=== PATIENT | male | born 1940 | race Caucasian/White ===

== ENCOUNTER 2021-01-03 08:47 | Outpatient (CLI) | payer MEDICARE, SELFPAY | END 2021-01-03 08:48 | disposition home or self-care (01) | LOC: ANHCOVIDVC 08:47 | PROVIDERS: PCP Family Medicine | DX: Z23 Encounter for immunization (principal) | CPT/HCPCS: 0001A; 91300 ==

== ENCOUNTER 2021-01-24 08:51 | Outpatient (CLI) | payer MEDICARE, SELFPAY | END 2021-01-24 08:52 | LOC: ANHCOVIDVC 08:52 | PROVIDERS: PCP Family Medicine | DX: Z23 Encounter for immunization (principal) | CPT/HCPCS: 0002A; 91300 ==

== ENCOUNTER 2021-04-13 10:49 | Outpatient (CLI) | payer MEDICARE, SELFPAY ==
--- NOTE | ~2021-04-13 | XR_ITS ---
EXAMINATION: XR lumbar spine min 4V DATE: 04/13/2021 11:33 INDICATION: Low back pain TECHNIQUE: Anteroposterior and lateral in neutral, flexion and extension views of the lumbar spine we re obtained. COMPARISON: None. FINDINGS: There are 9 mm of anterolisthesis of L4 on L5. No laxity is present with flexion or extensi on. There is moderate loss of intervertebral disc space height at L3-4 and severe loss of disc space height throughout the remainder of the lumbar spine. There are 33 degrees of lumbar dextroscoliosis. There is no fracture. The vertebral body heights are maintained. Degenerative osteophytes project fro m the anterior endplates of multiple vertebral bodies. Calcified atherosclerosis is noted. IMPRESSION: 1. Lumbar dextroscoliosis and severe spondylosis. Reviewed, dictated and finalized at location A.
== END 2021-04-13 10:50 | disposition home or self-care (01) ==
PROVIDERS: PCP Internal Medicine
DX: M41.9 Scoliosis, unspecified (principal); M47.816 Spondylosis without myelopathy or radiculopathy, lumbar region; I70.90 Unspecified atherosclerosis
CPT/HCPCS: 72110

== ENCOUNTER 2021-07-28 14:24 | Outpatient (CLI) | payer MEDICARE, SELFPAY ==
--- NOTE | 2021-07-31 13:38 | WPDPFTINT ---
PFT Procedure Performed PFT Procedure Performed Spirometry with Pre/Post Bronchodilator Plethysmography (Lung Vol) Diffusing Cap (DLCO) Flow Vol Loop PFT Interpretation Lung volumes were measured with the body plethysmography method. Lung volumes are unremarkable. Spirometry showed normal expiratory flow rates and a normal FEV1 to FVC ratio 72%. Following administration of a bronchodilator, there was no significant increase in expiratory flow rates. Lung diffusion capacity is within the normal range. The flow volume loop is unremarkable. Impression: Spirometry, lung volumes, and lung diffusion capacity all within the normal range.
== END 2021-07-28 14:25 | disposition home or self-care (01) ==
LOC: ANHPFT 14:26
PROVIDERS: PCP Internal Medicine; Visit Provider Nurse Practitioner
DX: R50.9 Fever, unspecified (principal)
CPT/HCPCS: 94060; 94726; 94729

== ENCOUNTER 2022-09-03 13:53 | Outpatient (CLI) | payer MEDICARE, SELFPAY ==
--- NOTE | ~2022-09-03 | US_ITS ---
EXAMINATION: US renal BI DATE: 09/03/2022 14:39 INDICATION: Chronic kidney disease, history of right nephrectomy TECHNIQUE: Multiple grayscale and Doppler ultrasound images of the left kidney were obtained. COMPARISON: None. FINDINGS: The right kidney is surgically absent. The left kidney measures 12.2 x 6.2 x 7.7 cm and con tains a 2.0 cm cyst. The kidney demonstrates normal parenchymal echogenicity. There is no hydronephro sis. The bladder is normal. IMPRESSION: 1. Left kidney cyst, otherwise unremarkable left kidney. Reviewed, dictated and finalized at location F.
[2022-09-03 16:29] LABS: Anion Gap 10 mmol/L (8-16); Blood Urea Nitrogen 26 mg/dL (9-20); Calcium 8.7 mg/dL (8.4-10.2); Carbon Dioxide 26 mmol/L (22-30); Chloride 101 mmol/L (98-107); Estimated Glomerular Filt Rate 53; Glucose 93 mg/dL (65-110); Phosphorus 3.4 mg/dL (2.5-4.5); Sodium 137 mmol/L (137-145)
[2022-09-03 17:14] LABS: Creatinine Urine 33.5 mg/dL; Total Protein Urine Random 24 mg/dL; Ur Ttl Prot Creatinine Ratio 0.72 mg/mg (0-0.20)
[2022-09-03 17:16] LABS: Sodium Urine Random 47 meq/L
[2022-09-06 00:24] LABS: Albumin 3.6 g/dL (3.8-4.8); Alpha 1 Globulin 0.3 g/dL (0.2-0.3); Alpha 2 Globulin 0.8 g/dL (0.5-0.9); Beta 1 Globulin 0.5 g/dL (0.4-0.6); Gamma Globulin 0.8 g/dL (0.8-1.7); Protein, Total 6.3 g/dL (6.1-8.1)
[2022-09-06 22:21] LABS: ANCA Screen Negative (Negative)
[2022-09-09 05:45] LABS: Total Protein/Creatinine Ratio 406 mg/g creat (25-148)
[2022-09-09 09:02] LABS: Anti Glomerular Basement Memb <1.0 AI (<1.0)
== END 2022-09-03 13:54 | disposition home or self-care (01) ==
PROVIDERS: PCP Internal Medicine; Visit Provider Internal Medicine Nephrology
DX: N18.31 Chronic kidney disease, stage 3a (principal); Z90.5 Acquired absence of kidney
CPT/HCPCS: 36415; 76775; 80069; 82570; 83520; 84155; 84156; 84165; 84166; 84300; 86036; 86038; 86039; 86225

== ENCOUNTER 2023-01-01 13:05 | Outpatient (CLI) | payer MEDICARE, SELFPAY ==
[2023-01-01 13:46] LABS: Creatinine Urine 82.4 mg/dL; Total Protein Urine Random 103 mg/dL; Ur Ttl Prot Creatinine Ratio 1.25 mg/mg (0-0.20)
[2023-01-01 13:55] LABS: Albumin Level 4.3 g/dL (3.5-5.1); Anion Gap 7 mmol/L (8-16); Blood Urea Nitrogen 25 mg/dL (9-20); Calcium 9.2 mg/dL (8.4-10.2); Carbon Dioxide 28 mmol/L (22-30); Chloride 102 mmol/L (98-107); Estimated Glomerular Filt Rate 49; Glucose 112 mg/dL (65-110); Phosphorus 3.7 mg/dL (2.5-4.5); Potassium 4.7 mmol/L (3.4-5.0); Sodium 137 mmol/L (137-145)
[2023-01-01 14:06] LABS: Parathyroid Intact 83.9 pg/mL (7.5-53.5)
[2023-01-01 14:11] LABS: Vitamin D 25 Hydroxy 47.4 ng/mL
== END 2023-01-01 13:06 | disposition home or self-care (01) ==
LOC: ANHLAB 13:08
PROVIDERS: PCP Internal Medicine; Visit Provider Internal Medicine Nephrology
DX: N18.31 Chronic kidney disease, stage 3a (principal); I12.9 Hypertensive chronic kidney disease with stage 1 through stage 4 chronic kidney disease, or unspecified chronic kidney disease; Z90.5 Acquired absence of kidney
CPT/HCPCS: 36415; 80069; 82306; 82570; 83970; 84156

== ENCOUNTER 2023-05-06 11:07 | Outpatient (CLI) | payer MEDICARE, SELFPAY ==
[2023-05-06 11:52] LABS: Albumin Level 3.8 g/dL (3.5-5.1); Anion Gap 7 mmol/L (8-16); Blood Urea Nitrogen 25 mg/dL (9-20); Calcium 8.8 mg/dL (8.4-10.2); Carbon Dioxide 30 mmol/L (22-30); Chloride 102 mmol/L (98-107); Estimated Glomerular Filt Rate 53; Glucose 98 mg/dL (65-110); Phosphorus 3.8 mg/dL (2.5-4.5); Sodium 139 mmol/L (137-145)
[2023-05-06 12:14] LABS: Creatinine Urine 94.3 mg/dL; Total Protein Urine Random 100 mg/dL; Ur Ttl Prot Creatinine Ratio 1.06 mg/mg (0-0.20)
== END 2023-05-06 11:08 | disposition home or self-care (01) ==
PROVIDERS: PCP Internal Medicine; Visit Provider Internal Medicine Nephrology
DX: N18.31 Chronic kidney disease, stage 3a (principal); I12.9 Hypertensive chronic kidney disease with stage 1 through stage 4 chronic kidney disease, or unspecified chronic kidney disease; Z90.5 Acquired absence of kidney
CPT/HCPCS: 36415; 80069; 82570; 84156

== ENCOUNTER 2023-09-03 14:41 | Outpatient (CLI) | payer MEDICARE, SELFPAY ==
[2023-09-03 15:20] LABS: Creatinine Urine 73.2 mg/dL; Total Protein Urine Random 145 mg/dL; Ur Ttl Prot Creatinine Ratio 1.98 mg/mg (0-0.20)
[2023-09-03 15:26] LABS: Anion Gap 10 mmol/L (8-16); Blood Urea Nitrogen 25 mg/dL (9-20); Calcium 9.1 mg/dL (8.4-10.2); Carbon Dioxide 27 mmol/L (22-30); Chloride 103 mmol/L (98-107); Estimated Glomerular Filt Rate 49; Glucose 118 mg/dL (65-110); Phosphorus 3.1 mg/dL (2.5-4.5); Potassium 4.1 mmol/L (3.4-5.0); Sodium 140 mmol/L (137-145)
[2023-09-03 15:37] LABS: Parathyroid Intact 84.4 pg/mL (7.5-53.5)
[2023-09-03 15:50] LABS: Vitamin D 25 Hydroxy 41.2 ng/mL
== END 2023-09-03 14:42 | disposition home or self-care (01) ==
PROVIDERS: PCP Internal Medicine; Visit Provider Internal Medicine Nephrology
DX: E55.9 Vitamin D deficiency, unspecified (principal); I12.9 Hypertensive chronic kidney disease with stage 1 through stage 4 chronic kidney disease, or unspecified chronic kidney disease; N18.31 Chronic kidney disease, stage 3a; N25.81 Secondary hyperparathyroidism of renal origin; Z90.5 Acquired absence of kidney
CPT/HCPCS: 36415; 80069; 82306; 82570; 83970; 84156

== ENCOUNTER 2024-01-01 14:19 | Outpatient (CLI) | payer MEDICARE, SELFPAY ==
[2024-01-01 14:51] LABS: Albumin Level 4.1 g/dL (3.5-5.1); Anion Gap 7 mmol/L (8-16); Blood Urea Nitrogen 23 mg/dL (9-20); Calcium 9.2 mg/dL (8.4-10.2); Carbon Dioxide 27 mmol/L (22-30); Chloride 102 mmol/L (98-107); Estimated Glomerular Filt Rate 58; Glucose 118 mg/dL (65-110); Phosphorus 3.2 mg/dL (2.5-4.5); Potassium 4.2 mmol/L (3.4-5.0); Sodium 136 mmol/L (137-145)
[2024-01-01 15:02] LABS: Creatinine Urine 51.4 mg/dL; Total Protein Urine Random 131 mg/dL; Ur Ttl Prot Creatinine Ratio 2.55 mg/mg (0-0.20)
== END 2024-01-01 14:20 | disposition home or self-care (01) ==
LOC: ANHLAB 14:21
PROVIDERS: PCP Internal Medicine; Visit Provider Internal Medicine Nephrology
DX: I12.9 Hypertensive chronic kidney disease with stage 1 through stage 4 chronic kidney disease, or unspecified chronic kidney disease (principal); N18.31 Chronic kidney disease, stage 3a; Z90.5 Acquired absence of kidney
CPT/HCPCS: 36415; 80069; 82570; 84156

== ENCOUNTER 2024-01-23 12:37 | Outpatient (CLI) | payer MEDICARE, SELFPAY ==
--- NOTE | ~2024-01-23 | CT_ITS ---
Non-contrast CT scan of the Abdomen Clinical indication: History of renal cell carcinoma Technique: 2.5 mm axial scans were obtained through the abdomen without intravenous or oral contrast . Dose reduction technique was used on this scan by utilizing automated exposure control and iterativ e reconstruction technique. The dose-length product (DLP) was 1052.57 mGy-cm. Findings: Images through the lung bases reveal fissural nodules along the right minor fissure (axial image 6). 5 mm pleural-based nodule noted the right lung base (axial image 16). 4 mm right middle lo be nodule noted (axial image 21). Additional 4 mm pleural-based nodule the right lower lobe noted (ax ial image 23).. 12 mm low-density hepatic lesion is most compatible small cyst. The spleen, pancreas, gallbladder, le ft adrenal gland, and left kidney appear normal. Status post right nephrectomy and right adrenalectom y. There are atherosclerotic calcifications of the aorta. . Evidence of prior herniorrhaphy. Visualized bowel loops are unremarkable. Impression: Several subcentimeter pulmonary nodules the right lung base. The proximal most likely benign, early m etastatic disease not completely excluded given history. Comparison with any prior CT scans would be useful if available. Otherwise, consider follow-up CT in 3 have in 6 months to assure stability of th e nodules. No evidence of recurrent metastatic disease in the abdomen otherwise. Status post right nephrectomy a nd right adrenalectomy. Reviewed, dictated and finalized at location . Impression: Several subcentimeter pulmonary nodules the right lung base. The proximal most likely benign, early metastatic disease not completely excluded given history. Comparison with any prior CT scans would be useful if available. 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 No evidence of recurrent metastatic disease in the abdomen otherwise. Status po st right nephrectomy and right adrenalectomy.
== END 2024-01-23 12:38 | disposition home or self-care (01) ==
PROVIDERS: PCP Internal Medicine; Visit Provider Internal Medicine Nephrology
DX: Z90.5 Acquired absence of kidney (principal); I12.9 Hypertensive chronic kidney disease with stage 1 through stage 4 chronic kidney disease, or unspecified chronic kidney disease; N18.9 Chronic kidney disease, unspecified
CPT/HCPCS: 74150

== ENCOUNTER 2024-05-12 14:37 | Outpatient (CLI) | payer MEDICARE, SELFPAY ==
[2024-05-12 15:56] LABS: Albumin Level 4.1 g/dL (3.5-5.1); Anion Gap 12 mmol/L (4-12); Blood Urea Nitrogen 23 mg/dL (9-20); Calcium 9.5 mg/dL (8.4-10.2); Carbon Dioxide 25 mmol/L (22-30); Chloride 102 mmol/L (98-107); Estimated Glomerular Filt Rate 58; Glucose 96 mg/dL (65-110); Phosphorus 3.2 mg/dL (2.5-4.5); Potassium 3.7 mmol/L (3.4-5.0); Sodium 139 mmol/L (137-145)
[2024-05-12 15:58] LABS: Creatinine Urine 95.2 mg/dL; Total Protein Urine Random 108 mg/dL; Ur Ttl Prot Creatinine Ratio 1.13 mg/mg (0-0.20)
[2024-05-12 16:07] LABS: Parathyroid Intact 94.2 pg/mL (7.5-53.5)
[2024-05-12 18:51] LABS: Vitamin D 25 Hydroxy 41.4 ng/mL
== END 2024-05-12 14:38 | disposition home or self-care (01) ==
LOC: ANHLAB 14:40
PROVIDERS: PCP Internal Medicine; Visit Provider Internal Medicine Nephrology
DX: I12.9 Hypertensive chronic kidney disease with stage 1 through stage 4 chronic kidney disease, or unspecified chronic kidney disease (principal); N18.31 Chronic kidney disease, stage 3a; E55.9 Vitamin D deficiency, unspecified; N25.81 Secondary hyperparathyroidism of renal origin; Z90.5 Acquired absence of kidney
CPT/HCPCS: 36415; 80069; 82306; 82570; 83970; 84156

== ENCOUNTER 2024-09-15 15:01 | Outpatient (CLI) | payer MEDICARE, SELFPAY ==
[2024-09-15 15:39] LABS: Albumin Level 4.2 g/dL (3.5-5.1); Anion Gap 7 mmol/L (4-12); Blood Urea Nitrogen 29 mg/dL (9-20); Calcium 9.4 mg/dL (8.4-10.2); Carbon Dioxide 29 mmol/L (22-30); Chloride 102 mmol/L (98-107); Estimated Glomerular Filt Rate 49; Glucose 99 mg/dL (65-110); Phosphorus 3.6 mg/dL (2.5-4.5); Potassium 4.4 mmol/L (3.4-5.0); Sodium 138 mmol/L (137-145)
[2024-09-15 15:46] LABS: Creatinine Urine 89.6 mg/dL; Total Protein Urine Random 39 mg/dL; Ur Ttl Prot Creatinine Ratio 0.44 mg/mg (0-0.20)
[2024-09-15 15:50] LABS: Parathyroid Intact 74.2 pg/mL (14.5-75.2)
[2024-09-15 16:03] LABS: Vitamin D 25 Hydroxy 47.1 ng/mL
== END 2024-09-15 15:02 | disposition home or self-care (01) ==
PROVIDERS: PCP Internal Medicine; Visit Provider Internal Medicine Nephrology
DX: I12.9 Hypertensive chronic kidney disease with stage 1 through stage 4 chronic kidney disease, or unspecified chronic kidney disease (principal); N18.31 Chronic kidney disease, stage 3a; Z90.5 Acquired absence of kidney; N25.81 Secondary hyperparathyroidism of renal origin; E55.9 Vitamin D deficiency, unspecified
CPT/HCPCS: 36415; 80069; 82306; 82570; 83970; 84156

== ENCOUNTER 2025-03-16 14:03 | Outpatient (CLI) | payer MEDICARE, SELFPAY ==
--- OUTSIDE RECORDS SUMMARY | 2025-03-16 14:11 | XMS_ITS | Referral Summary ---
Author Organization [facility] C Address [address] [place] [address] Care Team Providers Care Chef Kitchen Manager Name Role Phone Jorge Luis Morales MD Primary Care Provider Allergies Active Allergy Reactions Criticality Noted Date Comments Azithromycin Swelling,Rash,Other (See comments),Redness High Lumps in neck, distorted hearing, rash from head to toe Carvedilol Other (See comments) High Reaction: Arrhythmia, Erythromycin Rash,Other (See comments),Flushing (skin) Reaction: Rash, Other, Veronica syndrome, Medications amLODIPine (NORVASC) 5 mg tablet Take 5 mg by mouth 2 (two) times a day Active clopidogreL (PLAVIX) 75 mg tablet Take 75 mg by mouth daily Active venlafaxine 37.5 mg tablet extended release 24hr 24 hr tablet Take 37.5 mg by mouth daily with breakfast Active atorvastatin (LIPITOR) 10 mg tablet Take 5 mg by mouth daily Active aspirin 81 mg enteric coated tablet Take 81 mg by mouth daily Active multivitamin capsule Take 1 capsule by mouth daily Active calcium citrate 250 mg calcium tablet tablet Take 500 mg by mouth daily Active magnesium gluconate (MAGONATE) 27.5 mg magne- sium (500 mg) tabletIndicatio ns:hypomagnesem ia Take 500 mg by mouth daily Active coenzyme Q10 100 mg capsule Take 100 mg by mouth daily Active lutein 6 mg tablet Take by mouth 2 (two) times a day Active Active Problems Problem Noted Date Diagnosed Date 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 Abnormal findings on radiolo gical examination of gastrointestinal tract 07/13/2015 Lung mass 03/10/2014 Renal cell carcinoma 01/05/2009 Social History Tobacco Use Types Packs/Day Years Used Date Smoking Tobacco: Former Cigarettes Q uit: 1954 PHQ-2 Answer Date Recorded PHQ-2 Total Score (If total score is 3 or more points, staff should administer the PHQ-9) 0 04/26/2021 Sex and Gender Information Value Date Recorded Sex Assigned at Not on file 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 [employer] Gender Identity Not on file Sexual Orientation Not on file Last Filed Vital Signs Vital Sign Reading Time Taken Comments Blood Pressure 160/90 07/13/2015 3:09 PM CDT Pulse 61 07/13/2015 3:09 PM CDT Temperature - - Respiratory Rate 14 04/26/2021 12:12 PM CDT Oxygen Saturation - - Inhaled Oxygen Concentration - - Weight 116 kg (255 lb 12.8 oz) 04/26/2021 12:12 PM CDT Height 165.1 cm (5' 5) 04/26/2021 12:12 PM CDT Body Mass Index 42.57 04/26/2021 12:12 PM CDT Plan of Treatment Not on file Insurance [employer] MEDICARE ADVANTAGE [facility] MEDICARE ADVANTAGE Care Teams Chef Kitchen Manager Relationship Specialty Start Date End Date Jorge Luis Morales MD [address] [facility] [address] [place] [address] PCP - General 02/28/21
--- OUTSIDE RECORDS SUMMARY | 2025-03-16 14:11 | XMS_ITS | Clinical Summary ---
Author Organization [facility] Address [address] [place] [address] Care Team Providers Care Motion Picture Narrator Name Role Phone Jorge Luis Morales MD Primary Care Provider [phone] Source Comments [facility],non-owned Affiliates and Associated Physician Practices is amultiple site organization consisting of ambulatory clinics and hospital sitesin [place], [place], [place] and [place]. This disclosure is being madepursuant to the Care Everywhere program and may not contain all information available regarding this patient. Last updated 18.[facility] Allergies Active Allergy Reactions Criticality Noted Date Comments Azithromycin Other,Rash,Skin Reactions,Swelling High 06/09/2009 Lumps in neck, distorted hearing, rash from head to toe Carvedilol Other High 11/29/2021 BETA ABEL Reaction: Arrhythmia, Erythromycin Rash,Skin Reactions High 11/29/2021 Reaction: Rash, Veronica syndrome, Etodolac Diarrhea Low 11/29/2021 Lisinopril Cough Medium 06/23/2015 SUZANNE INHIBITOR Losartan Unknown Low 11/29/2021 SUZANNE INHIBITOR Medications * Be aware that medications may not be up to date on this document. Alwaysverify current medications with the patient. amLODIPine (NORVASC) 5 MG tablet Take 5 mg by mouth 2 times daily 10/09/2021 Active aspirin EC (ECOTRIN) 81 MG tablet Take 81 mg by mouth once daily Active atorvastatin (LIPITOR) 10 MG tablet Take 5 mg by mouth once daily 10/09/2021 Active Calcium Citrate 1040 MG Take 500 mg by mouth once daily Active clopidogrel (PLAVIX) 75 MG tablet Take 75 mg by mouth once daily 09/24/2021 Active coenzyme Q10 100 MG capsule Take 100 mg by mouth once daily Active difluprednate (DUREZOL) 0.05 % ophthalmic suspension Durezol 0.05 % eye drops Active furosemide (LASIX) 40 MG tablet Take 10 mg by mouth once daily Active glucosamine (GLUCOSAMINE) 500 MG tablet Take 500 mg by mouth once daily Active Lutein 6 MG Take 1 tablet by mouth once daily 20mg once a day per pt. Active magnesium gluconate (MAGTRATE) 500 MG tablet Take 500 mg by mouth once daily Active montelukast (SINGULAIR) 10 MG tablet Take 10 mg by mouth every evening Active moxifloxacin (VIGAMOX) 0.5 % ophthalmic solution Vigamox 0.5 % eye drops Active multivitamins (ONE A DAY) capsule Take 1 capsule by mouth once daily Active nepafenac (NEVANAC) 0.1 % ophth suspension Nevanac 0.1 % eye drops,suspen jacques Active triamcinolone (NASACORT AQ) 55 MCG/ACT nasal inhaler [place] 1 spray into each nostril once daily Active venlafaxine (EFFEXOR) 37.5 MG tablet Take 37.5 mg by mouth once daily 11/27/2021 Active ELIQUIS 5 MG tablet Take 5 mg by mouth 2 times daily 01/25/2022 Active Active Problems No known active problems Immunizations Immunization Administration Dates Next Due INFLUENZA VACCINE, TRIV. (AF LURIA, FLUZONE TRIVALENT; 6MO+) (IIV3) 08/19/2014 FLU VACCINE QUAD IIV4 SPLIT 0.25 ML IM FLU VACCINE TRI IIV3 SPLIT PF IM (FLUVIRIN) 01/2013 INFLUENZA VACCINE 08/26/2018,08/26/2017 INFLUENZA VACCINE, HIGH-DOSE , QUADR. (FLUZONE HIGH-DOSE QUADRIVALENT; 65Y+), 0.7 ML (HD-IIV4) 08/21/2016 PNEUMOCOCCAL PPSV23 05/10/2015 Pneumococcal Pcv13 Conj 11/08/2014 Social History Tobacco Use Types Packs/Day Years Used Date Smoking Tobacco: Never Smokeless Tobacco: Never Alcohol Use Standard Drinks/Week Comments Never 0 (1 standard drink = 0.6 oz pur e alcohol) PHQ-2 Answer Date Recorded PHQ2 TOTAL SCORE 0 02/12/2022 Sex and Gender Information Value Date Recorded Sex Assigned at Not on file Legal Sex Male 10:18 AM CDT Gender Identity Not on file Sexual Orientation Not on file Last Filed Vital Signs Vital Sign Reading Time Taken Comments Blood Pressure 106/74 11/29/2021 2:24 PM BILLET RECORDER Pulse - - Temperature 36.7 C (98 F) 11/29/2021 2:24 PM BILLET RECORDER Respiratory Rate - - Oxygen Saturation - - Inhaled Oxygen Concentration - - Weight 117.7 kg (259 lb 6 oz) 11/29/2021 2:24 PM BILLET RECORDER Height 165.1 cm (5' 5) 11/29/2021 2:24 PM BILLET RECORDER Body Mass Index 43.16 11/29/2021 2:24 PM BILLET RECORDER Plan of Treatment Health Maintenance Due Date Last Done Comments DTAP/TDAP/TD VACCINES (1 - Tdap) 1961 ZOSTER VACCINE (1 of 2) 1992 Respiratory Syncytial Virus (RSV) Vaccine Pt: or over 60 yrs (1 - 1-dose 75+ series) 2017 COVID-19 VACCINE ( - season) 2024 DEPRESSION SCREENING 10/21/2024 MEDICARE AWV CALENDAR YEAR 2024 INFLUENZA VACCINE (Season Ended) 2025 08/03/2021, 08/26/2018, 08/26/2017, Additional history exists PNEUMOCOCCAL VACCINE 50+ Completed 05/10/2015, 10/21 HEPATITIS B VACCINE Aged Out No longe r eligible based on patient's age to complete this topic HIB VACCINE Aged Out No longer eligi ble based on patient's age to complete this topic HPV VACCINE Aged Out No longer eligi ble based on patient's age to complete this topic MENINGOCOCCAL (Group B) VACCINE SHARED DECISION-MAKING Aged Out No longer eligible based on patient's age to complete this topic MENINGOCOCCAL GROUPS A/C/Y/W VACCINE Aged Out No longer eligible based on patient's age to complete this topic Insurance [facility] MANAGED MEDICARE ADV [facility] MANAG[facility] MEDICARE ADV Care Teams Motion Picture Narrator Relationship Specialty Start Date End Date Jorge Luis Morales MD [address] [place] [phone] PCP - General Internal Medicine 11/29/21
--- OUTSIDE RECORDS SUMMARY | 2025-03-16 14:11 | XMS_ITS | Clinical Summary ---
Author Organization [facility] C Address [address] [place] [address] Care Team Providers Care Digital Retoucher Name Role Phone Jorge Luis Morales MD [...] Lung mass 03/10/2014 Renal cell carcinoma 01/05/2009 Surgical History Surgery Date Site/Laterality Comments DC LAPAROSCOPY RADICAL NEPHRECTOMY Right Kidney Surgery Laparoscopic Radical Nephrectomy - RCC, clear cell type, grade 2, (-) margins (Added by TW Conv) UMBILICAL HERNIA REPAIR 10/21/1996 - 10/20/1997 NEPHRECTOMY 10/21/2008 - 10/20/2009 Right INCISIONAL HERNIA REPAIR 10/21/2008 - 10/20/2009 INGUINAL HERNIA REPAIR 10/21/2016 - 10/20/2017 Left CATARACT EXTRACTION, BILATERAL 10/21/2012 - 10/20/2013 CARDIAC STENT PLACEMENT 10/21/2005 - 10/20/2006 Medical History Medical History Date Comments Personal history of urinary calculi Nephrolithiasis - 1976 (Added by TW Conv) Personal history of other di seases of the circulatory system History of hypertension - (A dded by TW Conv) Depression Sinus problem CAD (coronary artery disease) History of NV (myocardial infarction) 2005 Heart murmur HTN (hypertension) Renal cell carcinoma (HCC) 2008 History of bronchitis Prostate disorder Kidney stone Arthritis Gout Sleep apnea with use of cont inuous positive airway pressure (CPAP) Family History Medical History Relation Name Comments Diabetes Brother Family history of diabetes mellitus - (Added by TW Conv) Hypertension Brother Heart disease Father Cancer Mother Diabetes Mother Family history of diabetes mellitus - (Added by TW Conv) Heart disease Mother Hypertension Mother Diabetes Sister Family history of diabetes mellitus - (Added by TW Conv) Hypertension Sister Relation Name Status Comments Brother Father Mother Sister Social History Tobacco Use Types Packs/Day Years Used Date Smoking Tobacco: Former Cigarettes Q uit: 1956 PHQ-2 Answer Date Recorded PHQ-2 Total Score (If total score is 3 or more points, staff should administer the PHQ-9) 0 04/26/2021 Sex and Gender Information Value Date Recorded Sex Assigned at Not on file 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
--- OUTSIDE RECORDS SUMMARY | 2025-03-16 14:11 | XMS_ITS | Data Portability ---
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 malignant tumor 2. benign tumor 3. inflammatory processes 4. infectious process (viral, atypical bacterial, fungal, atypical mycobacterial) The Fleischner Society pulmonary nodule recommendations below pertain to the follow-up and management of indeterminate pulmonary nodules detected incidentally on CT and are published by the Fleischner Society. The guideline does not apply to lung cancer screening, patients younger than 35 years, or patients with a history of primary cancer or immunosuppression. These recommendations reflect the 2017 revision 4, which supersedes prior versions published in 2005 and 2013. Multiple solid nodules <6 mm (<100 mm3) *low-risk patients: no routine follow-up required *high-risk patients: optional CT at 12 months Multiple solid nodules >6 mm (>100 mm3) *low-risk patients: CT at 3-6 months, then consider CT at 18-24 months *high-risk patients: CT at 3-6 months, then CT at 18-[address] one week before return. PAP compliance downloaded and interpreted x 20 minutes. Data reviewed and explained to the patient. Average apnea/hypopnea index (AHI) is 0.4. Patient used PAP > 4 hours 100% of the time. PAP is set at 13 cmH2O. PAP will remain at 13 cmH2O. Oxygen supplementation: none Patient is benefiting from PAP therapy. Encouraged patient to maintain PAP use more than 70% of the time. Statement of PAP use and benefits will be sent to the home care store. Educated the patient on problems and solutions associated with positive airway pressure (PAP) use. Difficulty tolerating pressure, mask leaks, intolerance of interface, nasal congestion, claustrophobic response, dry mouth, and unintentional mask removal during sleep were covered. Patient's mask leaks air. We will ensure the mask is situated properly. Patient can wear protective eye covering during sleep, and the mask can be resized. Patient experiences nasal congestion. Patient will use nasal saline spray before starting PAP, use heated PAP humidifier, clean/air dry humidifier reservoir daily, use nasal steroid spray, use ipratropium bromide nasal spray if rhinitis/rhinorrhe a is present or obtain an oronasal/oral interface. Dry mouth is a normal occurrence for people who just start out on PAP therapy because they are not used to air blowing in to the throat to hold open. Dry mouth is exacerbated for people who wear nasal PAP mask and whose jaw drops open during sleep. Not only does this create a much less efficient therapy because of leakage, it also causes dry mouth. There are a couple solutions to help prevent this type of problem. A simple solution would be to wear a chinstrap which essentially holds the jaw in place. A second solution would be a switch to a full face mask which covers both the nose and mouth. Although this is another easy solution, using a full face mask for some could seem claustrophobic or confining. There is no silver bullet solution as no single mask is right for everybody. Sometimes it takes a bit of experimentation to find a PAP mask which best meets the patient's needs as well as fits comfortably. Another tactic is to use a humidifier on your PAP machine. Most new PAP machines have integrated humidifiers. Humidification is ann when dealing with symptoms of dry mouth because the humidifier can supply both warm and room temperate air. Even a small amount of humidity in the airflow will help nasal passages to stay hydrated. If a person is using both a full face mask and a PAP machine with a heated humidifier and is still experiencing dry mouth, an ill-fitted PAP mask might be causing the problem. Leakage can be caused by a mask that is to large or small, the wrong style mask, the cushion is degraded or simply because the mask's straps aren't adjusted correctly. If leakage occurs, dry air from the room can leak in while humidification escapes. The result is reduced humidification within the circuit and resulting in dry throat and mouth. Finally, beyond factors involving the PAP machine and mask, dry mouth can also be caused or worsened by dehydration. The general recommendation to during eight 8 oz. glasses of water a day might be too little for many people. When people drink large amounts of coffee or other caffeine beverages, or sweat a lot during the day, making sure to rehydrate is an important part of PAP therapy. Provided the patient with a list of local home care stores where positive airway pressure (PAP) units, accoutrement, and services are available. Home care store selection is based on patient's insurance carrier. Patient will setup an appointment with [facility] for supplies and pressure adjustments. A major predictor of success with use of PAP is follow-up with both the respiratory supplier and the treating physician. The respiratory supplier optimally will follow-up within two weeks after starting use while the treating physician optimally will follow-up within 90 days after starting therapy to assess adherence and effectiveness of treatment. The download results can show the treating physician information about adherence to treatment, residual AHI while on treatment and presence of large mask leakage. This information is especially helpful if the patient has residual sleepiness despite treatment. General information on sleep disordered breathing, evaluation of sleep disordered breathing, treatment with PAP therapy, and living with PAP therapy were covered. We discussed with the patient the impact of weight on: Sleep disordered breathing Hypertension Mixed hyperlipidemia CAD Thoracolumbar DDD Lumbar scoliosis DVT Gout We discussed with the patient the benefit of PAP therapy on: Sleep disordered breathing Anxiety/Depression Erythrocytosis Hypertension [place] Educated the patient on sleep hygiene measures. Relaxing rituals to rest easy, understanding foods with positive and negative impact on sleep, creating a peaceful sleep environment, timing of exercise, using herbal sleep aids, and practicing sleep-friendly meditation were covered. To determine how much sleep is needed, the patient will assess where he falls on the spectrum, examine what lifestyle factor such as stress is affecting the quality and quantity of sleep. In general, adults need 7-9 hours of sleep. Educated the patient regarding foods that promote sleep. These include but are not limited to cherries, bananas, toast, oatmeal, and warm milk. Educated the patient regarding foods and drinks to avoid before bedtime. These include but are not limited to aged cheese, chocolate, spicy foods, tomato-based sauces, soy, ginseng tea and processed meat. Advocated influenza vaccination annually and pneumonia vaccination ANGIE. Advocated weight loss through diet and exercise. Patient's ideal body weight according to height and gender is up to 145 lbs. Encouraged patient to adjust caloric intake to maintain/achieve ideal body weight, emphasizing on fruits, vegetables, whole grains, and fat-free or low-fat products. These include lean meats, poultry, fish, beans, eggs, and nuts and foods that are low in saturated fats, trans-fats, cholesterol, salt (sodium), and glycemic index. Stressed the importance of regular exercise up to the patient's capacity limits. In this case, we recommend 20 min daily walking, 2 days a week of resistance training. Patient to monitor BP daily and bring records to PCP for further management. 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 malignant tumor 2. benign tumor 3. inflammatory processes 4. infectious process (viral, atypical bacterial, fungal, atypical mycobacterial) The Fleischner Society pulmonary nodule recommendations below pertain to the follow-up and management of indeterminate pulmonary nodules detected incidentally on CT and are published by the Fleischner Society. The guideline does not apply to lung cancer screening, patients younger than 35 years, or patients with a history of primary cancer or immunosuppression. These recommendations reflect the 2017 revision 4, which supersedes prior versions published in 2005 and 2013. Multiple solid nodules <6 mm (<100 mm3) *low-risk patients: no routine follow-up required *high-risk patients: optional CT at 12 months Multiple solid nodules >6 mm (>100 mm3) *low-risk patients: CT at 3-6 months, then consider CT at 18-24 months *high-risk patients: CT at 3-6 months, then CT at 18-[address] one week before return. PAP compliance downloaded and interpreted x 20 minutes. Data reviewed and explained to the patient. Average apnea/hypopnea index (AHI) is 0.5. Patient used PAP > 4 hours 99% of the time. PAP is set at 13 cmH2O. PAP will remain at 13 cmH2O. Oxygen supplementation: none Patient is benefiting from PAP therapy. Encouraged patient to maintain PAP use more than 70% of the time. Statement of PAP use and benefits will be sent to the home care store. Educated the patient on problems and solutions associated with positive airway pressure (PAP) use. Difficulty tolerating pressure, mask leaks, intolerance of interface, nasal congestion, claustrophobic response, dry mouth, and unintentional mask removal during sleep were covered. Patient's mask leaks air. We will ensure the mask is situated properly. Patient can wear protective eye covering during sleep, and the mask can be resized. Patient experiences nasal congestion. Patient will use nasal saline spray before starting PAP, use heated PAP humidifier, clean/air dry humidifier reservoir daily, use nasal steroid spray, use ipratropium bromide nasal spray if rhinitis/rhinorrhe a is present or obtain an oronasal/oral interface. Dry mouth is a normal occurrence for people who just start out on PAP therapy because they are not used to air blowing in to the throat to hold open. Dry mouth is exacerbated for people who wear nasal PAP mask and whose jaw drops open during sleep. Not only does this create a much less efficient therapy because of leakage, it also causes dry mouth. There are a couple solutions to help prevent this type of problem. A simple solution would be to wear a chinstrap which essentially holds the jaw in place. A second solution would be a switch to a full face mask which covers both the nose and mouth. Although this is another easy solution, using a full face mask for some could seem claustrophobic or confining. There is no silver bullet solution as no single mask is right for everybody. Sometimes it takes a bit of experimentation to find a PAP mask which best meets the patient's needs as well as fits comfortably. Another tactic is to use a humidifier on your PAP machine. Most new PAP machines have integrated humidifiers. Humidification is ann when dealing with symptoms of dry mouth because the humidifier can supply both warm and room temperate air. Even a small amount of humidity in the airflow will help nasal passages to stay hydrated. If a person is using both a full face mask and a PAP machine with a heated humidifier and is still experiencing dry mouth, an ill-fitted PAP mask might be causing the problem. Leakage can be caused by a mask that is to large or small, the wrong style mask, the cushion is degraded or simply because the mask's straps aren't adjusted correctly. If leakage occurs, dry air from the room can leak in while humidification escapes. The result is reduced humidification within the circuit and resulting in dry throat and mouth. Finally, beyond factors involving the PAP machine and mask, dry mouth can also be caused or worsened by dehydration. The general recommendation to during eight 8 oz. glasses of water a day might be too little for many people. When people drink large amounts of coffee or other caffeine beverages, or sweat a lot during the day, making sure to rehydrate is an important part of PAP therapy. Provided the patient with a list of local home care stores where positive airway pressure (PAP) units, accoutrement, and services are available. Home care store selection is based on patient's insurance carrier. Patient will setup an appointment with [facility] for supplies and pressure adjustments. A major predictor of success with use of PAP is follow-up with both the respiratory supplier and the treating physician. The download results can show the treating physician information about adherence to treatment, residual AHI while on treatment and presence of large mask leakage. This information is especially helpful if the patient has residual sleepiness despite treatment. General information on sleep disordered breathing, evaluation of sleep disordered breathing, treatment with PAP therapy, and living with PAP therapy were covered. We discussed with the patient the impact of weight on: Sleep disordered breathing Hypertension Mixed hyperlipidemia CAD Thoracolumbar DDD Lumbar scoliosis DVT Gout We discussed with the patient the benefit of PAP therapy on: Sleep disordered breathing Anxiety/Depression Erythrocytosis Hypertension [place] Educated the patient on sleep hygiene measures. Relaxing rituals to rest easy, understanding foods with positive and negative impact on sleep, creating a peaceful sleep environment, timing of exercise, using herbal sleep aids, and practicing sleep-friendly meditation were covered. To determine how much sleep is needed, the patient will assess where he falls on the spectrum, examine what lifestyle factor such as stress is affecting the quality and quantity of sleep. In general, adults need 7-9 hours of sleep. Educated the patient regarding foods that promote sleep. These include but are not limited to cherries, bananas, toast, oatmeal, and warm milk. Educated the patient regarding foods and drinks to avoid before bedtime. These include but are not limited to aged cheese, chocolate, spicy foods, tomato-based sauces, soy, ginseng tea and processed meat. Advocated influenza vaccination annually and pneumonia vaccination ANGIE. Advocated weight loss through diet and exercise. Patient's ideal body weight according to height and gender is up to 145 lbs. Encouraged patient to adjust caloric intake to maintain/achieve ideal body weight, emphasizing on fruits, vegetables, whole grains, and fat-free or low-fat products. These include lean meats, poultry, fish, beans, eggs, and nuts and foods that are low in saturated fats, trans-fats, cholesterol, salt (sodium), and glycemic index. Stressed the importance of regular exercise up to the patient's capacity limits. In this case, we recommend 20 min daily walking, 2 days a week of resistance training. Patient to monitor BP daily and bring records to PCP for further management. Follow-up: 1 year, September 2025 [email or web address] Not available 09/30/2024 16:12:31 Plan of Treatment Reminders Order Date Submit Date Provider Last Modified By Organization Details Last Modified Time Details Appointments Any 15 2024 02:00P Julianne Rodríguez MD Not available Not available Not available Lab lipid panel, serum 2023 [facility], [address] [place], [address], 08/20/2024 18:42:48 CMP, serum or plasma 2023 [facility], [address] [place], [address], 08/20/2024 18:42:54 CBC w/ auto diff 2023 [facility], [address] [place], [address], 08/20/2024 17:54:23 TSH, serum or plasma 2023 [facility], [address] [place], [address], 08/20/2024 19:03:49 T4, free, serum 2023 [facility], [address] [place], [address], 08/20/2024 18:44:39 Referral None recorded. Procedures None recorded. Surgeries None recorded. Imaging CT, chest, w/o contrast 2023 025 [email or web address] Not available 09/30/2024 16:33:58 CT, chest, w/o contrast 2023 024 [email or web address] [facility] ([facility] [address] [place], [address], 09/21/2024 13:06:58 Medication Orders None recorded. Patient TargetsNo targets recorded. Patient Instructions Encounter Date Encounter Id Patient Instructions Last Modified By Organization Details Last Modified Time 04/16/2024 [id number] Follow-up carpio ry artery disease, essential hypertension, hyperlipidemia, renal failure stage IIIA as well as obesity class three all clinically stable. Most recent blood work look adequate. No reason for further evaluation. Had an echocardiogram done back in January which showed ejection fraction 65% with some diastolic dysfunction. Clinically stable otherwise. Will continue with current medications follow-up in four months. Next Appointment: 4 Months Approximate Date: 08/14/2024 Portions of the record may have been created with voice recognition software. Occasional wrong-word or [id number] substitutions may have occurred due to the inherent limitations of voice recognition software. Read the chart carefully and recognize, using context, where substitutions have occurred. [email or web address] Not available 04/16/2024 16:16:06 08/20/2024 [id number] Follow-up carpio ry artery disease, essential hypertension, hyperlipidemia, gout, deep vein thrombosis by history as well as obesity class two. All clinically stable at this time. Will check blood work consisting of CBC, CMP, lipid, and thyroid. Continue on current Rx follow-up in four months Follow Up: 4 Months Approximate Date: 12/18/2024 Portions of the record may have been created with voice recognition software. Occasional wrong-word or [id number] substitutions may have occurred due to the inherent limitations of voice recognition software. Read the chart carefully and recognize, using context, where substitutions have occurred. [email or web address] Not available 08/20/2024 16:25:37 12/17/2024 [id number] Follow-up carpio ry artery disease, essential hypertension, hyperlipidemia, intermittent gout, malignant tumor of the right kidney stable as well as obesity class three. All clinically doing well. No need for further laboratory evaluation had some recently. Will continue on current Rx and follow-up in four months. Follow Up: 4 Months Approximate Date: 04/16/2025 Portions of record are template driven. When necessary additional context will be provided. Additionally some portions have been created with voice recognition software. Occasional wrong-word or [id number] substitutions may have occurred due to the inherent limitations of voice recognition software. Read the chart carefully and recognize, using context, where substitutions may have occurred. Created: Jorge Luis Morales M.D. 12.17.2024 03:30 PM [email or web address] Not available 12/17/2024 16:30:37 Reason for Referral None Reported. Results Created Date Observation Date Name Description Value Unit Range Abnormal Flag Note LastModifiedBy Organization Detail LastModifiedTime 08/20/2008/20/2024 CBC/C OMPLE TE BLD COUNT W/DIF F white blood cells 9.2 x10'3 /uL 4.2-10 .8 Not Available [facility] (Lab) [address] [place], [address], 08/20/2024 17:54:22 08/20/2008/20/2024 CBC/C OMPLE TE BLD COUNT W/DIF F red blood cells 5.32 x10'6 /uL 4.10-5 .80 Not Available [facility] (Lab) [address] [place], [address], 08/20/2024 17:54:22 08/20/2008/20/2024 CBC/C OMPLE TE BLD COUNT W/DIF F hemoglobin 16.1 g/dL 13.2-1 7.0 Not Available [facility] (Lab) [address] [place], [address], 08/20/2024 17:54:22 08/20/2008/20/2024 CBC/C OMPLE TE BLD COUNT W/DIF F hematocrit 48.4 % 39.3-5 0.0 Not Available [facility] (Lab) [address] [place], [address], 08/20/2024 17:54:22 08/20/2008/20/2024 CBC/C OMPLE TE BLD COUNT W/DIF F mean red cell volume 91.0 fL 80.0-9 7.0 Not Available [facility] (Lab) [address] [place], [address], 08/20/2024 17:54:22 08/20/20 24 08/20/2024 CBC/C OMPLE TE BLD COUNT W/DIF F mean red cell hemoglobin 30.3 pg 27.0-3 3.0 Not Available [facility] (Lab) [address] [place], [address], 08/20/2024 17:54:22 08/20/2008/20/2024 CBC/C OMPLE TE BLD COUNT W/DIF F mean RBC HGB concentratio n 33.3 g/dL 31.0-3 6.0 Not Available [facility] (Lab) [address] [place], [address], 08/20/2024 17:54:22 08/20/2008/20/2024 CBC/C OMPLE TE BLD COUNT W/DIF F red cell distribution width 13.8 % 11.8-1 5.5 Not Available [facility] (Lab) [address] [place], [address], 08/20/2024 17:54:22 08/20/2008/20/2024 CBC/C OMPLE TE BLD COUNT W/DIF F platelets 264 x10'3 /uL 150-40 0 Not Available [facility] (Lab) [address] [place], [address], 08/20/2024 17:54:22 08/20/2008/20/2024 CBC/C OMPLE TE BLD COUNT W/DIF F mean platelet volume 11.1 fL 9.0-12 .4 Not Available [facility] (Lab) [address] [place], [address], 08/20/2024 17:54:22 08/20/2008/20/2024 CBC/C OMPLE TE BLD COUNT W/DIF F neutrophils 67.8 % 39.0-7 2.0 Not Available [facility] (Lab) [address] [place], [address], 08/20/2024 17:54:22 08/20/20 24 08/20/2024 CBC/C OMPLE TE BLD COUNT W/DIF F lymphocytes 12.9 % 16.0-4 7.0 low Not Available [facility] (Lab) [address] [place], [address], 08/20/2024 17:54:22 08/20/2008/20/2024 CBC/C OMPLE TE BLD COUNT W/DIF F monocytes 11.6 % 5.0-12 .0 Not Available [facility] (Lab) [address] [place], [address], 08/20/2024 17:54:22 08/20/2008/20/2024 CBC/C OMPLE TE BLD COUNT W/DIF F eosinophils 6.2 % 1.0-7. 0 Not Available [facility] (Lab) [address] [place], [address], 08/20/2024 17:54:22 08/20/2008/20/2024 CBC/C OMPLE TE BLD COUNT W/DIF F basophils 0.9 % 0.0-2. 0 Not Available [facility] (Lab) [address] [place], [address], 08/20/2024 17:54:22 08/20/2008/20/2024 CBC/C OMPLE TE BLD COUNT W/DIF F immature granulocytes 0.6 % 0.00-0 .50 high Not Available [facility] (Lab) [address] [place], [address], 08/20/2024 17:54:22 08/20/20 24 08/20/2024 CBC/C OMPLE TE BLD COUNT W/DIF F neutrophils, absolute count 6.27 x10'3 /uL 1.5-8. 0 Not Available [facility] (Lab) [address] [place], [address], 08/20/2024 17:54:22 08/20/20 24 08/20/2024 CBC/C OMPLE TE BLD COUNT W/DIF F lymphocytes, absolute count 1.19 x10'3 /uL 1.07-3 .43 Not Available [facility] (Lab) [address] [place], [address], 08/20/2024 17:54:22 08/20/2008/20/2024 CBC/C OMPLE TE BLD COUNT W/DIF F monocytes, absolute count 1.07 x10'3 /uL 0.29-0 .99 high Not Available [facility] (Lab) [address] [place], [address], 08/20/2024 17:54:22 08/20/2008/20/2024 CBC/C OMPLE TE BLD COUNT W/DIF F eosinophils, absolute count 0.57 x10'3 /uL 0.02-0 .53 high Not Available [facility] (Lab) [address] [place], [address], 08/20/2024 17:54:22 08/20/2008/20/2024 CBC/C OMPLE TE BLD COUNT W/DIF F basophils, absolute count 0.08 x10'3 /uL 0.01-0 .08 Not Available [facility] (Lab) [address] [place], [address], 08/20/2024 17:54:22 08/20/2008/20/2024 CBC/C OMPLE TE BLD COUNT W/DIF F immature granulocytes ,absolute 0.06 x10'3 /uL 0.00-0 .05 high Not Available [facility] (Lab) [address] [place], [address], 08/20/2024 17:54:22 08/20/2008/20/2024 CBC/C OMPLE TE BLD COUNT W/DIF F nucleated red blood cells 0.0 % -0 Not Available [facility] (Lab) [address] [place], [address], 08/20/2024 17:54:22 08/20/20 24 08/20/2024 CBC/C OMPLE TE BLD COUNT W/DIF F NRBC# 0.00 x10'3 /uL Not Available [facility] (Lab) [address] [place], [address], 08/20/2024 17:54:22 08/20/20 24 08/20/2024 LIPID PANEL cholesterol 122 mg/dL 140-19 9 low NIH YURI NSUS RECOM MENDA TION FOR SUHAS STERO L: ADULT CHILD LOW RISK: <200 <170 BORDE RLINE : <200- 239 ----- HIGH RISK: >240 >200 Not Available [facility] (Lab) [address] [place], [address], 08/20/2024 18:42:48 08/20/2008/20/2024 LIPID PANEL triglyceride s 189 mg/dL 0-150 high NIH YURI NSUS REPOR T RECOM MENDA TION FOR TRIGL YCERI LIVAN: ADULT CHILD LOW RISK: <150 ----- BODER LINE: 150-1 99 ----- HIGH RISK: >200 ----- Not Available [facility] (Lab) [address] [place], [address], 08/20/2024 18:42:48 08/20/20 24 08/20/2024 LIPID PANEL HDL cholesterol 33 mg/dL 40- low Not Available [facility] (Lab) [address] [place], [address], 08/20/2024 18:42:48 08/20/20 24 08/20/2024 LIPID PANEL LDL cholesterol, calculated 51 mg/dL 0-130 NIH YURI NSUS REPOR T RECOM MENDA TIONS FOR LDL: ADULT CHILD LOW RISK <130 <110 (OPTI MAL LDL) <100 ----- BORDE RLINE : 130-1 59 ----- HIGH RISK: >160 >130 A TRIGL YCERI DE RESUL T >400 INVAL IDATE S THE CALCU LATIO N FOR LDL FRACT IONAT ION - THE LDL RESUL T WILL NOT BE REPOR STANLEY. Not Available [facility] (Lab) [address] [place], [address], 08/20/2024 18:42:48 08/20/2008/20/2024 COMPR EHENS FARAZ METAB OLIC PANEL sodium 137 mmol/ L 137-14 5 Not Available [facility] (Lab) [address] [place], [address], 08/20/2024 18:42:54 08/20/2008/20/2024 COMPR EHENS FARAZ METAB OLIC PANEL potassium 4.4 mmol/ L 3.5-5. 1 Not Available [facility] (Lab) [address] [place], [address], 08/20/2024 18:42:54 08/20/2008/20/2024 COMPR EHENS FARAZ METAB OLIC PANEL chloride 102 mmol/ L 98-107 Not Available [facility] (Lab) [address] [place], [address], 08/20/2024 18:42:54 08/20/2008/20/2024 COMPR EHENS FARAZ METAB OLIC PANEL carbon dioxide 25 mmol/ L 22-30 Not Available [facility] (Lab) [address] [place], [address], 08/20/2024 18:42:54 08/20/2008/20/2024 COMPR EHENS FARAZ METAB OLIC PANEL anion gap 14.4 mmol/ L 14-22 Not Available [facility] (Lab) [address] [place], [address], 08/20/2024 18:42:54 08/20/2008/20/2024 COMPR EHENS FARAZ METAB OLIC PANEL glucose 88 mg/dL 70-99 Not Available [facility] (Lab) [address] [place], [address], 08/20/2024 18:42:54 08/20/20 24 08/20/2024 COMPR EHENS FARAZ METAB OLIC PANEL BUN 32 mg/dL 8-19 high Not Available [facility] (Lab) [address] [place], [address], 08/20/2024 18:42:54 08/20/20 24 08/20/2024 COMPR EHENS FARAZ METAB OLIC PANEL creatinine 1.37 mg/dL 0.66-1 .25 high Not Available [facility] (Lab) [address] [place], [address], 08/20/2024 18:42:54 08/20/2008/20/2024 COMPR EHENS FARAZ METAB OLIC PANEL GFR 50 Refer ence Range : [place] ge GFR Healt hy Adult : >60 mL/mi n/1.7 3 m2 Chron ic Kidne y Disea se: 15-60 mL/mi n/1.7 3 m2 Kidne y Failu re: <15/m L/min /1.73 m2 www.n iddk. nih.g ov The MDRD study equat ion has not been valid ated in child elizabeth <18 years of age; pregn ant women ; the elder ly >85 years of age; or in some racia l or ethni c subgr oups, such as ar nics. Outsi de the valid ated jose eters , estim ated GFR is less accur ate, requi ring clini rubén judgm ent on a case- by-ca se basis . Clini rubén inter preta tion for other races and ages must be made by the clini krystal. The MDRD study equat ion has not been valid ated for the evalu ation of serum creat inine relat ed to nutri erin l statu s or medic ation usage . For perso ns <18 years of age, a pedia tric GFR calcu lator is avail able on the [facility] websi te: https ://mendoza w.richard siegely.o rg/pr ofess ional s/kdo qi/gf r_cal culat or Not Available [facility] (Lab) [address] [facility] [place], [address], 08/20/2024 18:42:54 08/20/2008/20/2024 COMPR EHENS FARAZ METAB OLIC PANEL alkaline phosphatase 106 U/L 38-126 Not Available [facility] (Lab) [address] [place], [address], 08/20/2024 18:42:54 08/20/2008/20/2024 COMPR EHENS FARAZ METAB OLIC PANEL alanine aminotransfe rase 24 U/L 0-50 Not Available [facility] (Lab) [address] [facility] [place], [address], 08/20/2024 18:42:54 08/20/2008/20/2024 COMPR EHENS FARAZ METAB OLIC PANEL aspartate aminotransfe rase 32 U/L 15-46 Not Available [facility] (Lab) [address] [facility] [place] [place], [address], 08/20/2024 18:42:54 08/20/2008/20/2024 COMPR EHENS FARAZ METAB OLIC PANEL bilirubin, total 0.70 mg/dL 0.20-1 .30 Not Available [facility] (Lab) [address] [place], [address], 08/20/2024 18:42:54 08/20/2008/20/2024 COMPR EHENS FARAZ METAB OLIC PANEL calcium 9.8 mg/dL 8.4-10 .2 Not Available [facility] (Lab) [address] [place], [address], 08/20/2024 18:42:54 08/20/2008/20/2024 COMPR EHENS FARAZ METAB OLIC PANEL total protein 6.2 g/dL 6.3-8. 2 low Not Available [facility] (Lab) [address] [place], [address], 08/20/2024 18:42:54 08/20/20 24 08/20/2024 COMPR EHENS FARAZ METAB OLIC PANEL albumin 3.8 g/dL 3.0-4. 4 Not Available [facility] (Lab) [address] [place], [address], 08/20/2024 18:42:54 08/20/2008/20/2024 COMPR EHENS FARAZ METAB OLIC PANEL globulin 2.4 g/dL 2.6-4. 2 low Not Available [facility] (Lab) [address] [place], [address], 08/20/2024 18:42:54 08/20/2008/20/2024 COMPR EHENS FARAZ METAB OLIC PANEL A/G ratio 1.6 ratio 1.0-2. 0 Not Available [facility] (Lab) [address] [place], [address], 08/20/2024 18:42:54 08/20/2008/20/2024 T4 FREE free T4 1.12 NG/dL 0.78-2 .19 Not Available [facility] (Lab) [address] [place], [address], 08/20/2024 18:44:39 08/20/2008/20/2024 TSH thyroid-stim ulating hormone 1.220 uIU/m L 0.465- 4.680 Not Available [facility] (Lab) [address] [place], [address], 08/20/2024 19:03:49 12/23/19 25 12/22/2024 CBC/C OMPLE TE BLD COUNT W/DIF F white blood cells 7.5 x10'3 /uL 4.2-10 .8 Not Available [facility] (Lab) [address] [place], [address], 12/22/2024 16:35:40 12/23/19 12/22/2024 CBC/C OMPLE TE BLD COUNT W/DIF F red blood cells 5.54 x10'6 /uL 4.10-5 .80 Not Available [facility] (Lab) [address] [place], [address], 12/22/2024 16:35:40 12/23/19 25 12/22/2024 CBC/C OMPLE TE BLD COUNT W/DIF F hemoglobin 16.5 g/dL 13.2-1 7.0 Not Available [facility] (Lab) [address] [place], [address], 12/22/2024 16:35:40 12/23/19 25 12/22/2024 CBC/C OMPLE TE BLD COUNT W/DIF F hematocrit 49.7 % 39.3-5 0.0 Not Available [facility] (Lab) [address] [place], [address], 12/22/2024 16:35:40 12/23/19 25 12/22/2024 CBC/C OMPLE TE BLD COUNT W/DIF F mean red cell volume 89.7 fL 80.0-9 7.0 Not Available [facility] (Lab) [address] [place], [address], 12/22/2024 16:35:40 12/23/19 25 12/22/2024 CBC/C OMPLE TE BLD COUNT W/DIF F mean red cell hemoglobin 29.8 pg 27.0-3 3.0 Not Available [facility] (Lab) [address] [place], [address], 12/22/2024 16:35:40 12/23/19 25 12/22/2024 CBC/C OMPLE TE BLD COUNT W/DIF F mean RBC HGB concentratio n 33.2 g/dL 31.0-3 6.0 Not Available [facility] (Lab) [address] [place], [address], 12/22/2024 16:35:40 12/23/19 25 12/22/2024 CBC/C OMPLE TE BLD COUNT W/DIF F red cell distribution width 14.5 % 11.8-1 5.5 Not Available [facility] (Lab) [address] [place], [address], 12/22/2024 16:35:40 12/23/19 25 12/22/2024 CBC/C OMPLE TE BLD COUNT W/DIF F platelets 248 x10'3 /uL 150-40 0 Not Available [facility] (Lab) [address] [place], [address], 12/22/2024 16:35:40 12/23/19 25 12/22/2024 CBC/C OMPLE TE BLD COUNT W/DIF F mean platelet volume 11.8 fL 9.0-12 .4 Not Available [facility] (Lab) [address] [place], [address], 12/22/2024 16:35:40 12/23/19 25 12/22/2024 CBC/C OMPLE TE BLD COUNT W/DIF F neutrophils 62.9 % 39.0-7 2.0 Not Available [facility] (Lab) [address] [place], [address], 12/22/2024 16:35:40 12/23/19 25 12/22/2024 CBC/C OMPLE TE BLD COUNT W/DIF F lymphocytes 17.5 % 16.0-4 7.0 Not Available [facility] (Lab) [address] [place], [address], 12/22/2024 16:35:40 12/23/19 25 12/22/2024 CBC/C OMPLE TE BLD COUNT W/DIF F monocytes 12.2 % 5.0-12 .0 high Not Available [facility] (Lab) [address] [place], [address], 12/22/2024 16:35:40 12/23/19 25 12/22/2024 CBC/C OMPLE TE BLD COUNT W/DIF F eosinophils 5.3 % 1.0-7. 0 Not Available [facility] (Lab) [address] [place], [address], 12/22/2024 16:35:40 12/23/19 25 12/22/2024 CBC/C OMPLE TE BLD COUNT W/DIF F basophils 1.3 % 0.0-2. 0 Not Available [facility] (Lab) [address] [place], [address], 12/22/2024 16:35:40 12/23/19 25 12/22/2024 CBC/C OMPLE TE BLD COUNT W/DIF F immature granulocytes 0.8 % 0.00-0 .50 high Not Available [facility] (Lab) [address] [place], [address], 12/22/2024 16:35:40 12/23/19 25 12/22/2024 CBC/C OMPLE TE BLD COUNT W/DIF F neutrophils, absolute count 4.70 x10'3 /uL 1.5-8. 0 Not Available [facility] (Lab) [address] [place], [address], 12/22/2024 16:35:40 12/23/19 25 12/22/2024 CBC/C OMPLE TE BLD COUNT W/DIF F lymphocytes, absolute count 1.31 x10'3 /uL 1.07-3 .43 Not Available [facility] (Lab) [address] [place], [address], 12/22/2024 16:35:40 12/23/19 25 12/22/2024 CBC/C OMPLE TE BLD COUNT W/DIF F monocytes, absolute count 0.91 x10'3 /uL 0.29-0 .99 Not Available [facility] (Lab) [address] [place], [address], 12/22/2024 16:35:40 12/23/19 25 12/22/2024 CBC/C OMPLE TE BLD COUNT W/DIF F eosinophils, absolute count 0.40 x10'3 /uL 0.02-0 .53 Not Available [facility] (Lab) [address] [place], [address], 12/22/2024 16:35:40 12/23/19 25 12/22/2024 CBC/C OMPLE TE BLD COUNT W/DIF F basophils, absolute count 0.10 x10'3 /uL 0.01-0 .08 high Not Available [facility] (Lab) [address] [place], [address], 12/22/2024 16:35:40 12/23/19 25 12/22/2024 CBC/C OMPLE TE BLD COUNT W/DIF F immature granulocytes ,absolute 0.06 x10'3 /uL 0.00-0 .05 high Not Available [facility] (Lab) [address] [place], [address], 12/22/2024 16:35:40 12/23/19 25 12/22/2024 CBC/C OMPLE TE BLD COUNT W/DIF F nucleated red blood cells 0.0 % -0 Not Available [facility] (Lab) [address] [place], [address], 12/22/2024 16:35:40 12/23/19 25 12/22/2024 CBC/C OMPLE TE BLD COUNT W/DIF F NRBC# 0.00 x10'3 /uL Not Available [facility] (Lab) [address] [place], [address], 12/22/2024 16:35:40 12/23/19 25 12/22/2024 COMPR EHENS FARAZ METAB OLIC PANEL sodium 139 mmol/ L 137-14 5 Not Available [facility] (Lab) [address] [place], [address], 12/22/2024 17:02:51 12/23/19 25 12/22/2024 COMPR EHENS FARAZ METAB OLIC PANEL potassium 4.6 mmol/ L 3.5-5. 1 Not Available [facility] (Lab) [address] [place], [address], 12/22/2024 17:02:51 12/23/19 25 12/22/2024 COMPR EHENS FARAZ METAB OLIC PANEL chloride 108 mmol/ L 98-107 high Not Available [facility] (Lab) [address] [place], [address], 12/22/2024 17:02:51 12/23/19 25 12/22/2024 COMPR EHENS FARAZ METAB OLIC PANEL carbon dioxide 27 mmol/ L 22-30 Not Available [facility] (Lab) [address] [place], [address], 12/22/2024 17:02:51 12/23/19 25 12/22/2024 COMPR EHENS FARAZ METAB OLIC PANEL anion gap 8.6 mmol/ L 14-22 low Not Available [facility] (Lab) [address] [place], [address], 12/22/2024 17:02:51 12/23/19 25 12/22/2024 COMPR EHENS FARAZ METAB OLIC PANEL glucose 91 mg/dL 70-99 Not Available [facility] (Lab) [address] [place], [address], 12/22/2024 17:02:51 12/23/19 25 12/22/2024 COMPR EHENS FARAZ METAB OLIC PANEL BUN 32 mg/dL 8-19 high Not Available [facility] (Lab) [address] [place], [address], 12/22/2024 17:02:51 12/23/19 25 12/22/2024 COMPR EHENS FARAZ METAB OLIC PANEL creatinine 1.26 mg/dL 0.66-1 .25 high Not Available [facility] (Lab) [address] [place], [address], 12/22/2024 17:02:51 12/23/19 25 12/22/2024 COMPR EHENS FARAZ METAB OLIC PANEL GFR 55 Refer ence Range : [place] ge GFR Healt hy Adult : >60 mL/mi n/1.7 3 m2 Chron ic Kidne y Disea se: 15-60 mL/mi n/1.7 3 m2 Kidne y Failu re: <15/m L/min /1.73 m2 www.n iddk. [facility].g ov The MDRD study equat ion has not been valid ated in child elizabeth <18 years of age; pregn ant women ; the elder ly >85 years of age; or in some racia l or ethni c subgr oups, such as Hisar nics. Outsi de the valid ated jose eters , estim ated GFR is less accur ate, requi ring clini rubén judgm ent on a case- by-ca se basis . Clini rubén inter preta tion for other races and ages must be made by the clini krystal. The MDRD study equat ion has not been valid ated for the evalu ation of serum creat inine relat ed to nutri erin l statu s or medic ation usage . For perso ns <18 years of age, a pedia tric GFR calcu lator is avail able on the F websi te: https ://ww w.kid twin.o rg/pr ofess ional s/kdo qi/gf r_cal culat or Not Available [facility] (Lab) [address] [place], [address], 12/22/2024 17:02:51 12/23/19 25 12/22/2024 COMPR EHENS FARAZ METAB OLIC PANEL alkaline phosphatase 101 U/L 38-126 Not Available [facility] (Lab) [address] [place], [address], 12/22/2024 17:02:51 12/23/19 25 12/22/2024 COMPR EHENS FARAZ METAB OLIC PANEL alanine aminotransfe rase 29 U/L 0-50 Not Available [facility] (Lab) [address] [place], [address], 12/22/2024 17:02:51 12/23/19 25 12/22/2024 COMPR EHENS FARAZ METAB OLIC PANEL aspartate aminotransfe rase 37 U/L 15-46 Not Available [facility] (Lab) [address] [place], [address], 12/22/2024 17:02:51 12/23/19 25 12/22/2024 COMPR EHENS FARAZ METAB OLIC PANEL bilirubin, total 0.90 mg/dL 0.20-1 .30 Not Available [facility] (Lab) [address] [place], [address], 12/22/2024 17:02:51 12/23/19 25 12/22/2024 COMPR EHENS FARAZ METAB OLIC PANEL calcium 9.6 mg/dL 8.4-10 .2 Not Available [facility] (Lab) [address] [place], [address], 12/22/2024 17:02:51 12/23/19 25 12/22/2024 COMPR EHENS FARAZ METAB OLIC PANEL total protein 6.4 g/dL 6.3-8. 2 Not Available [facility] (Lab) [address] [place], [address], 12/22/2024 17:02:51 12/23/19 25 12/22/2024 COMPR EHENS FARAZ METAB OLIC PANEL albumin 3.9 g/dL 3.0-4. 4 Not Available [facility] (Lab) [address] [place], [address], 12/22/2024 17:02:51 12/23/19 25 12/22/2024 COMPR EHENS FARAZ METAB OLIC PANEL globulin 2.5 g/dL 2.6-4. 2 low Not Available [facility] (Lab) [address] [place], [address], 12/22/2024 17:02:51 12/23/19 25 12/22/2024 COMPR EHENS FARAZ METAB OLIC PANEL A/G ratio 1.6 ratio 1.0-2. 0 Not Available [facility] (Lab) [address] [place], [address], 12/22/2024 17:02:51 12/23/19 25 12/22/2024 LIPID PANEL cholesterol 120 mg/dL 140-19 9 low NIH YURI NSUS RECOM MENDA TION FOR SUHAS STERO L: ADULT CHILD LOW RISK: <200 <170 BORDE RLINE : <200- 239 ----- HIGH RISK: >240 >200 Not Available [facility] (Lab) [address] [place], [address], 12/22/2024 17:02:56 12/23/19 25 12/22/2024 LIPID PANEL triglyceride s 130 mg/dL 0-150 NIH YURI NSUS REPOR T RECOM MENDA TION FOR TRIGL YCERI LIVAN: ADULT CHILD LOW RISK: <150 ----- BODER LINE: 150-1 99 ----- HIGH RISK: >200 ----- Not Available [facility] (Lab) [address] [place], [address], 12/22/2024 17:02:56 12/23/1912/22/2024 LIPID PANEL HDL cholesterol 35 mg/dL 40- low Not Available [facility] (Lab) [address] [place], [address], 12/22/2024 17:02:56 12/23/19 25 12/22/2024 LIPID PANEL LDL cholesterol, calculated 59 mg/dL 0-130 NIH YURI NSUS REPOR T RECOM MENDA TIONS FOR LDL: ADULT CHILD LOW RISK <130 <110 (OPTI MAL LDL) <100 ----- BORDE RLINE : 130-1 59 ----- HIGH RISK: >160 >130 A TRIGL YCERI DE RESUL T >400 INVAL IDATE S THE CALCU LATIO N FOR LDL FRACT IONAT ION - THE LDL RESUL T WILL NOT BE REPOR STANLEY. Not Available [facility] (Lab) [address] [place], [address], 12/22/2024 17:02:56 12/23/19 25 12/22/2024 T4 FREE free T4 1.30 NG/dL 0.78-2 .19 Not Available [facility] (Lab) [address] [place], [address], 12/22/2024 17:14:20 12/23/19 25 12/22/2024 TSH thyroid-stim ulating hormone 1.930 uIU/m L 0.465- 4.680 Not Available [facility] (Lab) [address] [place], [address], 12/22/2024 17:26:15 12/31/19 24 11/25/2010 polys omnog lucian, split night No observ ation record ed. [email or web address] Not Available 2023 16:49:40 01/23/20 24 01/23/2024 CT, abdom en, w/o contr ast No observ ation record ed. [email or web address] [facility] [address], [place], [address], 01/28/2024 12:37:52 02/10/20 24 02/07/2024 , echo ardio gram No observ ation record ed. [email or web address] [facility] [address], [place], [address], 02/10/2024 15:50:29 08/27/20 24 08/27/2024 CT, chest , w/o contr ast No observ ation record ed. [email or web address] [facility] [address] [place], [address], 08/27/2024 19:53:44 Result Notes None recorded. Problems Name Problem SNOMED Code Status Onset Date Resolution Date Notes Provider Name and Address Organization Details Recorded Time Anti-nucle ar factor detected 011479287 Active 2021 Not Available [facility] 3 05:04:24 Anxiety disorder 208888562 Active 2018 Not Available [facility] 3 05:04:24 Depressive disorder 44310939 Active Not Available [facility] 3 05:04:25 Malignant tumor of kidney 317255709 Active Not Available [facility] 3 05:04:25 Arthritis 3605646 Active 2018 Not Available [facility] 3 05:04:25 Hypertensi ve disorder 68289523 Completed 201806/13/2021 Not Available [facility] 3 08:10:52 Deep venous thrombosis of lower extremity 558159042 Active 2021 Not Available [facility] 3 05:04:25 Obesity 600973110 Active 2018 Not Available [facility] 3 05:04:25 Multiple nodules of lung 581801483 Active 2021 Not Available [facility] 3 05:04:25 Coronary arterioscl erosis 94574464 Active Not Available [facility] 3 05:04:25 Hyperlipid emia 08756666 Active Not Available [facility] 3 05:04:25 Essential hypertensi on 14366612 Active Not Available [facility] 3 05:04:25 Aortic valve regurgitat ion 73576581 Active 2018 Not Available [facility] 3 05:04:25 Obstructiv e sleep apnea syndrome 24580191 Active 2016 Not Available [facility] 3 05:04:25 Gout 51598777 Active 2018 Not Available [facility] 3 05:04:25 Chronic renal failure 69375747 Active 2021 Not Available [facility] 3 05:04:25 Notes:Medical History: Anxie ty/Depression Bilateral tinnitus Bruxism Eosinophils 240/uL IgE 84 IU/mL AAT PiMM 145 mg% Pulmonary nodules Speckled RAFY 1:80 Erythrocytosis Obesity with very severe OSAHS, AHI = 70, 11/25/09, on MILO CPAP c/o IVRC Severe AR Mild LAE Hypertension with LVH EF 60% Mixed hyperlipidemia CAD s/p [place] 2006 Left renal cyst CKD Iron deficiency Thoracolumbar DDD Lumbar scoliosis 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 Procedures Surgical History Date Name Laterality Status Provider Name and Address Organization Details Recorded Time 3 Medicare Wellness CPT Code, subsequent completed Thuy Rabago RN [place] - [facility] [employer] 06/07/2023 16:31:46 Imaging Results None recorded. Procedure Notes None recorded. Medical Equipment None Reported. Allergies Allergen ID Allergen Name Allergen Category Reaction Reaction Severity Criticality Documentation Date Start Date Code Code System Note Provider Name and Address Organization Details Recorded Time Zithromax medicatio n rash Not available Not available 12/19/2022 17682 4 RxNorm Not Available [facility] 3 08:16:41 36503 losartan medicatio n other Not available Not available 12/19/2022 00568 RxNorm Not Available [facility] 3 08:16:41 30920 Lodine medicatio n diarrhea Not available Not available 12/19/2022 12047 8 RxNorm Not Available [facility] 3 08:16:41 27149 lisinopri l medicatio n cough Not available Not available 12/19/2022 88219 RxNorm Not Available [facility] 3 08:16:42 49462 Coreg medicatio n irregular heart rate Not available Not available 12/19/2022 55886 1 RxNorm Not Available [facility] 3 08:16:42 27045 azithromy magdy medicatio n rash Not available Not available 12/19/2022 22715 RxNorm Not Available [facility] 3 08:16:42 Medications Name Sig Start Date Stop Date Status Note LastModified by Organization Details LastModified Time losartan 50 mg tablet TK 1 T PO QD active Not Available Not Available No t Available furosemide 40 mg tablet TAKE 1 TABLET BY MOUTH DAILY PRN for swelling active Not Available Not Available No t Available venlafaxine 75 mg tablet active Not Available Not Available Not Available trazodone 50 mg tablet Take 0.5 tablets every day by oral route at bedtime for 30 days. 12/26 completed Not Available Not Available Not Available atorvastati n 10 mg tablet TAKE 1/2 TABLET BY MOUTH EVERY DAY active Not Available Not Available No t Available metoprolol succinate ER 50 mg tablet,exte nded release 24 hr TK 1 T PO D 06/17 completed Not Available Not Available Not Available cephalexin 250 mg capsule TAKE 1 CAPSULE BY MOUTH EVERY 6 HOURS FOR 7 DAYS 12/21 completed Not Available Not Available Not Available Remeron 15 mg tablet Take 1 tablet every day by oral route at bedtime for 30 days. 10/10 completed Not Available Not Available Not Available clopidogrel 75 mg tablet TAKE 1 TABLET BY MOUTH DAILY 01/23 completed Not Available Not Available Not Available amlodipine 5 mg tablet TAKE 1 TABLET BY MOUTH TWICE DAILY active Not Available Not Available No t Available ciprofloxac in 500 mg tablet TAKE 1 TABLET BY MOUTH TWICE A DAY FOR 7 DAYS 02/14 completed Not Available Not Available Not Available aspirin 81 mg tablet,mili yed release Take 1 tablet every day by oral route. active Not Available Not Available No t Available Norvasc 2.5 mg tablet Take 1 tablet every day by oral route as needed. 12/30 completed Not Available Not Available Not Available oxycodone-a cetaminophe n 5 mg-325 mg tablet active Not Available Not Available No t Available prednisolon e acetate 1 % eye drops,suspe nsion PLACE 1 DROP IN RIGHT EYE 4 TIMES DAILY FOR 7 DAYS active Not Available Not Available No t Available amlodipine 10 mg tablet TK 1 T PO D 06/13 completed Not Available Not Available Not Available lutein 6 mg capsule Take 1 capsule twice a day by oral route. 12/21 completed Not Available Not Available Not Available cephalexin 500 mg capsule TAKE 1 CAPSULE BY MOUTH THREE TIMES DAILY 03/25 completed Not Available Not Available Not Available simvastatin 20 mg tablet active Not Available Not Available Not Available venlafaxine 37.5 mg tablet TAKE 1 TABLET BY MOUTH EVERY DAY WITH FOOD 12/17 completed Not Available Not Available Not Available triamcinolo ne acetonide 55 mcg nasal spray aerosol active Not Available Not Available Not Available magnesium 500 mg (as magnesium oxide) tablet Take 1 tablet every day by oral route. 2017 active Not Available Not Available Not Avai lable Glucosamine 500 mg tablet Take 1 tablet twice a day by oral route. 12/21 completed Not Available Not Available Not Available montelukast 10 mg tablet active Not Available Not Available Not Available metoprolol succinate ER 25 mg tablet,exte nded release 24 hr TAKE 1 TABLET BY MOUTH EVERY DAY 07/07 completed Not Available Not Available Not Available azelastine 137 mcg (0.1 %) nasal spray SPRAY 2 SPRAYS INTO EACH NOSTRIL TWICE A DAY 06/13 completed Not Available Not Available Not Available levofloxaci n 500 mg tablet active Not Available Not Available Not Available levofloxaci n 750 mg tablet Take 1 tablet every day by oral route as directed for 10 days. active Not Available Not Available No t Available colchicine 0.6 mg tablet Take 3 tablets every day by oral route as directed for 1 day. active Not Available Not Available No t Available Co Q-10 10 mg capsule Take 1 capsule every day by oral route. 07/17 completed Not Available Not Available Not Available Vigamox 0.5 % eye drops active Not Available Not Available Not Available Multivitami n 50 Plus tablet Take 1 tablet every day by oral route. 12/21 completed Not Available Not Available Not Available eszopiclone 2 mg tablet Take 1 tablet every day by oral route in the evening for 30 days. 06/17 completed Not Available Not Available Not Available Lunesta 1 mg tablet Take 1 tablet every day by oral route at bedtime for 30 days. 07/07 completed prn Not Available Not Available Not Available Nevanac 0.1 % eye drops,suspe nsion active Not Available Not Available Not Available Calcium 500 + D TWO DAILY 12/21 completed Not Available Not Available Not Available Durezol 0.05 % eye drops active Not Available Not Available Not Available Edarbi 40 mg tablet TAKE 1 TABLET BY MOUTH EVERY NIGHT active Not Available Not Available No t Available Os-Rubén 500 + D3 500 mg-15 mcg (600 unit) tablet Take 1 tablet twice a day by oral route. active Not Available Not Available No t Available Eliquis 5 mg tablet TAKE 1 TABLET BY MOUTH TWICE DAILY 09/30 completed Not Available Not Available Not Available Eliquis 2.5 mg tablet TAKE 1 TABLET BY MOUTH TWICE DAILY 2024 active Not Available Not Available Not Avai lable Fluvirin 8632-4980 45 mcg (15 mcg x 3)/0.5 mL intramuscul ar suspension INJECT 0.5 ML INTRAMUSC ULARLY DIRECTED. active Not Available Not Available No t Available Jardiance 10 mg tablet TAKE 1 TABLET BY MOUTH DAILY 09/30 completed Not Available Not Available Not Available Fluad 2016- 65yr up(PF)45 mcg(15 mcgx3)/0.5 mL intramuscul ar syringe ADM 0.5ML IM UTD 06/17 completed Not Available Not Available Not Available Fluzone High-Dose (PF) 180 mcg/0.5 mL intramuscul ar syringe TO BE ADMINISTE RED BY PHARMACIS T FOR IMMUNIZAT ION 07/02 completed Not Available Not Available Not Available Fluzone High-Dose (PF) 180 mcg/0.5 mL intramuscul ar syringe ADM 0.5ML IM UTD 02/14 completed Not Available Not Available Not Available Vitals Date Recorded Body height Body mass index (BMI) Body weight Heart rate Body temperature Oxygen saturation Oxygen saturation in Arterial blood by Pulse oximetry Systolic And Diastolic Provider Name and Address Organization Details Last Updated DateTime 5 165.1 cm 40.3 kg/m2 242640. 35 g 83 /min 97 [degF] 95 % 95 % 134/80 mm[Hg] Belen CALLOWAY - AHAna [place] [employer] [facility] 5 16:15:13 Date Recorded Heart rate Respiratory rate Provider N arlen and Address Organization Details Last Updated DateTime 12/31/2023 84 /min 15 /min Felix Rodríguez MD [address], [place], [address], [facility] [employer] [facility] 12/31/2023 13:33:21 Date Recorded Body height Body mass index (BMI) Body weight Body temperature Heart rate Oxygen saturation Oxygen saturation in Arterial blood by Pulse oximetry Systolic And Diastolic Provider Name and Address Organization Details Last Updated DateTime 4 165.1 cm 43.5 kg/m2 665152. 33 g 98.4 [degF] 84 /min 96 % 96 % 138/82 mm[Hg] Rosalina Gracia MA [facility] [employer] [facility] 4 12:34:30 Date Recorded Body height Body mass index (BMI) Body weight Heart rate Oxygen saturation Oxygen saturation in Arterial blood by Pulse oximetry Systolic And Diastolic Provider Name and Address Organization Details Last Updated DateTime 4 165.1 cm 40.3 kg/m2 141588. 35 g 78 /min 98 % 98 % 132/76 mm[Hg] Carloyn Lou CMA [facility] [employer] 4 16:04:40 Date Recorded Body height Body mass index (BMI) Body weight Heart rate Body temperature Oxygen saturation Oxygen saturation in Arterial blood by Pulse oximetry Systolic And Diastolic Provider Name and Address Organization Details Last Updated DateTime 4 165.1 cm 39.3 kg/m2 264726. 8 g 80 /min 97 [degF] 96 % 96 % 120/70 mm[Hg] LAMONT Morales [facility] [employer] [facility] 4 16:10:08 Date Recorded Body height Body mass index (BMI) Body weight Heart rate Respiratory rate Provider Name and Address Organization Details Last Updated DateTime 09/30/2024 165.1 cm 39.4 kg/m2 541530.3 9 g 79 /min 15 /min Felix Rodríguez MD [address], [place], [address] , [facility] [employer] [facility] 4 15:59:10 Date Recorded Body temperature Heart rate Oxygen saturation Oxygen saturation in Arterial blood by Pulse oximetry Systolic And Diastolic Provider Name and Address Organization Details Last Updated DateTime 4 98.4 [degF] 79 /min 95 % 95 % 132/76 mm[Hg] Rosalina Gracia MA [facility] [email or web address] [facility] 4 15:48:04 Social History Question Answer Notes LastModified by Organization Details LastModified Time Tobacco Smoking Status Former Smoker did for a little while as a teen but nothing const Rosalina Gracia MA null, [facility] [email or web address] [facility] 12/31/2023 12:37:31 Do You Have An Advance Directive? Yes [id number] Information not available 12/19/2022 Are You Blind Or Do You Have Difficulty Seeing? No [email or web address] Information not available 06/07/2023 What Is Your Level Of Caffeine Consumption? Occasional [id number] Information not available 12/19/2022 In The 14 Days Before Symptom Onset, Have You Had Close Contact With A Laboratory-confi rmed COVID-19 While That Case Was Ill? No [email or web address] Information not available 06/07/2023 In The 14 Days Before Symptom Onset, Have You Had Close Contact With A Person Who Is Under Investigation For COVID-19 While That Person Was Ill? No Information not available 06/07/2023 Are You Deaf Or Do You Have Serious Difficulty Hearing? No [email or web address] Information not available 06/07/2023 What Type Of Diet Are You Following? REGULAR [id number] Information not available 12/19/2022 Do You Have An Electrostatic Air Filter? No Information not available 12/31/2023 What Is The Fluoride Status Of Your Home? Unknown [email or web address] Information not available 06/07/2023 When Did You Quit Smoking? 16+yearssincelastc igarette Information not available 12/31/2023 Do You Have A Humidifier? No Information not available 12/31/2023 Do You Use Insect Repellent Routinely? No [email or web address] Information not available 06/07/2023 [facility] [email or web address] Information not available 06/07/2023 Do You Have A Medical Power Of Window Glazier? Yes [email or web address] Information not available 06/07/2023 Do You Have Moisture Problems In Your Home? No Information not available 12/31/2023 What Was The Date Of Your Most Recent Tobacco Screening? 09/30/2024 Information not available 09/30/2024 Do You Have Any Pets? No Information not available 06/07/2023 What Is Your Relationship Status? [id number] Information not available 12/19/2022 Do You Use Your Seat Belt Or Car Seat Routinely? Yes [email or web address] Information not available 06/07/2023 Do You Have Smoke And Carbon Monoxide Detectors In Your Home? Yes [email or web address] Information not available 06/07/2023 Are You Passively Exposed To Smoke? No [email or web address] Information not available 06/07/2023 Are There Any Smokers In Your House? No [email or web address] Information not available 06/07/2023 Do You Use Sunscreen Routinely? No [email or web address] Information not available 06/07/2023 Have You Recently Traveled Abroad? No [email or web address] Information not available 06/07/2023 Do You Have Difficulty Walking Or Climbing Stairs? Yes [email or web address] Information not available 06/07/2023 Sex: Male Functional Status Question Answer Note LastModified by Organizat ion Details LastModified Time Do you use any illicit or recreational drugs? No [email or web address] Information not available 06/07/2023 What is your level of alcohol consumption? None [id number] Information not available 12/19/2022 Do you or have you ever used smokeless tobacco? Never used smokeless tobacco [id number] Information not available 12/19/2022 Are you currently employed? No Information not available 12/31/2023 Have you been exposed to chemicals or toxins? Not that aware of Information not available 12/31/2023 Do you have transportation difficulties? No [email or web address] Information not available 06/07/2023 Are you able to walk? YESASSIST [email or web address] Information not available 06/07/2023 Do you have difficulty doing errands alone? No [email or web address] Information not available 06/07/2023 Are you able to care for yourself? Yes [email or web address] Information n ot available 06/07/2023 Do you have difficulty dressing or bathing? No [email or web address] Information not available 06/07/2023 Do you or have you ever used e-cigarettes or vape? Never used electronic cigarettes [email or web address] Information not available 06/07/2023 What is your exercise level? None [id number] Information not available 12/19/2022 Mental Status Question Answer Note LastModified by Organizat ion Details LastModified Time Do you feel stressed (tense, restless, nervous, or anxious, or unable to sleep at night)? [id number] Information not available 12/31/2023 Do you have difficulty concentrating, remembering or making decisions? No [email or web address] Information no t available 06/07/2023 Family History Relationship Description Onset Age of this Age Resolved Age Notes LastModified by Organization Details LastModified Time Mother Heart disease [email or web address] Not available 2023 12:36:04 Father Heart disease [email or web address] Not available 2023 12:36:14 Medical History Condition Response NERVE DISEASE N BLINDNESS N RHEUMATIC FEVER N KIDNEY STONES N BLADDER PROBLEMS N MRSA N OTHER # 1 N POLIO N LUNG DISEASE/DISORDER N HISTORY OF DRUG ABUSE N COPD N RADIATION / CHEMOTHERAPY N Other # 2 N BLOOD DISEASES N EAR OR HEARING PROBLEMS N MUMPS N SHINGLES N BOWEL PROBLEMS N DEPRESSION (INCLUDING POST ) Y STROKE/TIA N ULCERS N BENIGN PROSTATIC HYPERPLASIA N MEASLES N HYPOTENSION N MYOCARDIAL INFARCTION N OBESITY N GERD/NAUSEA N ANEURYSM N URINARY/BLADDER/KIDNEY PROBLEMS N CORONARY ARTERY DISEASE (CAD) N ADDICTION CONCERNS N ENDOMETRIOSIS N Impotence N USE OF BLOOD THINNERS N SKIN PROBLEMS N GASTROINTESTINAL DISORDER N PERIPHERAL VASCULAR DISEASE N MUSCLE,JOINT OR BONE PROBLEMS N GASTROINTESTINAL BLEEDING N BLOOD CLOTS N ASTHMA N CATARACTS N ERECTILE DYSFUNCTION N VARICOSITIES N GI PROBLEMS N Low Testosterone N INFERTILITY N AIDS/HIV N CHEMOTHERAPY / RADIATION N LIVER DISEASE N MALE HYPOGONADISM N HYPERTENSION Y Deficiency N TOURETTE'S N ANXIETY DISORDER N BLOOD TRANSFUSION N ANEMIA/BLOOD DISORDER N CHRONIC EAR INFECTIONS N BRONCHITIS N TUBERCULOSIS N GLAUCOMA N FOOT PROBLEM N DIVERTICULITIS N CHICKENPOX N SLEEP APNEA N INFECTIOUS DISEASE N HEART ARRHYTHMIA N PROSTATE N INSOMNIA N HIGH CHOLESTEROL / HYPERLIPIDEMIA Y HYPERTHYROIDISM N EYE PROBLEMS N EDEMA N CHRONIC PAIN SYNDROME N HYPOTHYROIDISM N CAROTID BLOCKAGE N CONSTIPATION N BACK / NECK PROBLEMS N HAVE YOU BEEN HOSPITALIZED OR SEEN IN [facility] IN THE PAST YEAR ? N ATHEROSCLEROSIS N BREAST PROBLEMS N DIALYSIS N ECZEMA N OSTEOPOROSIS N ARTHRITIS N NO SIGNIFICANT PAST MEDICAL HISTORY N APPENDICITIS N DIABETES, TYPE N BAD TEETH N ENT N HEARTBURN / REFLUX N AUTISM SPECTRUM DISORDER (ASD) N HEPATITIS / LIVER DISEASE N GOUT N SLEEP DISORDER N ALZHEIMER'S DISEASE N Brain Problems N HERPES N DEMENTIA N HEADACHES/MIGRAINES N SEIZURES/EPILEPSY N VASCULAR DISEASE N PACEMAKER N Blood Disorder N DIZZINESS N HEART DISEASE/HEART PROBLEMS N KIDNEY DISEASE N MULTIPLE SCLEROSIS N CARDIAC ARRHYTHMIA N CANCER: SPECIFY Y ATRIAL FIBRILLATION N Gall Stones N PULMONARY EMBOLISM N AUTOIMMUNE DISEASE N Immunizations Vaccine Type Date Status Note Provider Nam e and Address Organization Details Recorded Time Influenza, split virus, trivalent, PF 3 completed Not Available [facility] 09/11/2023 05:04:27 influenza, unspecified formulation 8 completed Not Available [facility] 09/11/2023 05:04:26 influenza, unspecified formulation 2 completed Not Available [facility] 09/11/2023 05:04:26 SARS-COV-2 (COVID-19) vaccine, UNSPECIFIED 2 completed Not Available [facility] 09/11/2023 05:04:26 Influenza, split virus, quadrivalent, preservative 1 completed Not Available [facility] 09/11/2023 05:04:26 SARS-COV-2 (COVID-19) vaccine, UNSPECIFIED 1 completed Not Available [facility] 09/11/2023 05:04:26 COVID-19 Non-US Vaccine, Product Unknown 1 completed Not Available [facility] 09/11/2023 05:04:26 COVID-19 Non-US Vaccine, Product Unknown 1 completed Not Available [facility] 09/11/2023 05:04:26 influenza, unspecified formulation 7 completed Not Available [facility] 09/11/2023 05:04:26 Influenza, split virus, trivalent, preservative 4 completed Not Available [facility] 09/11/2023 05:04:27 Influenza, high-dose, trivalent, PF 6 completed Not Available [facility] 09/11/2023 05:04:26 pneumococcal polysaccharide PPV23 5 completed Not Available [facility] 09/11/2023 05:04:26 Pneumococcal conjugate PCV 13 5 completed Not Available [facility] 09/11/2023 05:04:26 Past Encounters Encounter ID Performer Location Encounter Start Date Encounter Closed Date Diagnosis/Indication Diagnosis SNOMED-CT Code Diagnosis ICD10 Code Diagnosis Note [id number] Jorge Luis Morales MD [facility] [place] [address] [place] [address] y , [place] [address] 02/14/2021 00:00:00 02/14/2021 16:16:36 [id number] Jorge Luis Morales MD [facility] [place] [address] [place] [address] y , [place] [address] 06/13/2021 00:00:00 06/13/2021 14:52:07 [id number] [facility] [place] [address] [place] [address] 07/14/2021 00:00:00 07/17/2021 09:22:44 [id number] [facility] [place] [address] [place] [address] 08/07/2021 00:00:00 08/07/2021 16:45:49 [id number] Jorge Luis Morales MD [facility] [place] [address] [place] [address] y , [place] [address] 10/10/2021 00:00:00 10/10/2021 15:06:13 [id number] Jorge Luis Morales MD [facility] [place] [address] [place] [address] y , [place] [address] 12/19/2021 00:00:00 12/19/2021 14:29:42 [id number] Jorge Luis Morales MD [facility] [place] [address] [place] [address] y , [place] [address] 12/26/2021 00:00:00 12/26/2021 14:35:25 [id number] Jorge Luis Morales MD [facility] [place] [address] [place] [address] y , [place] [address] 01/23/2022 00:00:00 01/23/2022 15:08:10 [id number] SALVADOR Mcnamara [facility] [place] [address] [place] [address] 02/05/2022 00:00:00 02/05/2022 15:52:34 [id number] MD ODES[facility] [place] [address] [place] [address] y , [place] [address] 02/16/2022 00:00:00 02/16/2022 14:36:36 [id number] MD SHERRI [facility] [place] [address] [place] [address] y , [place] [address] 03/02/2022 00:00:00 03/02/2022 14:54:22 [id number] MD ODESSA [facility]tonAl[facility] [place] [address] [place] [address] y , [place] [address] 03/27/2022 00:00:00 03/27/2022 16:02:36 [id number] SALVADOR Mcnamara [facility] [place] [address] [place] [address] 05/07/2022 00:00:00 05/07/2022 16:17:28 [id number] MD ODESSA [facility] [place] [address] [place] [address] y , [place] [address] 05/29/2022 00:00:00 05/29/2022 15:09:38 [id number] SALVADOR Mcnamara [facility] [place] [address] [place] [address] 07/17/2022 00:00:00 07/17/2022 16:41:44 [id number] SALVADOR Mcnamara [facility] [place] [address] [place] [address] 09/24/2022 00:00:00 09/24/2022 16:20:06 [id number] Jorge Luis Morales MD [facility] Internal [facility] Eran gonz[facility] [address] [facility] [address] [address] [address] 09/28/2022 00:00:00 09/28/2022 15:23:19 [id number] Jorge Luis Morales MD [facility] Internal [facility] Eran gonzales [address] [facility] [place] [address] [address] 01/25/2023 14:47:45 01/25/2023 15:18:47 Chronic renal failure 29881014 N18.9 Coronary arteriosclerosis 73215115 I25.10 Deep venou s thrombosis of lower extremity 977965568 I82.409 Essential hypertension 18830758 I10 Depressive disorder 3548 9007 F32.A Morbid obesity 948258794 E66.01 Hyperlipidemia 55219551 E78.5 [id number] Alexandra Iverson, [facility] [place] [address] [place] [address] 03/25/2023 14:53:15 03/25/2023 15:57:49 Obstructive sleep apnea syndrome 20764973 G47.33 Split night study done in 2009 with AHI of 37.9 on right side, 69 supine, and 115 on left side.Remai ns on CPAP of 13 cm water pressure.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 If unable to fall asleep after 30 minutes, patient should get out of bed but should not engage in any activity that requires sustained mental alertness. -Maintain a regular bedtime and wake-up time even on weekends or days off of work.-Avoi d excessive naps during the daytime. If a nap is necessary, limit it to no more than 30minutes. -Minimize environmen cb noise, bright lights, and extremes in bedroom temperatur e.-Avoid alcohol, caffeinate d beverages, and nicotine products for at least 6 hours prior to bedtime.-A void strenuous exercise and large meals for at least 4 hours prior to bedtime.Di scussed reportable signs and symptoms.D ownload at next OV and PRN for concerns Multiple n odules of lung 763585677 R91.8 HRCT completed 08/01/21 with unchanged nodulesPer ipheral opacities to bilateral bases.SUZANNE negative.H istoplasma and blastomyce s negativeHP panel negativeQu antiferon GOLD negativeLe gionella urine negativeCT chest 02/2022 with unchanged nodulesHis tory of kidney carcinoma with nephrectom yHe repeated CT chest ll nodules/sc arring continue to measure 3mm or less and are stableRepe at CT chest yearly and PRN with changes, due 08/2023Ord er entered today Dyspnea on exertion 6084 5006 R06.09 Increased with triggersHe declines PFT at this timeLast PFT 2020 WNLCheck labs Body mass index 40+ - severely obese 311841485 Z68.41 Discussed weight management .Healthy well balanced meals.Incr ease exercise, ideally 30 minutes most days of the week. [id number] Jorge Luis Morales MD [facility] Internal Med [place] [place] [address] [place] [place] [address] 06/07/2023 16:14:18 06/07/2023 16:49:41 Adult health examination 814389683 Z00.00 Screening for disorder 169713415 Z13.9 Coronary arteriosclerosis 21017864 I25.10 Essential hypertension 00379892 I10 Hyperlipidemia 12828148 E78.5 Chronic renal failure 90 772326 N18.9 Body mass index 40+ - severely obese 100002114 Z68.41 [id number] Jorge Luis Morales MD 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 [address] [place] [address] [place] [address] 04/16/2024 15:52:40 04/16/2024 16:20:20 Coronary arteriosclerosis 60721320 I25.10 Essential hypertension 64133131 I10 Hyperlipidemia 83136429 E78.5 Chronic renal failure 90 490918 N18.9 Obese class III 20551488 5 E66.01 [id number] Jorge Luis Morales MD [facility] Internal [facility] [address] [place] [address] y , [address] [place] [address] 08/20/2024 15:59:50 08/20/2024 16:31:36 Coronary arteriosclerosis 75120912 I25.10 Essential hypertension 95974607 I10 Hyperlipidemia 94352243 E78.5 Gout 61185280 M10.9 Deep venou s thrombosis of lower extremity 532230879 I82.409 Obesity 502230111 E66.9 [id number] Felix Rodríguez MD [facility]_[address] [address] 09/30/2024 14:47:29 09/30/2024 16:33:58 Multiple nodules of lung 360908746 R91.8 Obstructiv e sleep apnea syndrome 37883307 G47.33 [id number] Jorge Luis Morales MD [facility] Primary Care [facility] [address] [facility] [address] [place] [address] 12/17/2024 15:55:42 12/17/2024 16:49:20 Coronary arteriosclerosis 24723959 I25.10 Essential hypertension 88074412 I10 Hyperlipidemia 43874549 E78.5 Malignant tumor of kidney 302776382 C64.9 Gout 53392563 M10.9 Obesity 189843234 E66.9 Health Concerns Section Related Observation LastModified by Organization Detai ls LastModified Time None Recorded Concern Status LastModified by Organization Details LastModified Time None Recorded Advance Directives Directive Y: Payers Encounter Date Sequence Insurance Name Policy Number Policy Moss Covered Member ID Moss Member ID Guarantor Name 12/31/2023 1 [facility] (MEDICARE REPLACEMENT/A DVANTAGE - PPO) [id number] Reji Cole Rehan [id number] Reji Cole Rehan 04/16/2024 1 [facility] (MEDICARE REPLACEMENT/A DVANTAGE - PPO) [id number] Reji Cole Rehan [id number] Reji Cole Rehan 08/20/2024 1 [facility] (MEDICARE REPLACEMENT/A DVANTAGE - PPO) [id number] Reji Cole Rehan [id number] Reji Joneser 09/30/2024 1 [facility] (MEDICARE REPLACEMENT/A DVANTAGE - PPO) [id number] Reji Cole Rehan [id number] Reji Cole Rehan 12/17/2024 1 [facility] (MEDICARE REPLACEMENT/A DVANTAGE - PPO) [id number] Reji Cole Rehan [id number] Reji Cole Rehan Notes Date Note Type Note Provider Name and Address Organization Details Recorded Time 12/31/2023 text/html Primary care/Ref erring provider: Jorge Luis Morales MD At home since 03/25/23, the patient uses a MILO G3 unit with heated humidification. The patient does not need the ramp to start low and go up slowly on the pressure anymore. There is some xerostomia in a.m. There is no hose/mask condensation with water. The patient wears a [employer] large full face mask without chin strap. There is no claustrophobia, no nostril/nose bridge irritation, no facial rash, no facial numbness, no nosebleeding. The patient feels more refreshed upon waking and daytime alertness is improved. Energy levels are sustained until mid afternoon, around 4 pm. At home, the patient sleeps from 3 am to 11 am and wakes up without an alarm. Snoring: heavy, since 1980s. Snorting: yes Choking: no Coughing: yes Gasping: no Gagging: no Sighing: no Witnessed apnea: yes Twitching or jerking of leg(s), arm(s), body, head: no Teeth grinding: yes Teeth clenching: yes Sleeptalking: yes Sleepwalking: no Sleep crying: no Bedwetting: no Tongue/lip/gum/cheek biting: yes Sleeping with open mouth: yes Sleep paralysis: no Hypnagogic hallucinations: no Hypnopompic hallucinations: no Vivid dreams: yes Difficulty with sleep onset: yes Difficulty with sleep maintenance: yes Sleep interruptions: nocturia x 2 Patient wakes up with: fatigue, xerostomia, cognitive impairment, mobility impairment Daytime cataplexy: no Morning hypersomnolence: yes Afternoon hypersomnolence: yes Caffeine sources in diet: coffee 1 cup per day, tea 1 bottle per week, soda 6 oz per day, chocolate 1 candy bar per month Associated medical and psychiatric conditions: Congestive heart failure: no Coronary artery disease: yes Myocardial infarction: yes Hypertension: yes Stroke: no Bronchial asthma: no Chronic obstructive pulmonary disease: no Depression: yes Bipolar disorder: no Anxiety: yes Panic disorder: no Posttraumatic stress disorder: no Attention deficit and hyperactivity disorder: no Obsessive Compulsive disorder: no Schizophrenia: no Schizoaffective disorder: no Personality disorder: no Chronic analgesic use: no Chronic sedative/hypnotic use: no EPWORTH SLEEPINESS SCALE (ESS) CHANCE OF DOZING SCORE 0 = would never doze 1 = slight chance of dozing 2 = moderate chance of dozing 3 = high chance of dozing SITUATION AND CHANCE OF DOZING Sitting and reading - 2 Watching television - 2 Sitting inactive in a public place (e.g. a theater or meeting) - 0 As a passenger in a car for an hour without a break - 1 Lying down to rest in the afternoon when circumstances permit - 3 Sitting and talking to someone - 0 Sitting quietly after lunch without alcohol - 3 In a car, while stopped for a few minutes in the traffic - 0 TOTAL SCORE 11 Subjectively, patient has a moderate chance of dozing. Felix Rodríguez MD [address] [place] [address], [id number], [place] - [facility] 12/31/2023 13:33:55 04/16/2024 text/html Patient Name: Rivera Monroe Of Service: March ( 04.16.2024 ): 1940 Age: 83 There has been approximately a 21 lb weight loss since 10/18/2023. This represents approximately a 8.0% change in weight. Weight change attributable to lifestyle changes. Vital Signs:Blood Pressure: Sitting Rt. Arm 132/76Pulse: Sitting 78 /min and RegularRespiratory Rate: 18Height 65 in or 1.7 mWeight 242 lb or 109.8 kgBMI 40.3Pulse Oximetry: 98 % at rest on no oxygen Chief Complaint: Addressed in HPI Problems or conditions discussed in the HPI were the only ones reviewed during the encounter.Only social and family history addressed in the HPI were reviewed during this encounter. Attendant(s): NoneConstitutional and Systemic Symptoms:none Medication Reconciliation: from medication list. [id number]: CT scan of abdomen and pelvis revealed several subcentimeter pulmonary nodules in the right lung base. Most likely benign. No evidence of any recurrent metastatic disease in the abdomen otherwise noted. 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 Estimated ejection fraction 65%. There severe enlargement of left atrium. There is nonspecific thickening of the mitral valve with trace physiological mitral valve regurgitation there is aortic sclerosis and aortic valve regurgitation moderate tricuspid valve is normal in appearance there is trace physiological regurgitation. History of Present Illness #1. Coronary Artery Disease: There has been no change in frequency - duration - intensity in frequency, duration or intensity of chest pain. Other Complaints: none The frequency of anginal attacks is none at all. Additional Symptoms: none Therapy reviewed regarding cardiovascular management includes Aspirin, Eliquis, Lasix, Lipitor and Norvasc #2. Essential Hypertension: Stage: Stage I Interval Neurological Complaints no headaches, dizziness, weakness, visual changes, ataxia, aphasia and apraxia. No shortness of breath, orthopnea or cardiovascular symptoms. No other symptoms related to end organ damage. Pressure has been under excellent control. Currently normal. No other end organ symptoms or findings. Therapy reviewed regarding management of hypertension and includes salt restriction and Norvasc. #3. Type II Hypercholesterolaemia: Currently taking medication and tolerating well. No interval complaints of any muscle pain or arthralgia. No significant liver changes with medications. Last lipid panel: fair control. Therapy reviewed regarding treatment of cholesterol management and include diet and Lipitor. #4. History of chronic renal failure currently doing well. Currently is followed by a clay thrower. Stage: CKD-3a. Albumin Stage: A1. There has been no change in urine output or color. No fever or chills. #5. Hx of obesity. Currently Class 3 Obesity [place] > 40. Has tried numerous dietary support and supplements with no benefit. Instructed on the health consequences of the obese status particularly cancer - diabetes and heart disease. Discussed other modalities of weight loss no. Potential candidate for bariatric surgery: No. Wishes to be evaluated by Dietary: No and was offered to be evaluated and instructed by electroplating worker on weight loss diet. Active Medication ListEliquis 2.5 MG TABLET, FILM COATED One Twice DailyGlucosamine Chondrotin Sulfate 500 MG One Twice A DayNorvasc 5 MG TABLET One Twice DailyAspirin 81 MG Once DailyLipitor 10 MG (TABLET - ORAL) Half Tablet DailyLasix 40 MG (TABLET - ORAL) One Daily As NeededOs-rubén D 500 MG Two DailyMagnesium Oxide 500 MG Once DailyMultivitamin DailyLutein 6 MG One Twice A Day Adverse Drug Reactions ReviewedCoreg Irregular Heart BeatLodine DiarrheaZmax RashZithromax RashLisinopril CoughLosartan Potassium Unknown Vaccination and Yqgbsuucnsee0540-64 Upzshambg2704-85 Covid Booster Cbhllm9317-98 Covid Cpnwie4324-36 Nejvhtids1844-00 Prevnar 13 Gc Surgical Xpnkfpo0464-98 Left Inguinal Bkiqxh5683-96 Bilateral Mqzgwdcxo1855-41 Umbilical and Ventral Klycpa8898-81 Rt. Tyzolfmjnli9409-52 Coronary Tbadw2910-94 Umbilical Hernia Preventative Nyvikmq8110/22/2023 ALBUMIN 4.0 G/DL10/22/2023 PSA 2.72 NG/ML06/30/2021 COLOGUARD / CT THORAX Social HistoryDoes not smokeDrinks sociallyWork at [employer] Family HistoryMother 64 from CAD, [place] and DMFather 37 from CardiomyopathyOne brother of Mad-Cow diseaseOne sister living DM TEST RESULT RANGE UNITSLIPID PANEL Date: 4CHOLESTEROL 127 140-199 MG/DLTRIGLYCERIDES 192 0-150 MG/DLHDL CHOLESTEROL 29 40- MG/DLLDL CHOLESTEROL, CALCULATED 60 0-130 MG/DLPSA, TOTAL Date: 4PSA, TOTAL 2.72 0.00-4.00 NG/MLCOMPREHENSIVE METABOLIC PANEL Date: 10/22/2023SODIUM 139 137-145 MMOL/LPOTASSIUM 4.4 3.5-5.1 MMOL/LBUN 28 8-19 MG/DLCREATININE 1.32 0.66-1.25 MG/DLGFR 52BILIRUBIN, TOTAL 0.80 0.20-1.30 MG/DLCALCIUM 9.6 8.4-10.2 MG/DLTOTAL PROTEIN 6.8 6.3-8.2 G/DLALKALINE PHOSPHATASE 77 38-126 U/LALANINE AMINOTRANSFERASE 27 0-50 U/LASPARTATE AMINOTRANSFERASE 38 15-46 U/L Jorge Luis Morales MD [address] [facility], [facility] [address], [address], [facility], [facility] 04/16/2024 16:16:20 08/20/2024 text/html Patient Name: Rivera VanLokite Of Service: July ( 08.20.2024 ): 1940 Age: 83 There has been approximately a 6 lb weight loss since 04/16/2024. This represents approximately a 2.5% change in weight. Weight change attributable to lifestyle changes. Vital Signs:Blood Pressure: Sitting Rt. Arm 120/70Pulse: Sitting 80 /min and RegularRespiratory Rate: 16Height 65 in or 1.7 mWeight 236 lb or 107.0 kgBMI 39.3Temperature: 97 F or 36.1 CPulse Oximetry: 96 % at rest on no oxygen Chief Complaint: Addressed in HPI Problems or conditions discussed in the HPI were the only ones reviewed during the encounter.Only social and family history addressed in the HPI were reviewed during this encounter. Attendant(s): NoneConstitutional and Systemic Symptoms:none Medication Reconciliation: from medication list. [id number]: CT scan of abdomen and pelvis revealed several subcentimeter pulmonary nodules in the right lung base. Most likely benign. No evidence of any recurrent metastatic disease in the abdomen otherwise noted. 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 Estimated ejection fraction 65%. There severe enlargement of left atrium. There is nonspecific thickening of the mitral valve with trace physiological mitral valve regurgitation there is aortic sclerosis and aortic valve regurgitation moderate tricuspid valve is normal in appearance there is trace physiological regurgitation. History of Present Illness #1. Coronary Artery Disease: There has been no change in frequency - duration - intensity in frequency, duration or intensity of chest pain. Other Complaints: none The frequency of anginal attacks is none at all. Additional Symptoms: none Therapy reviewed regarding cardiovascular management includes Aspirin, Edarbi, Eliquis, Lasix, Lipitor and Norvasc #2. Essential Hypertension: Stage: Stage I Interval Neurological Complaints no headaches, dizziness, weakness, visual changes, ataxia, aphasia and apraxia. No shortness of breath, orthopnea or cardiovascular symptoms. No other symptoms related to end organ damage. Pressure has been under excellent control. Currently normal. No other end organ symptoms or findings. Therapy reviewed regarding management of hypertension and includes Edarbi and Norvasc. #3. Type II Hypercholesterolaemia: Currently taking medication and tolerating well. No interval complaints of any muscle pain or arthralgia. No significant liver changes with medications. Last lipid panel: fair control. Therapy reviewed regarding treatment of cholesterol management and include diet and Lipitor. #4. Gouty Arthritis: History of gouty arthritis. Has had no attacks since last examination. Currently taking tylenol and allopurinol. No interval complaints of any new joint involvement. #5. History of DVT in the past currently taking Eliquis. No interval complaints of any additional swelling, pain or hemoptysis or pleuritic type chest pain. Otherwise clinically doing well.: #6. Hx of obesity. Currently Class 2 Obesity BMI 35-39.99. Has tried numerous dietary support and supplements with no benefit. Instructed on the health consequences of the obese status particularly cancer - diabetes and heart disease. Discussed other modalities of weight loss no . Potential candidate for bariatric surgery: No. Wishes to be evaluated by Dietary: No and was offered to be evaluated and instructed by electroplating worker on weight loss diet. Active Medication ListEliquis 2.5 MG TABLET, FILM COATED One Twice DailyEdarbi 40 MG TABLET One DailyGlucosamine Chondrotin Sulfate 500 MG One Twice A DayNorvasc 5 MG TABLET One Twice DailyAspirin 81 MG Once DailyLipitor 10 MG (TABLET - ORAL) Half Tablet DailyLasix 40 MG (TABLET - ORAL) One Daily As NeededOs-rubén D 500 MG Two DailyMagnesium Oxide 500 MG Once DailyMultivitamin DailyLutein 6 MG One Twice A Day Adverse Drug Reactions ReviewedCoreg Irregular Heart BeatLodine DiarrheaZmax RashZithromax RashLisinopril CoughLosartan Potassium Unknown Vaccination and Immunization( ) 2024-06 INFLUENZA( ) 2021-07 COVID PFIZER( ) 2024-06 COVID BOOSTER PFIZER( ) 2007-10 PREVNAR 13 GC(X) 2008-11 PNEUMOVAX PREVNAR 20 Needed Surgical Bqnbjul4147-07 Left Inguinal Sbebzm1383-41 Bilateral Egauegpjd5207-93 Umbilical and Ventral Lbwwxj0207-31 Rt. Ciljvwmnspc1723-74 Coronary Ovirr6618-73 Umbilical Hernia Preventative Testing( ) 10/22/2023 Albumin 4.0 G/DL( ) 10/22/2023 PSA 2.72 NG/ML( ) 06/30/2021 Cologuard( ) 06/15/2021 CT Thorax Social HistoryDoes not smokeDrinks sociallyWork at [employer] Family HistoryMother 64 from CAD, [place] and DMFather 37 from CardiomyopathyOne brother of Mad-Cow diseaseOne sister living DM Jorge Luis Morales MD [address] [place] [address], [facility], [place], [address], [place] [facility] [employer] [facility] 08/20/2024 16:25:54 09/30/2024 text/html Primary care/Ref erring provider: Jorge Luis Morales MD At home since 12/31/23, the patient uses a MILO G3 unit with heated humidification. The patient does not need the ramp to start low and go up slowly on the pressure anymore. There is some xerostomia in a.m. There is no hose/mask condensation with water.The patient wears a [employer]Med large full face mask without chin strap. There is no claustrophobia, no nostril/nose bridge irritation, no facial rash, no facial numbness, no nosebleeding. The patient feels more refreshed upon waking and daytime alertness is improved. Energy levels are sustained until mid afternoon, around 4 pm. At home, the patient sleeps from 3 am to 11 am and wakes up without an alarm. Snoring: heavy, since 1980s.Snorting: yesChoking: noCoughing: yesGasping: noGagging: noSighing: noWitnessed apnea: yesTwitching or jerking of leg(s), arm(s), body, head: noTeeth grinding: yesTeeth clenching: yesSleeptalking: yesSleepwalking: noSleep crying: noBedwetting: noTongue/lip/gum/cheek biting: yesSleeping with open mouth: yesSleep paralysis: noHypnagogic hallucinations: noHypnopompic hallucinations: noVivid dreams: yesDifficulty with sleep onset: yesDifficulty with sleep maintenance: yesSleep interruptions: nocturia x 2Patient wakes up with: fatigue, xerostomia, cognitive impairment, mobility impairmentDaytime cataplexy: noMorning hypersomnolence: yesAfternoon hypersomnolence: yesCaffeine sources in diet: coffee 1 cup per day, tea 1 bottle per week, soda 6 oz per day, chocolate 1 candy bar per month Associated medical and psychiatric conditions:Congestive heart failure: noCoronary artery disease: yesMyocardial infarction: yesHypertension: yesStroke: noBronchial asthma: noChronic obstructive pulmonary disease: noDepression: yesBipolar disorder: noAnxiety: yesPanic disorder: noPosttraumatic stress disorder: noAttention deficit and hyperactivity disorder: noObsessive Compulsive disorder: noSchizophrenia: noSchizoaffective disorder: noPersonality disorder: noChronic analgesic use: noChronic sedative/hypnotic use: no EPWORTH SLEEPINESS SCALE (ESS) CHANCE OF DOZING SCORE0 = would never doze1 = slight chance of dozing2 = moderate chance of dozing3 = high chance of dozing SITUATION AND CHANCE OF DOZINGSitting and reading - 3Watching television - 3Sitting inactive in a public place (e.g. a theater or meeting) - 3As a passenger in a car for an hour without a break - 1Lying down to rest in the afternoon when circumstances permit - 3Sitting and talking to someone - 0Sitting quietly after lunch without alcohol - 3In a car, while stopped for a few minutes in the traffic - 0TOTAL SCORE 15Subjectively, patient has a moderate chance of dozing. Felix Rodríguez MD [address] [facility], [address], [place], [address], [place] [facility] 09/30/2024 16:17:38 12/17/2024 text/html Patient Name: Rivera Cole CarterDate Of Service: November ( 12.17.2024 ): 1940 Age: 84 There has been approximately a 6 lb weight gain since 08/20/2024. This represents approximately a 2.5% change in weight. Weight change attributable to lifestyle changes. Vital Signs:Blood Pressure: Sitting Rt. Arm 134/80Pulse: Sitting 83 /min and RegularRespiratory Rate: 16Height 65 in or 1.7 mWeight 242 lb or 109.8 kgBMI 40.3Temperature: 97 F or 36.1 CPulse Oximetry: 95 % at rest on no oxygen Chief Complaint: Addressed in HPI Problems or conditions discussed in the HPI were the only ones reviewed during the encounter.Only social and family history addressed in the HPI were reviewed during this encounter. Attendant(s): NoneConstitutional and Systemic Symptoms:none Medication Reconciliation: from medication list. [id number]: CT scan of abdomen and pelvis revealed several subcentimeter pulmonary nodules in the right lung base. Most likely benign. No evidence of any recurrent metastatic disease in the abdomen otherwise noted. 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 Estimated ejection fraction 65%. There severe enlargement of left atrium. There is nonspecific thickening of the mitral valve with trace physiological mitral valve regurgitation there is aortic sclerosis and aortic valve regurgitation moderate tricuspid valve is normal in appearance there is trace physiological regurgitation. History of Present Illness #1. Coronary Artery Disease: There has been no change in frequency - duration - intensity in frequency, duration or intensity of chest pain. Other Complaints: none The frequency of anginal attacks is none at all. Additional Symptoms: none, syncope, pre-syncope, vertigo, ataxia and palpitations Therapy reviewed regarding cardiovascular management includes Aspirin, Edarbi, Eliquis, Lipitor and Norvasc #2. Essential Hypertension: Stage: Stage I Interval Neurological Complaints no headaches, dizziness, weakness, visual changes and ataxia. No shortness of breath, orthopnea or cardiovascular symptoms. No other symptoms related to end organ damage. Pressure has been under excellent control. Currently normal. No other end organ symptoms or findings. Therapy reviewed regarding management of hypertension and includes salt restriction and Edarbi and Norvasc. #3. Type II Hypercholesterolaemia: Currently taking medication and tolerating well. No interval complaints of any muscle pain or arthralgia. No significant liver changes with medications. Last lipid panel: fair control. Therapy reviewed regarding treatment of cholesterol management and include diet and Lipitor. #4. Gouty Arthritis: History of gouty arthritis. Has had no attacks since last examination. Currently taking None. No interval complaints of any new joint involvement. #5. Renal Cell Cancer: History of renal cell cancer on right. There has been no pain, fever, chills or other signs or symptoms of any metastatic disease. #6. Hx of obesity. Currently Class 3 Obesity [place] > 40. Has tried numerous dietary support and supplements with no benefit. Instructed on the health consequences of the obese status particularly cancer - diabetes and heart disease. Discussed other modalities of weight loss no . Potential candidate for bariatric surgery: No. Wishes to be evaluated by Dietary: No and was offered to be evaluated and instructed by electroplating worker on weight loss diet. Active Medication ListEliquis 2.5 MG TABLET, FILM COATED One Twice DailyEdarbi 40 MG TABLET One DailyGlucosamine Chondrotin Sulfate 500 MG One Twice A DayNorvasc 5 MG TABLET One Twice DailyAspirin 81 MG Once DailyLipitor 10 MG (TABLET - ORAL) Half Tablet DailyLasix 40 MG (TABLET - ORAL) One Daily As NeededOs-rubén D 500 MG Two DailyMagnesium Oxide 500 MG Once DailyMultivitamin DailyLutein 6 MG One Twice A Day Adverse Drug Reactions ReviewedCoreg Irregular Heart BeatLodine DiarrheaZmax RashZithromax RashLisinopril CoughLosartan Potassium Unknown Vaccination and Immunization( ) 2024-06 INFLUENZA( ) 2021-07 COVID PFIZER( ) 2024-06 COVID BOOSTER PFIZER( ) 2007-10 PREVNAR 13 GC(X) 2008-11 PNEUMOVAX PREVNAR 20 Needed Surgical Aomrmqe8478-45 Left Inguinal Tgvsnv7742-51 Bilateral Vewludxjc3311-77 Umbilical and Ventral Mivvbs6300-36 Rt. Gedcvxlqevq9035-93 Coronary Rbcdw6060-20 Umbilical Hernia Preventative Testing( ) 10/22/2023 Albumin 4.0 G/DL( ) 10/22/2023 PSA 2.72 NG/ML( ) 06/30/2021 Cologuard( ) 06/15/2021 CT Thorax Social HistoryDoes not smokeDrinks sociallyWork at [employer] Family HistoryMother 64 from CAD, [place] and DMFather 37 from CardiomyopathyOne brother of Mad-Cow diseaseOne sister living DM TEST RESULT RANGE UNITSCBC/COMPLETE BLD COUNT W/DIFF Date: 10/22/2023WHITE BLOOD CELLS 7.6 4.2-10.8 X10'3/ULHEMOGLOBIN 16.9 13.2-17.0 G/DLHEMATOCRIT 51.1 39.3-50.0 %PLATELETS 244 150-400 X10'3/ULCOMPREHENSIVE METABOLIC PANEL Date: 10/22/2023SODIUM 139 137-145 MMOL/LPOTASSIUM 4.4 3.5-5.1 MMOL/LGLUCOSE 100 70-99 MG/DLBUN 28 8-19 MG/DLCREATININE 1.32 0.66-1.25 MG/DLGFR 52ALKALINE PHOSPHATASE 77 38-126 U/LALANINE AMINOTRANSFERASE 27 0-50 U/LASPARTATE AMINOTRANSFERASE 38 15-46 U/LBILIRUBIN, TOTAL 0.80 0.20-1.30 MG/DLLIPID PANEL Date: 10/22/2023HOLESTEROL 127 140-199 MG/DLTRIGLYCERIDES 192 0-150 MG/DLHDL CHOLESTEROL 29 40- MG/DLLDL CHOLESTEROL, CALCULATED 60 0-130 MG/DLPSA, TOTAL Date: 10/22/2023SA, TOTAL 2.72 0.00-4.00 NG/ML Jorge Luis Morales MD [address] [facility], [address], [place], [address], [place] [facility] 12/17/2024 16:30:59
--- OUTSIDE RECORDS SUMMARY | 2025-03-16 14:11 | XMS_ITS | CONTINUITY OF CARE DOCUMENT ---
Author Name didi, didi Address Unknown Organization [facility] Address [address] [facility] [address] [place] [address] Phone [phone] Care Team Providers Care Platform Inspector Name Role Phone Gina WALKER, Ector Unavailable JOSEPH WALKER, ENID Unavailable [phone] ENID RUIZ MD Unavailable [phone] PROBLEMS Condition Status Date Provider Notes OBESITY;will consider medifaszt, did not want belviq active Darell Bardales MD CHEST PAIN-02/28 ECHO MOD-SEV AVR EF 60-07/28 ECHO EF 60 completed - Darell Bardales MD CAD-06/29 CATH NONOBS CAD LVH EF 70 completed - Darell Bardales MD CHEST PAIN-05/29 NUC ISCHEMIA completed - Boubacar Bardales MD PALPITATIONS completed - Darell Bardales MD hx of AMI, 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 Darell peraza MD Aortic regurgitation, moderate-severe active Ector Fuentes MD Aortic valve sclerosis active Darell Bardales MD Renal disease, chronic, mild;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.5 2013, due to nephrectomay for ca 2009 active Darell Bardales MD two pulmonary nodule;grew so slow that they are watching active Darell Bardales MD Edema--L leg active Ector Fuentes MD Tobacco use, quit active Angy Kim SLEEP APNEA active Ector Fuentes MD Dyspnea on exertion active Ector Fuentes MD DVT of RLE active Ector Fuentes MD Proteinuria active Ector Fuentes MD Palpitations active Ector Fuentes MD Back pain active Ector Fuentes MD CKD active Ector Fuentes MD CHF - diastolic active Ector Fuentes MD Cardiology examination active Ector Fuentes MD HTN-09/27 RENAL US RIGHT NEPHRECTOMY completed - Darell Bardales MD HTN-09/27 URBAN DUP NEG completed - Darell augustin MD Hypercholesterolemia active Saranya Concepicon lder HTN active Ector Fuentes MD CAD- TAXUS LAD stent active Ector Fuentes MD STENT - CORONARY-03/26 TAXUS LAD, open in 13 for complete completed - Angy Kim (Status post) ENCOUNTERS Date Type Provider Location Encounter Diag nosis - In-person encounter Office Visit Ector Fuentes MD [facility] Cardiology examination - In-person encounter Office Visit Ector Fuentes MD [facility] CAD- TAXUS LAD stentHTN - In-person encounter Office Visit Ector Fuentes MD [facility] - In-person encounter Office Visit Ector Fuentes MD [facility] - In-person encounter Office Visit Ector Fuentes MD [facility] CKDCHF - diastolic - In-person encounter Office Visit Ector Fuentes MD [facility] - In-person encounter Office Visit Ector Fuentes MD [facility] Back pain - In-person encounter Office Visit Ector Fuentes MD [facility] - In-person encounter Office Visit Ector Fuentes MD [facility] - In-person encounter Office Visit Ector Fuentes MD [facility] ProteinuriaPalpitations - In-person encounter Office Visit Ector Fuentes MD [facility] Aortic regurgitation, moderate-severeDVT of RLE - In-person encounter Office Visit Ector Fuentes MD [facility] - In-person encounter Office Visit Ector Fuentes MD [facility] Dyspnea on exertion - In-person encounter Office Visit Ector Fuentes MD [facility] - In-person encounter Office Visit Ector Fuentes MD [facility] - In-person encounter Office Visit Ector Fuentes MD [facility] - In-person encounter Office Visit Ector Fuentes MD [facility] - In-person encounter Office Visit Ector Fuentes MD [facility] SLEEP APNEA - In-person encounter Office Visit Ector Fuentes MD [facility] CAD- TAXUS LAD stentAortic regurgitation, moderate-severeTobacco use, quit - In-person encounter Office Visit Ector Fuentes MD [facility] Edema--L leg - In-person encounter Office Visit Darell Bardales MD [facility] CAD- TAXUS LAD stentHTNOBESITY;will consider medifaszt, did not want belviqCHEST PAIN-02/28 ECHO MOD-SEV AVR EF 60-07/28 ECHO EF 60HTN-09/27 URBAN DUP NEGHTN-09/27 RENAL US RIGHT NEPHRECTOMYCAD-06/29 CATH NONOBS CAD LVH EF 70CHEST PAIN-05/29 NUC ISCHEMIAPALPITATIONShx of AMI, anterior wall 06Aortic regurgitation, moderate-severeAortic valve sclerosisRenal disease, chronic, mild;cr 1.5 2013, due to nephrectomay for ca 2009two pulmonary nodule;grew so slow that they are watching - In-person encounter Office Visit Ector Fuentes MD [facility] - In-person encounter Office Visit Ector Fuentes MD [facility] - In-person encounter Office Visit Ector Fuentes MD [facility] - In-person encounter Office Visit Ector Fuentes MD [facility] - In-person encounter Office Visit Ector Fuentes MD [facility] - In-person encounter Office Visit Ector Fuentes MD [facility] - In-person encounter Office Visit Ector Fuentes MD [facility] - In-person encounter Office Visit Ector Fuentes MD [facility] - In-person encounter Office Visit Ector Fuentes MD [facility] - In-person encounter Office Visit Ector Fuentes MD [facility] - In-person encounter Office Visit Ector Fuentes MD [facility] - In-person encounter Office Visit Ector Fuentes MD [facility] - In-person encounter Office Visit Ector Fuentes MD [facility] - In-person encounter Office Visit Ector Fuentes MD [facility] STENT - CORONARY-03/26 TAXUS LAD, open in 13 for completeCAD- TAXUS LAD stentHTNHypercholesterolemia VITAL SIGNS Date Observation Value Provider Body Mass Index (Ratio) 37.44 kg/m2 Dee Fuentes MD blood pressure, diastolic 89 mm[Hg] Gris avina Cropsey blood pressure, systolic 128 mm[Hg] [facility], oximetry 97 % [facility] pulse rate 103 /min [facility] respiratory rate E&M 12 /min [facility] weight E&M 232 [lb_av] [facility] height E&M 66 [in_i] [facility] blood pressure, cuff size regular [facility] Body Mass Index (Ratio) 38.57 kg/m2 Dee Fuentes MD blood pressure, diastolic 85 mm[Hg] Gris diasPark[facility] blood pressure, systolic 140 mm[Hg] alysha goncalvesPark[facility] oxygen saturation, oximetry 95 % [facility] pulse rate 87 /min [facility] respiratory rate E&M 12 /min [facility] weight E&M 239 [lb_av] [facility] height E&M 66 [in_i] [facility] blood pressure, cuff size regular [facility] Body Mass Index (Ratio) 37.93 kg/m2 Dee Fuentes MD blood pressure, cuff size large Ke rri Katrin blood pressure, diastolic 72 mm[Hg] Ke rri Shirley blood pressure, systolic 122 mm[Hg] William ri Katrin oxygen saturation, oximetry 94 % Saranya Katrin pulse rate 82 /min Saranya Nadegenenfe [facility] weight E&M 235 [lb_av] Saranya Grjackienenfe [facility] height E&M 66 [in_i] Saranya Eddieuenenfe [facility] Body Mass Index (Ratio) 37.60 kg/m2 Dee Fuentes MD blood pressure, cuff size regular Ke rri Gruenenfelder blood pressure, diastolic 86 mm[Hg] Ke rri Gruenenfelder blood pressure, systolic 146 mm[Hg] William ri Nadegeneaugieeldugnner oxygen saturation, oximetry 96 % Saranya Nadegeneaugieankur respiratory rate E&M 12 /min Saranya Alaina orozco pulse rate 95 /min Saranya Nadegenenfe [facility] weight E&M 233 [lb_av] Saranya Louienfe [facility] height E&M 66 [in_i] Saranya Nadegenenfe [facility] Body Mass Index (Ratio) 39.06 kg/m2 Rell Blackwood pulse rate 99 /min Maryam Swanson blood pressure, cuff size regular Ta gino Swanson blood pressure, diastolic 84 mm[Hg] Ta bitha Swanson blood pressure, systolic 142 mm[Hg] Tab itha Swanson oxygen saturation, oximetry 94 % Maryam Swanson weight E&M 242 [lb_av] Maryam Swanson respiratory rate E&M 12 /min Maryam Swanson height E&M 66 [in_i] Maryam Swanson Body Mass Index (Ratio) 40.02 kg/m2 Zaki garcia [place] blood pressure, cuff size regular Ja rret blood pressure, diastolic 92 mm[Hg] Ja rret blood pressure, systolic 154 mm[Hg] Sy guerrero pulse rate 85 /min Shailesh respiratory rate E&M 18 /min Shailesh oxygen saturation, oximetry 96 % Shailesh weight E&M 248 [lb_av] Shailesh height E&M 66 [in_i] Shailesh y Body Mass Index (Ratio) 41.31 kg/m2 Dee Fuentes MD blood pressure, diastolic 79 mm[Hg] Li nkLog blood pressure, systolic 133 mm[Hg] Kiesha og blood pressure, cuff size regular [facility] blood pressure, diastolic 79 mm[Hg] [facility] blood pressure, systolic 133 mm[Hg] [facility], oximetry 97 % [facility] respiratory rate E&M 16 /min Rachel Abrahan michelle pulse rate 107 /min [facility] weight E&M 256 [lb_av] [facility] height E&M 66 [in_i] [facility] Body Mass Index (Ratio) 41.31 kg/m2 Dee Fuentes MD blood pressure, diastolic 86 mm[Hg] St justino Lou blood pressure, systolic 139 mm[Hg] Geoffrey Lou oxygen saturation, oximetry 95 % Christy Lou pulse rate 99 /min Christy Lou respiratory rate E&M 18 /min Christy gardner weight E&M 256 [lb_av] Christy Lou height E&M 66 [in_i] Christy Lou Body Mass Index (Ratio) 41.80 kg/m2 Dee Fuentes MD blood pressure, diastolic 85 mm[Hg] Li nkLogic blood pressure, systolic 155 mm[Hg] Kiesha kLogic blood pressure, diastolic 85 mm[Hg] Ri steph Noe blood pressure, systolic 155 mm[Hg] Darius andrew Noe blood pressure, cuff size large Marguerite Noe oxygen saturation, oximetry 98 % Kiah Noe respiratory rate E&M 16 /min Mony Noe pulse rate 97 /min Kiah bradley weight E&M 259 [lb_av] Kiah bradley height E&M 66 [in_i] Kiah Vincent kirk Body Mass Index (Ratio) 41.31 kg/m2 Dee Fuentes MD blood pressure, diastolic 56 mm[Hg] Or steph Jimi blood pressure, systolic 106 mm[Hg] Dash andrew Krause oxygen saturation, oximetry 96 % Denia Krause pulse rate 110 /min Denia underwood weight E&M 256 [lb_av] Denia underwood respiratory rate E&M 16 /min Mell Krause blood pressure, cuff size large Clary steph Jimi height E&M 66 [in_i] Denia underwood Body Mass Index (Ratio) 42.77 kg/m2 Dee Fuentes MD blood pressure, diastolic 91 mm[Hg] Jodi Mcmillan blood pressure, systolic 137 mm[Hg] Caity Mcmillan oxygen saturation, oximetry 98 % Lacy Mcmillan respiratory rate E&M 18 /min Bayron Mcmillan pulse rate 86 /min Lacy bradley weight E&M 265 [lb_av] Lacy bradley blood pressure, cuff size regular Jodi Mcmillan height E&M 66 [in_i] Lacy bradley Body Mass Index (Ratio) 41.64 kg/m2 Dee Fuentes MD blood pressure, diastolic 80 mm[Hg] Li nkLogic blood pressure, systolic 140 mm[Hg] Kiesha kLogic blood pressure, cuff size regular Cy ntbelinda Arnold blood pressure, diastolic 80 mm[Hg] Cy nthia Arnold blood pressure, systolic 140 mm[Hg] Tracie moraima Clayton respiratory rate E&M 16 /min Kristine Arnold pulse rate 92 /min Kristine Campbel l oxygen saturation, oximetry 97 % Kristine Arnold weight E&M 258 [lb_av] Kristine Campbel l height E&M 66 [in_i] Kristine Campbel l Body Mass Index (Ratio) 43.90 kg/m2 Dee Fuentes MD blood pressure, cuff size regular Cy ntbelinda Arnold blood pressure, diastolic 70 mm[Hg] Cy nthia Arnold blood pressure, systolic 122 mm[Hg] Tracie lashandaa Clayton oxygen saturation, oximetry 95 % Kristine Arnold respiratory rate E&M 16 /min Kristine Arnold pulse rate 73 /min Kristine Campbel l weight E&M 272 [lb_av] Kristine Campbel l height E&M 66 [in_i] Kristine Campbel l Body Mass Index (Ratio) 44.06 kg/m2 Dee Fuentes MD blood pressure, cuff size large Ke rri Katrin blood pressure, diastolic 82 mm[Hg] Ke rri Katrin blood pressure, systolic 116 mm[Hg] William Rosenthalankurgunner oxygen saturation, oximetry 97 % Saranya Morganmartinaugieissa respiratory rate E&M 18 /min Saranya Foley jayfranklynnfelder pulse rate 75 /min Saranya Concepcion er weight E&M 273 [lb_av] Saranya Concepcion er height E&M 66 [in_i] Saranya Concepcion er Body Mass Index (Ratio) 41.15 kg/m2 Dee Fuentes MD blood pressure, cuff size large Ke corina Katrin blood pressure, diastolic 70 mm[Hg] Ke rralysha Nadegesushmaissa blood pressure, systolic 122 mm[Hg] William de la paz Katirn oxygen saturation, oximetry 97 % Saranya Morganmartinaugieissa respiratory rate E&M 22 /min Saranya Foley jayrogerissa pulse rate 66 /min Saranya Concepcion er weight E&M 255 [lb_av] Saranya Concepcion er height E&M 66 [in_i] Saranya Concepcion er Body Mass Index (Ratio) 44.38 kg/m2 Dee Fuentes MD oxygen saturation, oximetry 95 % Haydee Matthew respiratory rate E&M 20 /min Haydee V oss pulse rate 66 /min Haydee Matthwe weight E&M 275 [lb_av] Haydee Matthew blood pressure, diastolic 78 mm[Hg] Me josephine Domingo blood pressure, systolic 132 mm[Hg] Chantel jo-ann Domingo pulse rate 72 /min Becca Domingo oxygen saturation, oximetry 97 % Becca Domingo respiratory rate E&M 18 /min Becca Domingo Body Mass Index (Ratio) 42.61 kg/m2 Maddy Lane weight E&M 264.0 [lb_av] Becca Lane blood pressure, diastolic 99 mm[Hg] Camilla Adrian blood pressure, systolic 159 mm[Hg] Rica Adrian pulse rate 79 /min Justin Martinez chantelmelia oxygen saturation, oximetry 91 % Justin Adrian respiratory rate E&M 18 /min Connie Adrian Body Mass Index (Ratio) 42.12 kg/m2 Loretta Adrian weight E&M 261 [lb_av] Justin Martinez chantelon blood pressure, diastolic 88 mm[Hg] Ke rri Katrin blood pressure, systolic 153 mm[Hg] William ri Katrin pulse rate 76 /min Saranya Ariadnae lder oxygen saturation, oximetry 96 % Saranya Katrin respiratory rate E&M 16 /min Saranya Alaina sanchez Body Mass Index (Ratio) 42.93 kg/m2 Boyer alysha Wilkes weight E&M 266 [lb_av] Saranya Rosenthale lder blood pressure, diastolic 84 mm[Hg] Camilla Adrian blood pressure, systolic 139 mm[Hg] Rica Adrian Body Mass Index (Ratio) 42.61 kg/m2 Loretta Adrian pulse rate 80 /min Justin Martinez chantelmelia oxygen saturation, oximetry 96 % Justin Adrian respiratory rate E&M 16 /min Connie Adrian weight E&M 264 [lb_av] Justin Martinez chantelon Body Mass Index (Ratio) 41.64 kg/m2 Boyer alysha Wilkes blood pressure, diastolic 62 mm[Hg] Ke rri Katrin blood pressure, systolic 108 mm[Hg] William de la paz Katrin pulse rate 64 /min Saranya Morganjackievishal lder oxygen saturation, oximetry 97 % Saranya Morganmartinaugieissa respiratory rate E&M 16 /min Saranya Foley daniel weight E&M 258 [lb_av] Saranya Ariadnasancho lder blood pressure, diastolic 85 mm[Hg] Tommy muro Kenyon RN blood pressure, systolic 135 mm[Hg] Joe Garcias RN pulse rate 64 /min Joe Garcias RN oxygen saturation, oximetry 97 % Joe Garcias RN respiratory rate E&M 16 /min Joe Marvin [facility] RN Body Mass Index (Ratio) 42.12 kg/m2 Joe Garcias RN weight E&M 260 [lb_av] Joe Garcias RN blood pressure, diastolic 72 mm[Hg] Tommy muro Kenyon RN blood pressure, systolic 138 mm[Hg] Joe Garcias RN pulse rate 69 /min Joe Garcias RN oxygen saturation, oximetry 97 % Joe Garcias RN respiratory rate E&M 16 /min Joe Wong [facility] RN Body Mass Index (Ratio) 41.79 kg/m2 Joe Garcias RN weight E&M 258 [lb_av] Joe Garcias RN Body Mass Index (Ratio) 42.60 kg/m2 Cherelle a Stueber blood pressure, diastolic 70 mm[Hg] Ta more Stueber blood pressure, systolic 114 mm[Hg] Dumont sacha Stueber pulse rate 79 /min Tonja Stueber oxygen saturation, oximetry 98 % Tonja Stueber respiratory rate E&M 18 /min Tonja beasley weight E&M 263 [lb_av] Tonja Ramos blood pressure, diastolic 89 mm[Hg] Tommy Kenyon RN blood pressure, systolic 148 mm[Hg] Joe Kenyon RN pulse rate 65 /min Joe Kenyon RN oxygen saturation, oximetry 96 % Joe Kenyon RN respiratory rate E&M 18 /min Joe chun RN weight E&M 265 [lb_av] Joe Kenyon RN blood pressure, diastolic 70 mm[Hg] Chuck Toribio blood pressure, systolic 118 mm[Hg] Jocelyne Toribio pulse rate 63 /min Katie Toribio oxygen saturation, oximetry 96 % Katie Toribio respiratory rate E&M 18 /min Katie lubin weight E&M 261 [lb_av] Katie Toribio blood pressure, diastolic 66 mm[Hg] Tommy Kenyon RN blood pressure, systolic 136 mm[Hg] Joe Kenyon RN pulse rate 62 /min Joe Kenyon RN oxygen saturation, oximetry 96 % Joe Kenyon RN respiratory rate E&M 20 /min Joe sommers RN weight E&M 258 [lb_av] Joe Kenyon RN blood pressure, diastolic 75 mm[Hg] Tommy Kenyon RN blood pressure, systolic 133 mm[Hg] Joe Kenyon RN pulse rate 59 /min Joe Kenyon RN oxygen saturation, oximetry 98 % Joe Kenyon RN respiratory rate E&M 18 /min oJe sommers RN weight E&M 256 [lb_av] Joe Kenyon RN blood pressure, diastolic, left arm 74 mm [Hg] Santhosh [place] blood pressure, systolic, left arm 137 mm [Hg] Santhosh [place] blood pressure, diastolic 74 mm[Hg] Hortensia mantilla [place] blood pressure, systolic 137 mm[Hg] Leonard beltran [place] pulse rate 54 /min Santhosh [place] oxygen saturation, oximetry 95 % Santhosh [place] respiratory rate E&M 16 /min Santhosh [place] weight E&M 246 [lb_av] Santhosh [place] oxygen saturation, oximetry 99 % Summer Mejia [place] blood pressure, diastolic 82 mm[Hg] Evelin Mejia MA blood pressure, systolic 131 mm[Hg] Garth Mejia MA pulse rate 61 /min Summer Mejia MA respiratory rate E&M 18 /min Summer Roberto MA weight E&M 251 [lb_av] Summer Mejia MA blood pressure, diastolic 81 mm[Hg] Hortensia seph [place] blood pressure, systolic 146 mm[Hg] Leonard beltran [place] pulse rate 62 /min Santhosh [place] oxygen saturation, oximetry 98 % Santhosh [place] respiratory rate E&M 16 /min Santhosh [place] weight E&M 250 [lb_av] Santhosh [place] blood pressure, diastolic 81 mm[Hg] Tommy Kenyon RN blood pressure, systolic 144 mm[Hg] Joe Kenyon RN pulse rate 69 /min Joe Kenyon RN oxygen saturation, oximetry 98 % Joe Kenyon RN respiratory rate E&M 18 /min Joe chun RN weight E&M 237 [lb_av] oJe Kenyon RN blood pressure, diastolic 89 mm[Hg] Tommy Kenyon RN blood pressure, systolic 155 mm[Hg] Joe Kenyon RN pulse rate 55 /min Joe Kenyon RN oxygen saturation, oximetry 98 % Joe Kenyon RN respiratory rate E&M 18 /min Joe chun RN weight E&M 245 [lb_av] Joe Kenyon RN blood pressure, diastolic 94 mm[Hg] Hortensia seph [place] blood pressure, systolic 164 mm[Hg] Leonard eph [place] pulse rate 50 /min Santhosh [place] oxygen saturation, oximetry 96 % Santhosh [place] respiratory rate E&M 16 /min Santhosh [place] weight E&M 245 [lb_av] Santhosh [place] height E&M 66 [in_i] [facility], [facility] 85 mm[Hg] Tommy Kenyon RN blood pressure, systolic 147 mm[Hg] Joe Kenyon RN pulse rate 60 /min Joe Kenyon RN oxygen saturation, oximetry 96 % Joe Kenyon RN respiratory rate E&M 20 /min Joe chun RN weight E&M 248 [lb_av] Joe Kenyon RN blood pressure, diastolic 80 mm[Hg] Bautista Cm blood pressure, systolic 138 mm[Hg] Lynn pulse rate 74 /min Angelia Cm oxygen saturation, oximetry 96 % Angelia Cm respiratory rate E&M 18 /min Angelia sotelo weight E&M 246 [lb_av] Angelia Cm ALLERGIES Allergy Name Onset Date Reaction Criticality Status LOSARTAN did not tolerate Low Criticality act scotty LISINOPRIL cough cough Low Criticality active COREG Low Criticality active ZITHROMAX Low Criticality active RESULTS Date Observation Value Provider Reference Range Interpretation Location triglyceride, serum, fasting 166 mg/dL Destiny Isbell RN HDL cholesterol, serum 30 mg/dL Destiny Isbell RN LDL cholesterol, serum 56 mg/dL Destiny Isbell RN lipoprotein, beta, serum, point, quantitative, calculated 48 mg/dL Daniela Aguilar cholesterol, serum 105 mg/dL Daniela Aguilar thyroid stimulating hormone, serum 2.860 u[IU]/mL [facility] platelet count 189 10*3/mm3 [facility] hematocrit, blood 48.4 % [facility] triglyceride, serum, fasting 163 mg/dL [facility] HDL cholesterol, serum 30 mg/dL [facility] LDL cholesterol, serum 45 mg/dL [facility] cholesterol, serum 108 mg/dL [facility] anion gap, serum 8.6 [facility] globulins, serum, total 2.8 g/dL [facility] estimated glomerular filtration rate 51 mL/min [facility] albumin/globulin ratio, serum 1.4 [facility] protein, total, serum 6.7 g/dL [facility] albumin, serum 3.9 g/dL [facility] bilirubin, serum, total 0.50 mg/dL [facility] alkaline phosphatase, serum 125 1/L [facility] alanine aminotransferase (SGPT), serum 34 1/L [facility] aspartate aminotransferase (SGOT), serum 28 1/L [facility] calcium, serum 9.4 mg/dL [facility] blood glucose, fasting 89 mg/dL [facility] creatinine, serum 1.47 mg/dL [facility] urea nitrogen, blood 22.0 mg/dL [facility] carbon dioxide, serum, total 30 mmol/L [facility] chloride, serum 107 mmol/L [facility] potassium, serum 4.6 mmol/L [facility] sodium, serum 141 mmol/L [facility] blood glucose, fasting 96 mg/dL [facility], serum 1.6 mg/dL [facility] urea nitrogen, blood 19 mg/dL [facility] carbon dioxide, serum, total 28 mmol/L [facility] Sophia chloride, serum 102 mmol/L [facility] potassium, serum 4.1 mmol/L [facility] sodium, serum 139 mmol/L [facility] platelet count 197 10*3/uL Baldev Angelina hematocrit, blood 46.2 % Baldev Angelina hemoglobin, blood 15.7 g/dL [facility] leukocyte count, blood 7.1 10*3/mm3 [facility] prothrombin time (patient) 11.2 s Baldev Angelina international normalized ratio (INR) 1.1 Baldev Alfaro HISTORY OF MEDICATION USE Medication Status Instructions Dates Provider Indications Com ments Edarbyclor 40-12.5 mg tablet active Take 1 tablet by mouth once a day Ector Fuentes MD Edarbi 40 mg tablet completed 1 tablet by mouth every night - Ector Fuentes MD venlafaxine 37.5 mg tablet active 1/2 tablet by mouth once a day Jeannette PAZ Jardiance 10 mg tablet completed Take 1 tablet by mouth once a day - Jeannette PIERREP amlodipine 5 mg tablet active TAKE 1 TABLET BY MOUTH TWICE DAILY Priscila Kruse amlodipine 5 mg tablet completed TAKE 1 TABLET BY MOUTH TWICE DAILY - Jeannette PIERREP furosemide 20 mg tablet active Take 1 tablet by mouth once a day Jeannette PIERREP aspirin 81 mg tablet,delayed release (DR/EC) active Take 1 tablet by mouth once a day Ector Fuentes MD Eliquis 2.5 mg tablet active takes 1 tablet twice a day Jeannette PIERREP amlodipine 5 mg tablet completed Take 1 tablet by mouth twice a day take as directed - Shailesh Christensen atorvastatin 10 mg tablet active TAKE 1/2 TABLET BY MOUTH EVERY DAY Kira Gutiérrez lutein 20 mg capsule active Take 1 tablet once a day Jeannette Platt [employer] Q-10 (with Vit E) 100-5 mg-unit capsule completed Take 1 tablet once a day - Jeannette Platt [employer] magnesium oxide 500 mg tablet active Take 1 tablet once a day Kristine Arnold calcium carbonate 600 mg calcium (1,500 mg) tablet active Take 1 tablet once a day Kristine Arnold glucosamine sulfate 1,000 mg capsule active Take 1 tablet once a day Kristine Arnold furosemide 40 mg tablet completed Take 1 tablet once a day - Ector Fuentes MD FUROSEMIDE 40 MG ORAL TABLET completed 1 tablet daily - Haydee Castro venlafaxine 37.5 mg tablet completed 1 tablet once a day - Ector Fuentes MD ASTELIN SOLUTION completed as needed - Jeannette Platt [facility] atorvastatin 10 mg tablet completed Take 0.5 tablet by mouth once a day - Zamzam Duncan amlodipine 5 mg tablet completed 1 tablet twice a day - Pauly Alcala METOPROLOL SUCCINATE ER 25 MG ORAL TABLET EXTENDED RELEASE 24 HOUR completed one tab. daily - Ector Fuentes MD COREG 6.25 MG ORAL TABLET completed ONE TAB. TWICE DAILY - Teagan Arredondo RN TEKTURNA 300 MG ORAL TABLET completed 1 tablet by mouth once daily - Joe Kenyon RN VIAGRA 50 MG ORAL TABLET completed ONE DAILY PRN about an hour prior to having sex. - Santhosh Ramon HYZAAR 100-12.5 MG ORAL TABLET completed ONE TAB. DAILY - Joe Kenyon RN LISINOPRIL-HYDRO CHLOROTHIAZIDE 20-12.5 MG ORAL TABLET completed 1 tab po qd - Ector Fuentes MD ASTELIN 137 MCG/SPRAY NASAL SOLUTION completed as needed - Joe Kenyon RN SINGULAIR 10 MG ORAL TABLET completed QD - Santhosh Ramon ZOCOR 20 MG ORAL TABLET completed ONE TAB. AT BEDTIME - Santhosh Ramon NORVASC 5 MG ORAL TABLET completed ONE TAB. DAILY - Ector Fuentes MD COREG 6.25 MG ORAL TABLET completed ONE TAB. TWICE DAILY - Joe Kenyon RN ASPIRIN 81 MG ORAL TABLET completed 1 tablet once a day - Ector Fuentes MD SIMVASTATIN 40 MG ORAL TABLET completed one tablet daily - Loretta Romeo RN Plavix 75 mg tablet completed 1 tablet by mouth once a day - Ector Fuentes MD SOCIAL HISTORY Date Observation Value Provider personal history of marijuana use no Ector Fuentes MD drug use no Ector Fuentes MD alcohol use no Ector Fuentes MD passive cigarette sm patricia exposure no Ector Fuentes MD chewing tobacco use Never Ector floyd MD smoking, year quit 1960 Ector felix MD number of years as a smoker 2 a Ector Fuentes MD smoking, date started 1957 Ector Fuentes MD smoking history, tot al pack/year 60 Ector Fuentes MD smoking history, tot al pack/day 2-3/day Ector Fuentes MD cigarette use yes Ector Underwood smoking status Former smoker Ector Fuentes MD personal history of marijuana use no Ector Fuentes MD drug use no Ector Fuentes MD alcohol use no Ector Fuentes MD passive cigarette sm patricia exposure no Ector Fuentes MD chewing tobacco use Never Ector floyd MD smoking, year quit 1960 Ector felix MD number of years as a smoker 2 a Ector Fuentes MD smoking, date started 1957 Ector Fuentes MD smoking history, tot al pack/year 60 Ector Fuentes MD smoking history, tot al pack/day 2-3/day Ector Fuentes MD cigarette use yes Ector Underwood smoking status Former smoker Ector Fuentes MD personal history of marijuana use no Ector Fuentes MD drug use no Ector Fuentes MD alcohol use no Ector Fuentes MD passive cigarette sm patricia exposure no Ector Fuentes MD chewing tobacco use Never Ector floyd MD smoking, year quit 1960 Ector felix MD number of years as a smoker 2 a Ector Fuentes MD smoking, date started 1957 Ector Fuentes MD smoking history, tot al pack/year 60 Ector Fuentes MD smoking history, tot al pack/day 2-3/day Ector Fuentes MD cigarette use yes Ector Fuentes M D smoking status Former smoker Ector Fuentes MD personal history of marijuana use no Jeannette Ventimiglia [facility] drug use no Jeannette Ventimig jose [employer] alcohol use no Jeannette Ventimig jose [employer] passive cigarette sm patricia exposure no Jeannette Ventimiglia [employer] chewing tobacco use Never Jeannette V entimiglia [employer] smoking, year quit 1960 Jeannette Ve ntimiglia [employer] number of years as a smoker 2 a Jeannette Ventimiglia [employer] smoking, date started 1957 Jeannette Ventimiglia [facility] smoking history, tot al pack/year 60 Jeannette Ventimiglia [employer] smoking history, tot al pack/day 2-3/day Jeannette Ventimiglia [facility] cigarette use yes Jeannette Ventimi glia [employer] smoking status Former smoker Jeannette Venti miglia [employer] personal history of marijuana use no Jeannette Ventimiglia [employer] drug use no Jeannette Ventimig jose [facility] alcohol use no Jeannette Ventimig jose [facility] passive cigarette sm patricia exposure no Jeannette Ventimiglia [facility] chewing tobacco use Never Jeannette V entimiglia [facility] smoking, year quit 1959 Jeannette Ve ntimiglia [facility] number of years as a smoker 2 a Jeannette Ventimiglia [facility] smoking, date started 1957 Jeannette Ventimiglia [facility] smoking history, tot al pack/year 60 Jeannette Ventimiglia [facility] smoking history, tot al pack/day 2-3/day Jeannette Ventimiglia [facility] cigarette use yes Jeannette Ventimi glia [employer] smoking status Former smoker Jeannette Venti miglia [facility] personal history of marijuana use no Jeannette Ventimiglia [employer] drug use no Jeannette Ventimig jose [employer] alcohol use no Jeannette Ventimig jose [employer] passive cigarette sm patricia exposure no Jeannette Ventimiglia [employer] chewing tobacco use Never Jeannette V entimiglia [employer] smoking, year quit 1959 Jeannette Ve ntimiglia [facility] number of years as a smoker 2 a Jeannette Dennisglia [facility] smoking, date started 1957 Jeannette Dennisglia [facility] smoking history, tot al pack/year 60 Jeannette Dennisglia [facility] smoking history, tot al pack/day 2-3/day Jeannette Venticlaryglia [facility] cigarette use yes Jeannette Dennis glia [facility] smoking status Former smoker Jeannette zavalalia [facility] social history reviewed E&M revi ewed - no changes required Ector Fuentes MD social history E&M Marital Statu s: L kwame with family/friends E thnicity: Smoking History: P atient is a former smoker. Ector Fuentes MD smoking status Former smoker Ectro Fuentes MD drug use no Jeannette Dennisg jose [facility] alcohol use no Jeannettedaniel Farmermig jose [facility] physical exercise, frequency, days per week yes Christy Lou caffeine use, averag e drinks per day yes Christy Lou passive cigarette sm patricia exposure no Christy Lou chewing tobacco use Never Christy Lujan smoking, year quit 1960 Christy traore number of years as a smoker 2 a Christy Lou smoking, date started 1957 Christy Lou smoking history, tot al pack/year 60 Christy Lou smoking history, tot al pack/day 2-3/day Christy Lou cigarette use yes Christy Lou smoking status Former smoker Christy Lou social history E&M Marital Statu s: L kwame with family/friends E thnicity: Smoking History: P atlatonya is a former smoker. Ector Fuentes MD social history reviewed E&M revi ewed - no changes required Ector Fuentes MD physical exercise, frequency, days per week yes Kiahsada Noe caffeine use, averag e drinks per day yes [place] Noe passive cigarette sm patrciia exposure no [place] Noe chewing tobacco use Never [place] Noe smoking, year quit 1960 [place] Noe number of years as a smoker 2 a [place] Noe smoking, date started 1957 Nick Busch smoking history, tot al pack/year 60 [place] Noe smoking history, tot al pack/day 2-3/day Kiah Hasmukh cigarette use yes Kiah saeed smoking status Former smoker Kiah Brad chacon smoking status Former smoker Ector Fuentes MD alcohol use no Ector Fuentes MD social history reviewed E&M revi ewed - no changes required Ector Fuentes MD social history E&M Marital Statu s: L kwame with family/friends E thnicity: Smoking History: Ariella malik is a former smoker. Ector Fuentes MD physical exercise, frequency, days per week yes Denia Krause caffeine use, averag e drinks per day yes Denia Krause passive cigarette sm patricia exposure no Denia Krause chewing tobacco use Never Denia Krause smoking, year quit 1960 Denia Krause number of years as a smoker 2 a Denia Krause smoking, date started 1957 Christofer Quarles smoking history, tot al pack/year 60 Denia Krause smoking history, tot al pack/day 2-3/day Denia Krause cigarette use yes Denia Noble nd physical exercise, frequency, days per week yes Ector Fuentes MD caffeine use, averag e drinks per day yes Ector Fuentes MD passive cigarette sm patricia exposure no Ector Fuentes MD chewing tobacco use Never Ector floyd MD smoking, year quit 1960 Ector felix MD number of years as a smoker 2 a Ector Fuentes MD smoking, date started 1957 Ector Fuentes MD smoking history, tot al pack/year 60 Ector Fuentes MD smoking history, tot al pack/day 2-3/day Ector Fuentes MD cigarette use yes Ector Underwood smoking status Former smoker Ector Fuentes MD social history reviewed E&M revi ewed - no changes required Ector Fuentes MD social history E&M Marital Statu s: Surekha puente with family/friends E thnicity: Smoking History: Ariella malik is a former smoker. Ector Fuentes MD social history reviewed E&M revi ewed - no changes required Ector Fuentes MD physical exercise, frequency, days per week yes Kristine Arnold caffeine use, averag e drinks per day yes Kristine Arnold passive cigarette sm patricia exposure no Kristine Arnold chewing tobacco use Never Kristine Arnold smoking, year quit 1960 Kristine bell number of years as a smoker 2 a Kristine Arnold smoking, date started 1957 Alvaro Arnold smoking history, tot al pack/year 60 Kristine Arnold smoking history, tot al pack/day 2-3/day Kristine Arnold cigarette use yes Kristine gardnre smoking status Former smoker Kristine ocampo social history E&M Marital Statu s: L kwame with family/friends E thnicity: Smoking History: P atient is a former smoker. Ector Fuentes MD social history reviewed E&M revi ewed - no changes required Ector Fuentes MD physical exercise, frequency, days per week yes Kristine Arnold caffeine use, averag e drinks per day yes Kristine Arnold passive cigarette sm patricia exposure no Kristine Arnold chewing tobacco use Never Kristine Arnold smoking, year quit 1959 Kristine bell number of years as a smoker 2 a Kristine Arnold smoking, date started 1957 Alvaro Arnold smoking history, tot al pack/year 60 Kristine Arnold smoking history, tot al pack/day 2-3/day Kristine Arnold cigarette use yes Kristine gardner smoking status Former smoker Kristine Dilip ocampo social history E&M Marital Statu s: L kwame with family/friends E thnicity: Smoking History: P atlatonya is a former smoker. Ector Fuentes MD social history reviewed E&M revi ewed - no changes required Ector Fuentes MD physical exercise, frequency, days per week yes Saranya Wilkes alcohol use, average drinks per day none Saranya Wilkes alcohol use no Saranya kennedyer caffeine use, averag e drinks per day yes Saranya Wilkes drug use no Saranya thomas passive cigarette sm patricia exposure no Saranya Wilkes chewing tobacco use Never Saranya koenig smoking, year quit 1960 Saranya white number of years as a smoker 2 a Saranya Wilkes smoking, date started 1957 Saranya Rosenthalankurgunner smoking history, tot al pack/year 60 Saranya Watsoner smoking history, tot al pack/day 2-3/day Saranya Watsoner cigarette use yes Saranya parsons smoking status Former smoker Saranya ghoshankurer smoking history, tot al pack/year 60 Pauly Alcala social history reviewed E&M revi ewed - no changes required Ector Fuentes MD smoking history, tot al pack/year 59 Ruby Colin RN number of grandchildren Ector Fuentes MD U amarilis Fuentes MD social history reviewed E&M revi ewed - no changes required Ector Fuentes MD physical exercise, frequency, days per week yes Haydee Matthew alcohol use, average drinks per day none Haydee Matthew alcohol use no Haydee Matthew caffeine use, averag e drinks per day yes Haydee Matthew drug use no Haydee Matthew passive cigarette sm patricia exposure no Haydee Matthew chewing tobacco use Never Haydee Vo ss smoking, year quit 1960 Haydee Luis Carlos s number of years as a smoker 2 a Haydee Matthew smoking, date started 1957 Haydee Matthew smoking history, tot al pack/year 58 Haydee Matthew smoking history, tot al pack/day 2-3/day Haydee Matthew cigarette use yes Haydee Matthew smoking status Former smoker Haydee Matthew smoking history, tot al pack/year 58 Saranya Lightchristalaugieankurgunner social history reviewed E&M revi ewed - no changes required cEtor Fuentes MD smoking status Former smoker Becca Lane physical exercise, frequency, days per week yes Becca Lane alcohol use, average drinks per day none Becca Domingo alcohol use no Becca Lane caffeine use, averag e drinks per day yes Becca Lane drug use no Becca Lane passive cigarette sm patricia exposure no Becca Lane chewing tobacco use Never Becca Lane smoking, year quit 1960 Becca avila number of years as a smoker [address] smoking, date started [address] smoking history, tot al pack/day 2-3/day Becca [address] cigarette use yes Becca Lane social history reviewed E&M revi ewed - no changes required Ector Fuentes MD physical exercise, frequency, days per week yes Justin Camposenson alcohol use, average drinks per day none JustinBriana Camposenson alcohol use no JustinBriana Campose chantelon caffeine use, averag e drinks per day yes Justin Adrian drug use no Justin aMrtinez chantelon passive cigarette sm patricia exposure no Justin Adrian chewing tobacco use Never Cameron bhaskar Adrian smoking, year quit 1960 Justin Adrian number of years as a smoker 2 a Justin Adrian smoking, date started 1957 Donte Adrian smoking history, tot al pack/day 2-3/day Justin Adrian cigarette use yes Justin Andres myles smoking status Former smoker Justin St palumbo social history E&M Marital Statu s: L kwame with family/friends E thnicity: Smoking History: Ariella malik is a former smoker. Ector Fuentes MD social history reviewed E&M revi ewed - no changes required Ector Fuentes MD alcohol use no Saranya thomas smoking status Former smoker Saranya hsieh smoking/tobacco cess ation, patient education and counseling yes Ector Fuentes MD social history E&M Marital Statu s: Surekha puente with family/friends E thnicity: Ariella malik is a former smoker. Smoking History: Ariella malik is a former smoker. Ector Fuentes MD social history reviewed E&M revi ewed - no changes required Ector Fuentes MD physical exercise, frequency, days per week yes Justin Adrian alcohol use, average drinks per day none Justin Adrian alcohol use no Justin deleon caffeine use, averag e drinks per day yes Justin Adrian drug use no Justin deleon passive cigarette sm patricia exposure no Justin Adrian chewing tobacco use Never Cameron Adrian smoking, year quit 1960 Justin Adrian number of years as a smoker 2 a Justin Adrian smoking, date started 1957 Donte Adrian smoking history, tot al pack/day 2-3/day Justin Adrian cigarette use yes Justin bueno smoking status Former smoker Ector Fuentes MD social history reviewed E&M revi ewed - no changes required Darell Bardales MD alcohol use no Saranya kennedyer chewing tobacco use Never Saranya koenig smoking history, tot al pack/day 2-3/day Saranya Wilkes smoking, year quit 1960 Saranya white number of years as a smoker 2 a Saranya Wilkes smoking, date started 1957 Saranya Wilkes cigarette use yes Saranya parsons smoking status Former smoker Saranya Palma nfelder social history reviewed E&M reviewed Joe Kenyon RN social history reviewed E&M reviewed Joe Kenyon RN social history reviewed E&M reviewed Joe Kenyon RN drug use no Joe Kenyon RN passive cigarette sm patricia exposure no Joe Kenyon RN social history reviewed E&M reviewed Joe Kenyon RN smoking status never smoker Joe Kenyon RN social history reviewed E&M reviewed Joe Kenyon RN social history reviewed E&M reviewed Joe Kenyon RN social history reviewed E&M reviewed Joe Kenyon RN social history reviewed E&M reviewed Ector Fuentes MD social history reviewed E&M reviewed Ector Fuentes MD social history reviewed E&M reviewed Joe Kenyon RN social history reviewed E&M reviewed Joe Kenyon RN social history reviewed E&M reviewed Joe Kenyon RN social history reviewed E&M reviewed Joe Kenyon RN social history reviewed E&M reviewed Joe Kenyon RN social history E&M Marital Statu s: L kwame with family/friends E thnicity: Joe Kenyon RN social history reviewed E&M reviewed Joe Kenyon RN physical exercise, frequency, days per week yes [employer] caffeine use, averag e drinks per day yes [employer] alcohol use, average drinks per day none [employer] smoking status Non-smoker [employer] FUNCTIONAL STATUS Date Observation Value Provider HRA, CV Assess/Plan, Angina (inactive) Management Plan continue current therapy Ector Fuentes MD HRA, CV Assess/Plan, Angina (inactive) Management Plan continue current therapy Jeannette PAZ HRA, CV Assess/Plan, Angina (inactive) Management Plan continue current therapy Jeannette Ventimiglbang PAZ HRA, CV Assess/Plan, Angina (inactive) Management Plan continue current therapy Ector Fuentes MD HRA, CV Assess/Plan, Angina (inactive) Management Plan continue current therapy Jeannettedaniel Denniscassidy [employer] HRA, CV Assess/Plan, Angina (inactive) Management Plan continue current therapy Ector Fuentes MD HRA, CV Assess/Plan, Angina (inactive) Management Plan continue current therapy Ector Fuentes MD HRA, CV Assess/Plan, Angina (inactive) Management Plan continue current therapy Ector Fuentes MD HRA, CV Assess/Plan, Angina (inactive) Management Plan continue current therapy Ector Fuentes MD HRA, CV Assess/Plan, Angina (inactive) Management Plan continue current therapy Ector Fuentes MD MENTAL STATUS Date Observation Value Provider assessment of judgme nt and insight E&M Alert and oriented to time, place and person. Mood and affect are normal. Joe Kenyon RN assessment of judgme nt and insight E&M Alert and oriented to time, place and person. Mood and affect are normal. Joe Kenyon RN assessment of judgme nt and insight E&M Alert and oriented to time, place and person. Mood and affect are normal. Joe Kenyon RN assessment of judgme nt and insight E&M Alert and oriented to time, place and person. Mood and affect are normal. Joe Kenyon RN assessment of judgme nt and insight E&M Alert and oriented to time, place and person. Mood and affect are normal. Joe Kenyon RN assessment of judgme nt and insight E&M Alert and oriented to time, place and person. Mood and affect are normal. Joe Kenyon RN assessment of judgme nt and insight E&M Alert and oriented to time, place and person. Mood and affect are normal. Joe Kenyon RN assessment of judgme nt and insight E&M Alert and oriented to time, place and person. Mood and affect are normal. Ector Fuentes MD assessment of judgme nt and insight E&M Alert and oriented to time, place and person. Mood and affect are normal. Ector Fuentes MD assessment of judgme nt and insight E&M Alert and oriented to time, place and person. Mood and affect are normal. Joe Kenyon RN assessment of judgme nt and insight E&M Alert and oriented to time, place and person. Mood and affect are normal. Joe Kenyon RN assessment of judgme nt and insight E&M Alert and oriented to time, place and person. Mood and affect are normal. Joe Kenyon RN assessment of judgme nt and insight E&M Alert and oriented to time, place and person. Mood and affect are normal. Joe Kenyon RN assessment of judgme nt and insight E&M Alert and oriented to time, place and person. Mood and affect are normal. Joe Kenyon RN assessment of judgme nt and insight E&M Alert and oriented to time, place and person. Mood and affect are normal. Joe Kenyon RN FAMILY HISTORY Family Member Condition Full Sister Family History of Di abetes: Full Brother Family History of Co ronary Artery Disease: Full Brother Family History of Di abetes: Mother Family History of Co ronary Artery Disease: Mother Family History of Di abetes: INSURANCE PROVIDERS Payer name Policy type / Coverage type [place] red green party ID [facility] MEDICARE ADVANTAGE (PPO) Commercial in [place] [id number] ADVANCE DIRECTIVES Name Date DISCUSSED - NO DECISION MADE TREATMENT PLAN Date Name Performer [id number],S, Ector Fuentes MD [id number],C,occasional Us viviane Fuentes MD [id number],C, B P today: 133/79 P rior BP: 139/86 (02/07/2023) Labs Reviewed: C reat: 1.47 (06/20/2010) C hol: 105 (07/25/2012) HDL: 30 (03/24/2013) LDL: 56 (03/24/2013) T (03/24/2013) His updated medication list for this problem includes: Amlodipine 5 Mg Tablet (Amlodipine) ..... Take 1 tablet by mouth twice a day take as directed Amlodipine 5 Mg Tablet (Amlodipine) ..... Take 1 tablet by mouth twice daily Furosemide 40 Mg Tablet (Furosemide) ..... Take 1 tablet by mouth once a day Aspirin 81 Mg Tablet,delayed Release (dr/ec) (Aspirin) ..... Take 1 tablet by mouth once a day Ector Fuentes MD [id number],C,PCP managing labs Ector Fuentes MD [id number],C,weight loss e ncouraged [facility] [id number],C,R manuel on statin therapy H is updated medication list for this problem includes: Atorvastatin 10 Mg Tablet (Atorvastatin) ..... Take 1/2 tablet by mouth every day [facility] [id number],C,T he patient is using CPAP on a regular basis. The patient has been benefiting from therapy and should continue use. [facility] [id number],C,M oderate on last echo with normal EF. He is asymptomatic. Will continue to monitor [facility] [id number],C,B lood pressure has normaliized. He is back on amlodopine and tolerating well. He will continue to montior BP at home H is updated medication list for this problem includes: Amlodipine 5 Mg Tablet (Amlodipine) ..... Take 1 tablet by mouth twice a day take as directed Furosemide 40 Mg Tablet (Furosemide) ..... Take 1 tablet by mouth once a day Aspirin 81 Mg Tablet,delayed Release (dr/ec) (Aspirin) ..... Take 1 tablet by mouth once a day [facility] [id number],S,I advised him to lose weight. Ector Fuentes MD [id number],C,S tress test was negative. Heart shows normal LV functon with E to A wave reversal and an E to E' is 8.4. Ector Fuentes MD [id number],C,W ill check labs and echo and 24hr holter. Ector Fuentes MD [id number],C,W ill decrease Amlodiphine 5mg BID to 2.5mg once a day or as needed, B P today: 106/56 P rior BP: 137/91 (02/01/2022) Labs Reviewed: C reat: 1.47 (06/20/2010) C hol: 105 (07/25/2012) HDL: 30 (03/24/2013) LDL: 56 (03/24/2013) T (03/24/2013) Ector Fuentes MD [id number],C,T his could be his angina equivilent will do a echo and regadenoson. Ector Fuentes MD [id number],S, A R was moderate-severe by echo 09/2021. His SOB is stable and we'll continue monitoring his echos on a yearly basis. Ector Fuentes MD [id number],N, T his was apparently diagnosed on 12/19/21. He's taking eliquis 5mg BID and is off plavix and aspirin. I don't think he needs any more imaging of the leg right now. He should continue on eliquis 5mg BID for 6 months and then we'll reduce it to 2.5mg BID at the end of June for however long we think is necessary at that time. We can consider checking another venous US at that time. Because he has CAD, I recommended he restart a daily baby aspirin. Ector Fuentes MD [id number],S, B P today: 137/91 P rior BP: 140/80 (07/27/2021) His updated medication list for this problem includes: Aspirin 81 Mg Tablet,delayed Release (dr/ec) (Aspirin) ..... Take 1 tablet by mouth once a day Amlodipine 5 Mg Tablet (Amlodipine) ..... Take 1 tablet by mouth twice daily Furosemide 40 Mg Tablet (Furosemide) ..... Take 1 tablet once a day Ector Fuentes MD [id number],S, A ppears stable. We're continuing with medical therapy. His echo 09/2021 showed normal LVSF, EF 65%, moderate-severe AI. The following medications were removed from the medication list: Plavix 75 Mg Tablet (Clopidogrel) ..... 1 tablet by mouth once a day His updated medication list for this problem includes: Aspirin 81 Mg Tablet,delayed Release (dr/ec) (Aspirin) ..... Take 1 tablet by mouth once a day Amlodipine 5 Mg Tablet (Amlodipine) ..... Take 1 tablet by mouth twice daily Ector Fuentes MD [id number],S, H is updated medication list for this problem includes: Atorvastatin 10 Mg Tablet (Atorvastatin) ..... Take 1/2 tablet by mouth every day Ector Fuentes MD [id number],B, s table and continue medical therapy. will check Echo because CT suggested pulmonary arterial HTN Orders: Jean omplete Echo ([id number]) Ector Fuentes MD [id number],S, B P today: 140/80 P rior BP: 122/70 (10/23/2019) Labs Reviewed: C reat: 1.47 (06/20/2010) C hol: 105 (07/25/2012) HDL: 30 (03/24/2013) LDL: 56 (03/24/2013) T (03/24/2013) Ector Fuentes MD [id number],C, C ontinue statin Ector Fuentes MD [id number],S, Ector Fuentes MD Cardiology:The patie nt is using CPAP on a regular basis. The patient has been benefiting from therapy and should continue use. T his visit has been a part of the consistent, comprehensive, and ongoing management of the chronic medical condition(s) listed above for the patient. Ector Fuentes MD Cardiology: a ppears compensated T his visit has been a part of the consistent, comprehensive, and ongoing management of the chronic medical condition(s) listed above for the patient. His updated medication list for this problem includes: Edarbyclor 40-12.5 Mg Tablet (Azilsartan med-chlorthalidone) ..... Take 1 tablet by mouth once a day Amlodipine 5 Mg Tablet (Amlodipine) ..... Take 1 tablet by mouth twice daily Furosemide 20 Mg Tablet (Furosemide) ..... Take 1 tablet by mouth once a day Aspirin 81 Mg Tablet,delayed Release (dr/ec) (Aspirin) ..... Take 1 tablet by mouth once a day Ector Fuentes MD Cardiology: H is updated medication list for this problem includes Edarbyclor 40-12.5 Mg Tablet (Azilsartan med-chlorthalidone) ..... Take 1 tablet by mouth once a day Amlodipine 5 Mg Tablet (Amlodipine) ..... Take 1 tablet by mouth twice daily Furosemide 20 Mg Tablet (Furosemide) ..... Take 1 tablet by mouth once a day Aspirin 81 Mg Tablet,delayed Release (dr/ec) (Aspirin) ..... Take 1 tablet by mouth once a day BP today: 128/89 P rior BP: 140/85 (02/11/2025) Labs Reviewed: C reat: 1.47 (06/20/2010) C hol: 105 (07/25/2012) HDL: 30 (03/24/2013) LDL: 56 (03/24/2013) T (03/24/2013) Ector Fuentes MD Cardiology: S tress test was negative. Echo shows normal LV functon with E to A wave reversal and an E to E' is 8.4. Ector Fuentes MD Cardiology:The patie nt is using CPAP on a regular basis. The patient has been benefiting from therapy and should continue use. T his visit has been a part of the consistent, comprehensive, and ongoing management of the chronic medical condition(s) listed above for the patient. 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 Take 1 tablet by mouth twice daily Edarbi 40 Mg Tablet (Azilsartan medoxomil) ..... 1 tablet by mouth every night Furosemide 20 Mg Tablet (Furosemide) ..... Take 1 tablet by mouth once a day Aspirin 81 Mg Tablet,delayed Release (dr/ec) (Aspirin) ..... Take 1 tablet by mouth once a day BP today: 140/85 P rior BP: 122/72 (08/13/2024) Labs Reviewed: C reat: 1.47 (06/20/2010) C hol: 105 (07/25/2012) HDL: 30 (03/24/2013) LDL: 56 (03/24/2013) T (03/24/2013) Ector Fuentes MD Cardiology:Stable. C ontinue medical therapy. His updated medication list for this problem includes: Amlodipine 5 Mg Tablet (Amlodipine) ..... Take 1 tablet by mouth twice daily Aspirin 81 Mg Tablet,delayed Release (dr/ec) (Aspirin) ..... Take 1 tablet by mouth once a day Ector Fuentes MD Cardiology:Chronic f or him, C reatinine 1.26 Ector Fuentes MD Cardiology Ector Fuentes MD Cardiology:okay to u se lasix prn for swelling Ector Fuentes MD Cardiology:appears c ompensated T his visit has been a part of the consistent, comprehensive, and ongoing management of the chronic medical condition(s) listed above for the patient. His updated medication list for this problem includes: Edarbi 40 Mg Tablet (Azilsartan medoxomil) ..... 1 tablet by mouth every night Furosemide 20 Mg Tablet (Furosemide) ..... Take 1 tablet by mouth once a day Amlodipine 5 Mg Tablet (Amlodipine) ..... Take 1 tablet by mouth twice daily Aspirin 81 Mg Tablet,delayed Release (dr/ec) (Aspirin) ..... Take 1 tablet by mouth once a day Ector Fuentes MD Cardiology:well cont rolled at home His updated medication list for this problem includes: Edarbi 40 Mg Tablet (Azilsartan medoxomil) ..... 1 tablet by mouth every night Furosemide 20 Mg Tablet (Furosemide) ..... Take 1 tablet by mouth once a day Amlodipine 5 Mg Tablet (Amlodipine) ..... Take 1 tablet by mouth twice daily Aspirin 81 Mg Tablet,delayed Release (dr/ec) (Aspirin) ..... Take 1 tablet by mouth once a day BP today: 122/72 P rior BP: 146/86 (07/02/2024) Labs Reviewed: C reat: 1.47 (06/20/2010) C hol: 105 (07/25/2012) HDL: 30 (03/24/2013) LDL: 56 (03/24/2013) T (03/24/2013) Ector Fuentes MD Cardiology:continued weight loss [facility] Cardiology: H is updated medication list for this problem includes: Amlodipine 5 Mg Tablet (Amlodipine) ..... Take 1 tablet by mouth twice daily Aspirin 81 Mg Tablet,delayed Release (dr/ec) (Aspirin) ..... Take 1 tablet by mouth once a day [facility] Cardiology:[address]fr [address] [place] Fred arroyo [facility] Cardiology:The patie nt is using CPAP on a regular basis. The patient has been benefiting from therapy and should continue use. [facility]ette [facility] Cardiology:EF 60% on last echo A shanna [facility] Cardiology:Blood pre ssures fluctuate elevated in am and evening, but controlled in the afternoon W ill add Edarbi daily at night H ave asked him to monitor BP and bring readings to next visit H is updated medication list for this problem includes: Edarbi 40 Mg Tablet (Azilsartan medoxomil) ..... 1 tablet by mouth every night Furosemide 20 Mg Tablet (Furosemide) ..... Take 1 tablet by mouth once a day Amlodipine 5 Mg Tablet (Amlodipine) ..... Take 1 tablet by mouth twice daily Aspirin 81 Mg Tablet,delayed Release (dr/ec) (Aspirin) ..... Take 1 tablet by mouth once a day [facility] Cardiology:check BMP and ProBNP [facility] Cardiology: H is updated medication list for this problem includes: Atorvastatin 10 Mg Tablet (Atorvastatin) ..... Take 1/2 tablet by mouth every day [facility] Cardiology [facility] Cardiology:start las ix 20mg qMWF [facility] Cardiology:Occasiona l SBP > 150 S tates that he is not using lasix regularly, advised him to start lasix qMWF and check labs in 3-4 weeks [facility] Cardiology: a symptomatic His updated medication list for this problem includes: Amlodipine 10 Mg Tablet (Amlodipine) ..... Take 1 tablet by mouth twice daily Aspirin 81 Mg Tablet,delayed Release (dr/ec) (Aspirin) ..... Take 1 tablet by mouth once a day [facility] Cardiology: H is updated medication list for this problem includes: Atorvastatin 10 Mg Tablet (Atorvastatin) ..... Take 1/2 tablet by mouth every day [facility] Cardiology:asymptoma tic T he following medications were removed from the medication list: Amlodipine 5 Mg Tablet (Amlodipine) ..... Take 1 tablet by mouth twice daily His updated medication list for this problem includes: Amlodipine 5 Mg Tablet (Amlodipine) ..... Take 1 tablet by mouth twice a day take as directed Aspirin 81 Mg Tablet,delayed Release (dr/ec) (Aspirin) ..... 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 The patient has been benefiting from therapy and should continue use. [facility] Cardiology:EF remain s unchanged at 60% a symptomatic w ill continue present med regimen [facility] Cardiology:Blood pre ssure has some fluctuations but has been better controlled post medication W ill have him continue with lasix three times a week with his norvasc c ontinued weight loss encouraged. T he following medications were removed from the medication list: Amlodipine 5 Mg Tablet (Amlodipine) ..... Take 1 tablet by mouth twice daily His updated medication list for this problem includes: Furosemide 40 Mg Tablet (Furosemide) ..... Take 1 tablet by mouth once a day Amlodipine 5 Mg Tablet (Amlodipine) ..... Take 1 tablet by mouth twice a day take as directed Aspirin 81 Mg Tablet,delayed Release (dr/ec) (Aspirin) ..... Take 1 tablet by mouth once a day Jeannettedaniel Platt [facility] Cardiology Ector Fuentes MD Cardiology:occasional Ector andujar MD Cardiology: B P today: 133/79 P rior BP: 139/86 (02/07/2023) Labs Reviewed: C reat: 1.47 (06/20/2010) C hol: 105 (07/25/2012) HDL: 30 (03/24/2013) LDL: 56 (03/24/2013) T (03/24/2013) His updated medication list for this problem includes: Amlodipine 5 Mg Tablet (Amlodipine) ..... Take 1 tablet by mouth twice a day take as directed Amlodipine 5 Mg Tablet (Amlodipine) ..... Take 1 tablet by mouth twice daily Furosemide 40 Mg Tablet (Furosemide) ..... Take 1 tablet by mouth once a day Aspirin 81 Mg Tablet,delayed Release (dr/ec) (Aspirin) ..... Take 1 tablet by mouth once a day cEtor Fuentes MD Cardiology:PCP managing labs Pawel Fuentes MD Cardiology:weight loss encourage d [facility] Cardiology:Remains o n statin therapy H is updated medication list for this problem includes: Atorvastatin 10 Mg Tablet (Atorvastatin) ..... Take 1/2 tablet by mouth every day [facility] Cardiology:The patie nt is using CPAP on a regular basis. The patient has been benefiting from therapy and should continue use. [facility] Cardiology:Moderate on last echo with normal EF. He is asymptomatic. Will continue to monitor [facility] Cardiology:Blood pre ssure has normaliized. He is back on amlodopine and tolerating well. He will continue to montior BP at home H is updated medication list for this problem includes: Amlodipine 5 Mg Tablet (Amlodipine) ..... Take 1 tablet by mouth twice a day take as directed Furosemide 40 Mg Tablet (Furosemide) ..... Take 1 tablet by mouth once a day Aspirin 81 Mg Tablet,delayed Release (dr/ec) (Aspirin) ..... Take 1 tablet by mouth once a day Jeannettedaniel Platt [facility] Cardiology:I advised him to lose weight. Ector Fuentes MD Cardiology:Stress te st was negative. Heart shows normal LV functon with E to A wave reversal and an E to E' is 8.4. Ector Fuentes MD Cardiology:Will chec k labs and echo and 24hr holter. Ector Fuentes MD Cardiology:Will decr ease Amlodiphine 5mg BID to 2.5mg once a day or as needed, B P today: 106/56 P rior BP: 137/91 (02/01/2022) Labs Reviewed: C reat: 1.47 (06/20/2010) C hol: 105 (07/25/2012) HDL: 30 (03/24/2013) LDL: 56 (03/24/2013) T (03/24/2013) Ector Fuentes MD Cardiology:This coul d be his angina equivilent will do a echo and regadenoson. Ector Fuentes MD cardiog: A R was moderate-severe by echo 09/2021. His SOB is stable and we'll continue monitoring his echos on a yearly basis. Ector Fuentes MD cardiog: T his was apparently diagnosed on 12/19/21. He's taking eliquis 5mg BID and is off plavix and aspirin. I don't think he needs any more imaging of the leg right now. He should continue on eliquis 5mg BID for 6 months and then we'll reduce it to 2.5mg BID at the end of June for however long we think is necessary at that time. We can consider checking another venous US at that time. Because he has CAD, I recommended he restart a daily baby aspirin. Ector Fuentes MD cardiog: B P today: 137/91 P rior BP: 140/80 (07/27/2021) His updated medication list for this problem includes: Aspirin 81 Mg Tablet,delayed Release (dr/ec) (Aspirin) ..... Take 1 tablet by mouth once a day Amlodipine 5 Mg Tablet (Amlodipine) ..... Take 1 tablet by mouth twice daily Furosemide 40 Mg Tablet (Furosemide) ..... Take 1 tablet once a day Ector Fuentes MD cardiog: A ppears stable. We're continuing with medical therapy. His echo 09/2021 showed normal LVSF, EF 65%, moderate-severe AI. The following medications were removed from the medication list: Plavix 75 Mg Tablet (Clopidogrel) ..... 1 tablet by mouth once a day His updated medication list for this problem includes: Aspirin 81 Mg Tablet,delayed Release (dr/ec) (Aspirin) ..... Take 1 tablet by mouth once a day Amlodipine 5 Mg Tablet (Amlodipine) ..... Take 1 tablet by mouth twice daily Ector Fuentes MD cardiog: H is updated medication list for this problem includes: Atorvastatin 10 Mg Tablet (Atorvastatin) ..... Take 1/2 tablet by mouth every day Ector Fuentes MD Cardiology follow up : s table and continue medical therapy. will check Echo because CT suggested pulmonary arterial HTN Orders: C omplete Echo ([id number]) Ector Fuentes MD Cardiology follow up : B P today: 140/80 P rior BP: 122/70 (10/23/2019) Labs Reviewed: C reat: 1.47 (06/20/2010) C hol: 105 (07/25/2012) HDL: 30 (03/24/2013) LDL: 56 (03/24/2013) T (03/24/2013) Ector Fuentes MD Cardiology follow up : C ontinue statin Ector Fuentes MD Cardiology follow up Ector gauthier MD Telehealth:Melodie lara. Has been taking BP at home, running in the 120/80s. His updated medication list for this problem includes: Furosemide 40 Mg Oral Tablet (Furosemide) ..... Take one tab daily Aspirin 81 Mg Oral Tablet (Aspirin) ..... One tab. daily Amlodipine Besylate 5 Mg Oral Tablet (Amlodipine besylate) ..... One tablet twice daily Prior BP: 122/70 (10/23/2019) Labs Reviewed: C reat: 1.47 (06/20/2010) C hol: 105 (07/25/2012) HDL: 30 (03/24/2013) LDL: 56 (03/24/2013) T (03/24/2013) Ector Fuentes MD Telehealth Ector Fuentes MD Telehealth:Patient h as lost 20 pounds. current weight is 253. Ector Fuentes MD Cardiology follow up :He is having symptoms of CAMPA and has not had a stress test since 2008. Will check a stress regadenosen. Ector Fuentes MD Cardiology follow up :As above, will check stress regadenosen. Ector Fuentes MD Cardiology follow up : H is updated medication list for this problem includes: Atorvastatin Calcium 10 Mg Oral Tablet (Atorvastatin calcium) ..... 1/2 tablet by mouth daily Ector Fuentes MD Cardiology follow up :Will stop his metoprolol as his HR is running slower. BP today: 122/70 P rior BP: 116/82 (09/25/2018) Labs Reviewed: C reat: 1.47 (06/20/2010) C hol: 105 (07/25/2012) HDL: 30 (03/24/2013) LDL: 56 (03/24/2013) T (03/24/2013) Ector Fuentes MD Cardiology follow up :Moderate o n echo done today. Ector Fuentes MD Cardiology Follow up :Will check an echo prior to 1 year followup. Ector Fuentes MD Cardiology Follow up : B P today: 116/82 P rior BP: 122/70 (09/26/2017) Labs Reviewed: C reat: 1.47 (06/20/2010) C hol: 105 (07/25/2012) HDL: 30 (03/24/2013) LDL: 56 (03/24/2013) T (03/24/2013) Ector Fuentes MD Cardiology Follow up :Cont. Ator vastatin. Ector Fuentes MD Cardiology Follow up Ector gauthier MD Cardiology Follow up Ector gauthier MD Cardiology Follow up Ector gauthier MD Cardiology Follow up :Will decrease metoprolol to 25mg daily. His updated medication list for this problem includes: Atorvastatin Calcium 10 Mg Oral Tablet (Atorvastatin calcium) ..... 1/2 tablet by mouth daily Ector Fuentes MD Cardiology Follow up : B P today: 122/70 P rior BP: 132/78 (03/29/2016) Labs Reviewed: C reat: 1.47 (06/20/2010) C hol: 105 (07/25/2012) HDL: 30 (03/24/2013) LDL: 56 (03/24/2013) T (03/24/2013) Ector Fuentes MD Cardiology follow up :Per PCP. His updated medication list for this problem includes: Atorvastatin Calcium 10 Mg Tabs (Atorvastatin calcium) ..... 1/2 tablet by mouth daily Ector Fuentes MD Cardiology follow up :Stable His updated medication list for this problem includes: Plavix 75 Mg Tabs (Clopidogrel bisulfate) ..... 1 tabelt by mouth daily Aspirin 81 Mg Tabs (Aspirin) ..... One tab. daily Metoprolol Succinate 50 Mg Tb24 (Metoprolol succinate) ..... One tab. daily Amlodipine Besylate 10 Mg Tabs (Amlodipine besylate) ..... One tab. daily Ector Fuentes MD Cardiology follow up Ector gauthier MD Cardiology follow up Ector gauthier MD Cardiology Ector Fuentes MD Cardiology Ector Fuentes MD Cardiology:mild to m oderate aortic regurgitation per TTE (2015) Ector Fuentes MD Cardiology: H is updated medication list for this problem includes: Atorvastatin Calcium 10 Mg Tabs (Atorvastatin calcium) ..... 1/2 tablet by mouth daily Ector Fuentes MD Cardiology Ector Fuentes MD Cardiology: B P today: 159/99 P rior BP: 153/88 (2015) Patient is unable to tolerate Cozaar--excessive sweating. W ill switch back to Amlodipine 10mg and have him take Lasix 40mg q.d. for the leg swelling. B MP in 1 month. Ector Fuentes MD Cardiology Follow up :CHOL: 105 (07/25/2012) LDL: 56 (03/24/2013) HDL: 30 (03/24/2013) T (03/24/2013) His updated medication list for this problem includes: Atorvastatin Calcium 10 Mg Tabs (Atorvastatin calcium) ..... 1/2 tablet by mouth daily Ector Fuentes MD Cardiology Follow up :His echo t donna was unchanged. Ector Fuentes MD Cardiology Follow up :His echo t donna was unchanged. Ector Fuentes MD Cardiology Follow up :The pt will stop his Amlodipine and start on Cozaar 50mg. B P today: 153/88 P rior BP: 139/84 (06/23/2015) His updated medication list for this problem includes: Aspirin 81 Mg Tabs (Aspirin) ..... One tab. daily Metoprolol Succinate 50 Mg Tb24 (Metoprolol succinate) ..... One tab. daily Cozaar 50 Mg Tabs (Losartan potassium) ..... One tab. daily Ector Fuentes MD Cardiology Follow up :The pt reports improvement in his leg edema. Ector Fuentes MD fu:Advised patient t o reduce Amlodipine to 1/2 tablet Recommended standing venous doppler but patient wished to hold off on testing for now Ector Fuentes MD fu: B P today: 139/84 P rior BP: 108/62 (05/06/2014) Labs Reviewed: C reat: 1.47 (06/20/2010) C hol: 105 (07/25/2012) HDL: 30 (03/24/2013) LDL: 56 (03/24/2013) T (03/24/2013) Ector Fuentes MD Follow up Darell Bardales MD Follow up : O rders: C omplete Echo ([id number]) Darell Bardales MD Follow up : H is updated medication list for this problem includes: Aspirin 81 Mg Tabs (Aspirin) ..... One tab. daily Metoprolol Succinate 50 Mg Tb24 (Metoprolol succinate) ..... One tab. daily Amlodipine Besylate 10 Mg Tabs (Amlodipine besylate) ..... Daily Darell Bardales MD test results : H is updated medication list for this problem includes: Plavix 75 Mg Tabs (Clopidogrel bisulfate) ..... 1 tabelt by mouth daily Aspirin 81 Mg Tabs (Aspirin) ..... One tab. daily Metoprolol Succinate 50 Mg Tb24 (Metoprolol succinate) ..... One tab. daily Amlodipine Besylate 10 Mg Tabs (Amlodipine besylate) ..... Daily Atorvastatin Calcium 10 Mg Tabs (Atorvastatin calcium) ..... 1/2 tablet by mouth daily BP today: 135/85 Prior BP: 138/72 (10/30/2013) N uclear Stress Findings: Normal Beck protocol exercise tolerance test. Normal LV size and function with a EF 61%. Myocardial scintigraphy demonstrates inferior wall ischemia. (06/16/2009) C ardiac Cath: Patent TAXUS stent in the LAD. Muscle bridge in the mid to distal LAD. Normal circumflex. Normal right coronary artery. - [facility] (10/06/2013) C ardiac Cath Comments: 3.0 x 20mm Taxus stent LAD (04/05/2006) C arotid Doppler/Duplex: Normal carotid duplex examination. Vertebral flow is antegrade bilaterally. - O (09/25/2012) C HOL: 105 (07/25/2012) LDL: 56 (03/24/2013) HDL: 30 (03/24/2013) T (03/24/2013) H gb: 15.7 (06/22/2009) HCT: 48.4 (07/25/2012) Platelets: 189 (07/25/2012) W BC: 7.1 (06/22/2009) B UN: 22.0 (06/20/2010) Creat: 1.47 (06/20/2010) Glucose: 89 (06/20/2010) N a+: 141 (06/20/2010) K+: 4.6 (06/20/2010) Cl: 107 (06/20/2010) PT: 11.2 (06/22/2009) INR: 1.1 (06/22/2009) T SH: 2.860 (07/25/2012) Ector Fuentes MD test results : H is updated medication list for this problem includes: Plavix 75 Mg Tabs (Clopidogrel bisulfate) ..... 1 tabelt by mouth daily Aspirin 81 Mg Tabs (Aspirin) ..... One tab. daily Metoprolol Succinate 50 Mg Tb24 (Metoprolol succinate) ..... One tab. daily Amlodipine Besylate 10 Mg Tabs (Amlodipine besylate) ..... Daily BP today: 135/85 Prior BP: 138/72 (10/30/2013) N uclear Stress Findings: Normal Beck protocol exercise tolerance test. Normal LV size and function with a EF 61%. Myocardial scintigraphy demonstrates inferior wall ischemia. & #13;GC (06/16/2009) C ardiac Cath: Patent TAXUS stent in the LAD. Muscle bridge in the mid to distal LAD. Normal circumflex. Normal right coronary artery. - [facility] (10/06/2013) C ardiac Cath Comments: 3.0 x 20mm Taxus stent LAD (04/05/2006) C arotid Doppler/Duplex: Normal carotid duplex examination. Vertebral flow is antegrade bilaterally. - [facility] (09/25/2012) C HOL: 105 (07/25/2012) LDL: 56 (03/24/2013) HDL: 30 (03/24/2013) T (03/24/2013) H gb: 15.7 (06/22/2009) HCT: 48.4 (07/25/2012) Platelets: 189 (07/25/2012) W BC: 7.1 (06/22/2009) B UN: 22.0 (06/20/2010) Creat: 1.47 (06/20/2010) Glucose: 89 (06/20/2010) N a+: 141 (06/20/2010) K+: 4.6 (06/20/2010) Cl: 107 (06/20/2010) PT: 11.2 (06/22/2009) INR: 1.1 (06/22/2009) T SH: 2.860 (07/25/2012) Ector Fuentes MD test results : H is updated medication list for this problem includes: Plavix 75 Mg Tabs (Clopidogrel bisulfate) ..... 1 tabelt by mouth daily Aspirin 81 Mg Tabs (Aspirin) ..... One tab. daily Metoprolol Succinate 50 Mg Tb24 (Metoprolol succinate) ..... One tab. daily Amlodipine Besylate 10 Mg Tabs (Amlodipine besylate) ..... Daily BP today: 135/85 Prior BP: 138/72 (10/30/2013) H gb: 15.7 (06/22/2009) HCT: 48.4 (07/25/2012) Platelets: 189 (07/25/2012) W BC: 7.1 (06/22/2009) B UN: 22.0 (06/20/2010) Creat: 1.47 (06/20/2010) Glucose: 89 (06/20/2010) N a+: 141 (06/20/2010) K+: 4.6 (06/20/2010) Cl: 107 (06/20/2010) Anion Gap: 8.6 (06/20/2010) Calcium: 9.4 (06/20/2010) TSH: 2.860 (07/25/2012) Nuclear Stress Findings: Normal Beck protocol exercise tolerance test. Normal LV size and function with a EF 61%. Myocardial scintigraphy demonstrates inferior wall ischemia. (06/16/2009) C ardiac Cath: Patent TAXUS stent in the LAD. Muscle bridge in the mid to distal LAD. Normal circumflex. Normal right coronary artery. - [facility] (10/06/2013) C ardiac Cath Comments: 3.0 x 20mm Taxus stent LAD (04/05/2006) Ector Fuentes MD : H is updated medication list for this problem includes: Plavix 75 Mg Tabs (Clopidogrel bisulfate) ..... 1 tabelt by mouth daily Aspirin 81 Mg Tabs (Aspirin) ..... One tab. daily Metoprolol Succinate 50 Mg Tb24 (Metoprolol succinate) ..... One tab. daily Amlodipine Besylate 10 Mg Tabs (Amlodipine besylate) ..... Daily Atorvastatin Calcium 10 Mg Tabs (Atorvastatin calcium) ..... 1/2 tablet by mouth daily BP today: 138/72 Prior BP: 114/70 (03/19/2013) N uclear Stress Findings: Normal Beck protocol exercise tolerance test. Normal LV size and function with a EF 61%. Myocardial scintigraphy demonstrates inferior wall ischemia. (06/16/2009) C ardiac Cath: Nonobstructive CAD. Elevated LV diastolic pressure. LVH with hypertronic LV. EF 70%. [facility] (06/30/2009) C ardiac Cath Comments: 3.0 x 20mm Taxus stent LAD (04/05/2006) C arotid Doppler/Duplex: Normal carotid duplex examination. Vertebral flow is antegrade bilaterally. - GCO (09/25/2012) C HOL: 105 (07/25/2012) LDL: 56 (03/24/2013) HDL: 30 (03/24/2013) T (03/24/2013) H gb: 15.7 (06/22/2009) HCT: 48.4 (07/25/2012) Platelets: 189 (07/25/2012) WBC: 7.1 (06/22/2009) B UN: 22.0 (06/20/2010) Creat: 1.47 (06/20/2010) Glucose: 89 (06/20/2010) N a+: 141 (06/20/2010) K+: 4.6 (06/20/2010) Cl: 107 (06/20/2010) PT: 11.2 (06/22/2009) INR: 1.1 (06/22/2009) T SH: 2.860 (07/25/2012) Ector Fuentes MD follow up:rx weight loss Ector gold MD follow up: H is updated medication list for this problem includes: Aspirin 81 Mg Tabs (Aspirin) ..... One tab. daily Metoprolol Succinate 50 Mg Tb24 (Metoprolol succinate) ..... One tab. daily Amlodipine Besylate 5 Mg Tabs (Amlodipine besylate) ..... Once a day BP today: 114/70 P rior BP: 148/89 (09/25/2012) Labs Reviewed: C reat: 1.47 (06/20/2010) C hol: 105 (07/25/2012) HDL: 30 (06/20/2010) LDL: 48 (07/25/2012) T (06/20/2010) Ector Fuentes MD follow up: H is updated medication list for this problem includes: Aspirin 81 Mg Tabs (Aspirin) ..... One tab. daily Metoprolol Succinate 50 Mg Tb24 (Metoprolol succinate) ..... One tab. daily Amlodipine Besylate 5 Mg Tabs (Amlodipine besylate) ..... Once a day BP today: 114/70 P rior BP: 148/89 (09/25/2012) Labs Reviewed: C reat: 1.47 (06/20/2010) C hol: 105 (07/25/2012) HDL: 30 (06/20/2010) LDL: 48 (07/25/2012) T (06/20/2010) Ector Fuentes MD follow up: H is updated medication list for this problem includes: Plavix 75 Mg Tabs (Clopidogrel bisulfate) ..... 1 tabelt by mouth daily Aspirin 81 Mg Tabs (Aspirin) ..... One tab. daily Metoprolol Succinate 50 Mg Tb24 (Metoprolol succinate) ..... One tab. daily Amlodipine Besylate 5 Mg Tabs (Amlodipine besylate) ..... Once a day Atorvastatin Calcium 10 Mg Tabs (Atorvastatin calcium) ..... 1 tablet by mouth daily BP today: 114/70 Prior BP: 148/89 (09/25/2012) N uclear Stress Findings: Normal Beck protocol exercise tolerance test. Normal LV size and function with a EF 61%. Myocardial scintigraphy demonstrates inferior wall ischemia. (06/16/2009) C ardiac Cath: Nonobstructive CAD. Elevated LV diastolic pressure. LVH with hypertronic LV. EF 70%. [facility] (06/30/2009) C ardiac Cath Comments: 3.0 x 20mm Taxus stent LAD (04/05/2006) C arotid Doppler/Duplex: Normal carotid duplex examination. Vertebral flow is antegrade bilaterally. - GCO (09/25/2012) C HOL: 105 (07/25/2012) LDL: 48 (07/25/2012) HDL: 30 (06/20/2010) T (06/20/2010) H gb: 15.7 (06/22/2009) HCT: 48.4 (07/25/2012) Platelets: 189 (07/25/2012) W BC: 7.1 (06/22/2009) B UN: 22.0 (06/20/2010) Creat: 1.47 (06/20/2010) Glucose: 89 (06/20/2010) N a+: 141 (06/20/2010) K+: 4.6 (06/20/2010) Cl: 107 (06/20/2010) PT: 11.2 (06/22/2009) INR: 1.1 (06/22/2009) T SH: 2.860 (07/25/2012) Ector Fuentes MD routine-carotid prio r: H is updated medication list for this problem includes: Simvastatin 20 Mg Tabs (Simvastatin) ..... One tab. daily BP today: 148/89 Prior BP: 136/66 (02/07/2012) C HOL: 105 (07/25/2012) LDL: 48 (07/25/2012) HDL: 30 (06/20/2010) T (06/20/2010) Ector Fuentes MD routine-carotid prior Ector andujar MD routine-carotid prio r:Has gained 8 pounds and have asked him to exercise again. H is updated medication list for this problem includes: Aspirin 81 Mg Tabs (Aspirin) ..... One tab. daily Metoprolol Succinate 50 Mg Tb24 (Metoprolol succinate) ..... One tab. daily Amlodipine Besylate 5 Mg Tabs (Amlodipine besylate) ..... Once a day BP today: 148/89 P rior BP: 136/66 (02/07/2012) Labs Reviewed: C reat: 1.47 (06/20/2010) C hol: 105 (07/25/2012) HDL: 30 (06/20/2010) LDL: 48 (07/25/2012) T (06/20/2010) Ector Fuentes MD routine-carotid prio r: H is updated medication list for this problem includes: Plavix 75 Mg Tabs (Clopidogrel bisulfate) ..... 1 tabelt by mouth daily Aspirin 81 Mg Tabs (Aspirin) ..... One tab. daily Metoprolol Succinate 50 Mg Tb24 (Metoprolol succinate) ..... One tab. daily Amlodipine Besylate 5 Mg Tabs (Amlodipine besylate) ..... Once a day Simvastatin 20 Mg Tabs (Simvastatin) ..... One tab. daily BP today: 148/89 Prior BP: 136/66 (02/07/2012) N uclear Stress Findings: Normal Beck protocol exercise tolerance test. Normal LV size and function with a EF 61%. Myocardial scintigraphy demonstrates inferior wall ischemia. GC (06/16/2009) C ardiac Cath: Nonobstructive CAD. Elevated LV diastolic pressure. LVH with hypertronic LV. EF 70%. [facility] (06/30/2009) C ardiac Cath Comments: 3.0 x 20mm Taxus stent LAD (04/05/2006) C arotid Doppler/Duplex: No evidence of hemodynamically significant stenosis in the ICA bilaterally. The flow in the vertebral arteries is antegrade bilaterally. (04/30/2006) C HOL: 105 (07/25/2012) LDL: 48 (07/25/2012) HDL: 30 (06/20/2010) T (06/20/2010) H gb: 15.7 (06/22/2009) HCT: 48.4 (07/25/2012) Platelets: 189 (07/25/2012) W BC: 7.1 (06/22/2009) B UN: 22.0 (06/20/2010) Creat: 1.47 (06/20/2010) Glucose: 89 (06/20/2010) N a+: 141 (06/20/2010) K+: 4.6 (06/20/2010) Cl: 107 (06/20/2010) PT: 11.2 (06/22/2009) INR: 1.1 (06/22/2009) T SH: 2.860 (07/25/2012) Ector Fuentes MD follow up abrahan mulligan med change w/ echo prior:mild av regurg H is updated medication list for this problem includes: Plavix 75 Mg Tabs (Clopidogrel bisulfate) ..... 1 tabelt by mouth daily Aspirin 81 Mg Tabs (Aspirin) ..... One tab. daily Metoprolol Succinate 50 Mg Tb24 (Metoprolol succinate) ..... One tab. daily Amlodipine Besylate 5 Mg Tabs (Amlodipine besylate) ..... Once a day BP today: 118/70 Prior BP: 136/66 (02/07/2012) N uclear Stress Findings: Normal Beck protocol exercise tolerance test. Normal LV size and function with a EF 61%. Myocardial scintigraphy demonstrates inferior wall ischemia. (06/16/2009) C ardiac Cath: Nonobstructive CAD. Elevated LV diastolic pressure. LVH with hypertronic LV. EF 70%. [facility] (06/30/2009) C ardiac Cath Comments: 3.0 x 20mm Taxus stent LAD (04/05/2006) C arotid Doppler/Duplex: No evidence of hemodynamically significant stenosis in the ICA bilaterally. The flow in the vertebral arteries is antegrade bilaterally. (04/30/2006) C HOL: 108 (06/20/2010) LDL: 45 (06/20/2010) HDL: 30 (06/20/2010) T (06/20/2010) H gb: 15.7 (06/22/2009) HCT: 46.2 (06/22/2009) WBC: 7.1 (06/22/2009) B UN: 22.0 (06/20/2010) Creat: 1.47 (06/20/2010) Glucose: 89 (06/20/2010) N a+: 141 (06/20/2010) K+: 4.6 (06/20/2010) Cl: 107 (06/20/2010) PT: 11.2 (06/22/2009) INR: 1.1 (06/22/2009) E chocardiogram: Normal left ventricular systolic function. Mild enlargement of left ventricular chamber. There is borderline left ventricular hypertrophy. There is E to A wave reversal consistent with impaired LV relaxation. Abnormal E/E`, suggestive of elevated L VEDP.14.0. Left ventricular ejection fraction is estimated at 60%. Mild aortic stenosis. Moderate to severe aortic valve regurgitation. Peak AV velocity: 2.13 m/s. The Aortic Valve Peak Gradient is 18.00 mmHg. The Aortic Valve Mean Gradient is 11.00 mmHg. The VELVET is 2.3 cm2. - (03/06/2011) Ector Fuentes MD follow up abrahan mulligan med change w/ echo prior: H is updated medication list for this problem includes: Aspirin 81 Mg Tabs (Aspirin) ..... One tab. daily Metoprolol Succinate 50 Mg Tb24 (Metoprolol succinate) ..... One tab. daily Amlodipine Besylate 5 Mg Tabs (Amlodipine besylate) ..... Once a day BP today: 118/70 P rior BP: 136/66 (02/07/2012) Labs Reviewed: C reat: 1.47 (06/20/2010) C hol: 108 (06/20/2010) HDL: 30 (06/20/2010) LDL: 45 (06/20/2010) T (06/20/2010) Ector Fuentes MD follow up from med change w/ echo prior: H is updated medication list for this problem includes: Plavix 75 Mg Tabs (Clopidogrel bisulfate) ..... 1 tabelt by mouth daily Aspirin 81 Mg Tabs (Aspirin) ..... One tab. daily Metoprolol Succinate 50 Mg Tb24 (Metoprolol succinate) ..... One tab. daily Amlodipine Besylate 5 Mg Tabs (Amlodipine besylate) ..... Once a day Simvastatin 20 Mg Tabs (Simvastatin) ..... One tab. daily BP today: 118/70 Prior BP: 136/66 (02/07/2012) N uclear Stress Findings: Normal Beck protocol exercise tolerance test. Normal LV size and function with a EF 61%. Myocardial scintigraphy demonstrates inferior wall ischemia. (06/16/2009) C ardiac Cath: Nonobstructive CAD. Elevated LV diastolic pressure. LVH with hypertronic LV. EF 70%. [facility] (06/30/2009) C ardiac Cath Comments: 3.0 x 20mm Taxus stent LAD (04/05/2006) C arotid Doppler/Duplex: No evidence of hemodynamically significant stenosis in the ICA bilaterally. The flow in the vertebral arteries is antegrade bilaterally. (04/30/2006) C HOL: 108 (06/20/2010) LDL: 45 (06/20/2010) HDL: 30 (06/20/2010) T (06/20/2010) H gb: 15.7 (06/22/2009) HCT: 46.2 (06/22/2009) WBC: 7.1 (06/22/2009) B UN: 22.0 (06/20/2010) Creat: 1.47 (06/20/2010) Glucose: 89 (06/20/2010) N a+: 141 (06/20/2010) K+: 4.6 (06/20/2010) Cl: 107 (06/20/2010) PT: 11.2 (06/22/2009) INR: 1.1 (06/22/2009) Ector Fuentes MD routine : H is updated medication list for this problem includes: Simvastatin 20 Mg Tabs (Simvastatin) ..... One tab. daily BP today: 136/66 Prior BP: 133/75 (02/08/2011) C HOL: 108 (06/20/2010) LDL: 45 (06/20/2010) HDL: 30 (06/20/2010) T (06/20/2010) Ector Fuentes MD routine :will try to reduce his norvasc to 5 mg and see if that helps his swelling H is updated medication list for this problem includes: Aspirin 81 Mg Tabs (Aspirin) ..... One tab. daily Metoprolol Succinate 50 Mg Tb24 (Metoprolol succinate) ..... One tab. daily Amlodipine Besylate 10 Mg Tabs (Amlodipine besylate) ..... 1 tablet by mouth daily BP today: 136/66 P rior BP: 133/75 (02/08/2011) Labs Reviewed: C reat: 1.47 (06/20/2010) C hol: 108 (06/20/2010) HDL: 30 (06/20/2010) LDL: 45 (06/20/2010) T (06/20/2010) Ector Fuentes MD routine : H is updated medication list for this problem includes: Plavix 75 Mg Tabs (Clopidogrel bisulfate) ..... 1 tabelt by mouth daily Aspirin 81 Mg Tabs (Aspirin) ..... One tab. daily Metoprolol Succinate 50 Mg Tb24 (Metoprolol succinate) ..... One tab. daily Amlodipine Besylate 10 Mg Tabs (Amlodipine besylate) ..... 1 tablet by mouth daily Simvastatin 20 Mg Tabs (Simvastatin) ..... One tab. daily BP today: 136/66 Prior BP: 133/75 (02/08/2011) N uclear Stress Findings: Normal Beck protocol exercise tolerance test. Normal LV size and function with a EF 61%. Myocardial scintigraphy demonstrates inferior wall ischemia. (06/16/2009) C ardiac Cath: Nonobstructive CAD. Elevated LV diastolic pressure. LVH with hypertronic LV. EF 70%. [facility] [place] (06/30/2009) C ardiac Cath Comments: 3.0 x 20mm Taxus stent LAD (04/05/2006) C arotid Doppler/Duplex: No evidence of hemodynamically significant stenosis in the ICA bilaterally. The flow in the vertebral arteries is antegrade bilaterally. (04/30/2006) C HOL: 108 (06/20/2010) LDL: 45 (06/20/2010) HDL: 30 (06/20/2010) T (06/20/2010) H gb: 15.7 (06/22/2009) HCT: 46.2 (06/22/2009) WBC: 7.1 (06/22/2009) B UN: 22.0 (06/20/2010) Creat: 1.47 (06/20/2010) Glucose: 89 (06/20/2010) N a+: 141 (06/20/2010) K+: 4.6 (06/20/2010) Cl: 107 (06/20/2010) PT: 11.2 (06/22/2009) INR: 1.1 (06/22/2009) Ector Fuentes MD routine : H is updated medication list for this problem includes: Plavix 75 Mg Tabs (Clopidogrel bisulfate) ..... 1 tabelt by mouth daily Aspirin 81 Mg Tabs (Aspirin) ..... One tab. daily Metoprolol Succinate 50 Mg Tb24 (Metoprolol succinate) ..... One tab. daily Amlodipine Besylate 10 Mg Tabs (Amlodipine besylate) ..... 1 tablet by mouth daily BP today: 136/66 Prior BP: 133/75 (02/08/2011) N uclear Stress Findings: Normal Beck protocol exercise tolerance test. Normal LV size and function with a EF 61%. Myocardial scintigraphy demonstrates inferior wall ischemia. (06/16/2009) C ardiac Cath: Nonobstructive CAD. Elevated LV diastolic pressure. LVH with hypertronic LV. EF 70%. [facility] (06/30/2009) C ardiac Cath Comments: 3.0 x 20mm Taxus stent LAD (04/05/2006) C arotid Doppler/Duplex: No evidence of hemodynamically significant stenosis in the ICA bilaterally. The flow in the vertebral arteries is antegrade bilaterally. (04/30/2006) C HOL: 108 (06/20/2010) LDL: 45 (06/20/2010) HDL: 30 (06/20/2010) T (06/20/2010) H gb: 15.7 (06/22/2009) HCT: 46.2 (06/22/2009) WBC: 7.1 (06/22/2009) B UN: 22.0 (06/20/2010) Creat: 1.47 (06/20/2010) Glucose: 89 (06/20/2010) N a+: 141 (06/20/2010) K+: 4.6 (06/20/2010) Cl: 107 (06/20/2010) PT: 11.2 (06/22/2009) INR: 1.1 (06/22/2009) E chocardiogram: Normal left ventricular systolic function. Mild enlargement of left ventricular chamber. There is borderline left ventricular hypertrophy. There is E to A wave reversal consistent with impaired LV relaxation. Abnormal E/E`, suggestive of elevated L VEDP.14.0. Left ventricular ejection fraction is estimated at 60%. Mild aortic stenosis. Moderate to severe aortic valve regurgitation. Peak AV velocity: 2.13 m/s. The Aortic Valve Peak Gradient is 18.00 mmHg. The Aortic Valve Mean Gradient is 11.00 mmHg. The VELVET is 2.3 cm2. - (03/06/2011) Orders: Sancho CRUZ ([id number]) Ector Fuentes MD routine : H is updated medication list for this problem includes: Plavix 75 Mg Tabs (Clopidogrel bisulfate) ..... 1 tabelt by mouth daily Aspirin 81 Mg Tabs (Aspirin) ..... One tab. daily Metoprolol Succinate 50 Mg Tb24 (Metoprolol succinate) ..... One tab. daily Amlodipine Besylate 10 Mg Tabs (Amlodipine besylate) ..... 1 tablet by mouth daily BP today: 136/66 Prior BP: 133/75 (02/08/2011) N uclear Stress Findings: Normal Beck protocol exercise tolerance test. Normal LV size and function with a EF 61%. Myocardial scintigraphy demonstrates inferior wall ischemia. (06/16/2009) C ardiac Cath: Nonobstructive CAD. Elevated LV diastolic pressure. LVH with hypertronic LV. EF 70%. [facility] (06/30/2009) C ardiac Cath Comments: 3.0 x 20mm Taxus stent LAD (04/05/2006) C arotid Doppler/Duplex: No evidence of hemodynamically significant stenosis in the ICA bilaterally. The flow in the vertebral arteries is antegrade bilaterally. (04/30/2006) C HOL: 108 (06/20/2010) LDL: 45 (06/20/2010) HDL: 30 (06/20/2010) T (06/20/2010) H gb: 15.7 (06/22/2009) HCT: 46.2 (06/22/2009) WBC: 7.1 (06/22/2009) B UN: 22.0 (06/20/2010) Creat: 1.47 (06/20/2010) Glucose: 89 (06/20/2010) N a+: 141 (06/20/2010) K+: 4.6 (06/20/2010) Cl: 107 (06/20/2010) PT: 11.2 (06/22/2009) INR: 1.1 (06/22/2009) E chocardiogram: Normal left ventricular systolic function. Mild enlargement of left ventricular chamber. There is borderline left ventricular hypertrophy. There is E to A wave reversal consistent with impaired LV relaxation. Abnormal E/E`, suggestive of elevated L VEDP.14.0. Left ventricular ejection fraction is estimated at 60%. Mild aortic stenosis. Moderate to severe aortic valve regurgitation. Peak AV velocity: 2.13 m/s. The Aortic Valve Peak Gradient is 18.00 mmHg. The Aortic Valve Mean Gradient is 11.00 mmHg. The VELVET is 2.3 cm2. - (03/06/2011) Ector Fuentes MD routine : H is updated medication list for this problem includes: Aspirin 81 Mg Tabs (Aspirin) ..... One tab. daily Metoprolol Succinate 50 Mg Tb24 (Metoprolol succinate) ..... One tab. daily Amlodipine Besylate 10 Mg Tabs (Amlodipine besylate) ..... 1 tablet by mouth daily BP today: 133/75 P rior BP: 137/74 (02/09/2010) Labs Reviewed: C reat: 1.47 (06/20/2010) C hol: 108 (06/20/2010) HDL: 30 (06/20/2010) LDL: 45 (06/20/2010) T (06/20/2010) Ector Fuentes MD routine :Please adju st cholesterol medication to keep LDL less than 70 and HDL greater than 50 H is updated medication list for this problem includes: Simvastatin 20 Mg Tabs (Simvastatin) ..... One tab. daily BP today: 133/75 Prior BP: 137/74 (02/09/2010) C HOL: 108 (06/20/2010) LDL: 45 (06/20/2010) HDL: 30 (06/20/2010) T (06/20/2010) Ector Fuentes MD routine : H is updated medication list for this problem includes: Aspirin 81 Mg Tabs (Aspirin) ..... One tab. daily Metoprolol Succinate 50 Mg Tb24 (Metoprolol succinate) ..... One tab. daily Amlodipine Besylate 10 Mg Tabs (Amlodipine besylate) ..... 1 tablet by mouth daily BP today: 133/75 P rior BP: 137/74 (02/09/2010) Labs Reviewed: C reat: 1.47 (06/20/2010) C hol: 108 (06/20/2010) HDL: 30 (06/20/2010) LDL: 45 (06/20/2010) T (06/20/2010) Ector Fuentes MD routine : H is updated medication list for this problem includes: Plavix 75 Mg Tabs (Clopidogrel bisulfate) ..... 1 tabelt by mouth daily Aspirin 81 Mg Tabs (Aspirin) ..... One tab. daily Metoprolol Succinate 50 Mg Tb24 (Metoprolol succinate) ..... One tab. daily Amlodipine Besylate 10 Mg Tabs (Amlodipine besylate) ..... 1 tablet by mouth daily Simvastatin 20 Mg Tabs (Simvastatin) ..... One tab. daily BP today: 133/75 Prior BP: 137/74 (02/09/2010) N uclear Stress Findings: Normal Beck protocol exercise tolerance test. Normal LV size and function with a EF 61%. Myocardial scintigraphy demonstrates inferior wall ischemia. GC (06/16/2009) C ardiac Cath: Nonobstructive CAD. Elevated LV diastolic pressure. LVH with hypertronic LV. EF 70%. [facility] [place] (06/30/2009) C ardiac Cath Comments: 3.0 x 20mm Taxus stent LAD (04/05/2006) C arotid Doppler/Duplex: No evidence of hemodynamically significant stenosis in the ICA bilaterally. The flow in the vertebral arteries is antegrade bilaterally. (04/30/2006) C HOL: 108 (06/20/2010) LDL: 45 (06/20/2010) HDL: 30 (06/20/2010) T (06/20/2010) H gb: 15.7 (06/22/2009) HCT: 46.2 (06/22/2009) WBC: 7.1 (06/22/2009) B UN: 22.0 (06/20/2010) Creat: 1.47 (06/20/2010) Glucose: 89 (06/20/2010) N a+: 141 (06/20/2010) K+: 4.6 (06/20/2010) Cl: 107 (06/20/2010) PT: 11.2 (06/22/2009) INR: 1.1 (06/22/2009) Ector Fuentes MD routine : H is updated medication list for this problem includes: Plavix 75 Mg Tabs (Clopidogrel bisulfate) ..... 1 tabelt by mouth daily Aspirin 81 Mg Tabs (Aspirin) ..... One tab. daily Metoprolol Succinate 50 Mg Tb24 (Metoprolol succinate) ..... One tab. daily Amlodipine Besylate 10 Mg Tabs (Amlodipine besylate) ..... 1 tablet by mouth daily BP today: 133/75 Prior BP: 137/74 (02/09/2010) N uclear Stress Findings: Normal Beck protocol exercise tolerance test. Normal LV size and function with a EF 61%. Myocardial scintigraphy demonstrates inferior wall ischemia. (06/16/2009) C ardiac Cath: Nonobstructive CAD. Elevated LV diastolic pressure. LVH with hypertronic LV. EF 70%. [facility] (06/30/2009) C ardiac Cath Comments: 3.0 x 20mm Taxus stent LAD (04/05/2006) C arotid Doppler/Duplex: No evidence of hemodynamically significant stenosis in the ICA bilaterally. The flow in the vertebral arteries is antegrade bilaterally. (04/30/2006) C HOL: 108 (06/20/2010) LDL: 45 (06/20/2010) HDL: 30 (06/20/2010) T (06/20/2010) H gb: 15.7 (06/22/2009) HCT: 46.2 (06/22/2009) WBC: 7.1 (06/22/2009) B UN: 22.0 (06/20/2010) Creat: 1.47 (06/20/2010) Glucose: 89 (06/20/2010) N a+: 141 (06/20/2010) K+: 4.6 (06/20/2010) Cl: 107 (06/20/2010) PT: 11.2 (06/22/2009) INR: 1.1 (06/22/2009) E chocardiogram: Normal left ventricular systolic function. Normal left ventricular size. Normal left ventricular wall thickness. There is E to A wave reversal consistent with impaired LV relaxation. Normal E/E` 4.0. Left ventricular ejection fraction is estimated at 55%. Normal aortic root. No significant valvular abnormalities. (12/01/2009) Ector Fuentes MD 6 month follow-up: H is updated medication list for this problem includes: Plavix 75 Mg Tabs (Clopidogrel bisulfate) ..... 1 tabelt by mouth daily Aspirin 81 Mg Tabs (Aspirin) ..... One tab. daily Metoprolol Succinate 50 Mg Tb24 (Metoprolol succinate) ..... One tab. daily Simvastatin 40 Mg Tabs (Simvastatin) ..... One tablet daily Amlodipine Besylate 10 Mg Tabs (Amlodipine besylate) ..... 1 tablet by mouth daily Ector Fuentes MD 6 month follow-up:has not lost m uch weight. Ector Fuentes MD 6 month follow-up: H is updated medication list for this problem includes: Aspirin 81 Mg Tabs (Aspirin) ..... One tab. daily Metoprolol Succinate 50 Mg Tb24 (Metoprolol succinate) ..... One tab. daily Amlodipine Besylate 10 Mg Tabs (Amlodipine besylate) ..... 1 tablet by mouth daily Ector Fuentes MD 6 month follow-up: H is updated medication list for this problem includes: Plavix 75 Mg Tabs (Clopidogrel bisulfate) ..... 1 tabelt by mouth daily Aspirin 81 Mg Tabs (Aspirin) ..... One tab. daily Metoprolol Succinate 50 Mg Tb24 (Metoprolol succinate) ..... One tab. daily Amlodipine Besylate 10 Mg Tabs (Amlodipine besylate) ..... 1 tablet by mouth daily n o further chest pain Ector Fuentes MD Hosp FU: H is updated medication list for this problem includes: Plavix 75 Mg Tabs (Clopidogrel bisulfate) ..... 1 tabelt by mouth daily Aspirin 81 Mg Tabs (Aspirin) ..... One tab. daily Metoprolol Succinate 50 Mg Tb24 (Metoprolol succinate) ..... One tab. daily Simvastatin 40 Mg Tabs (Simvastatin) ..... One tablet daily Amlodipine Besylate 10 Mg Tabs (Amlodipine besylate) ..... 1 tablet by mouth daily Ector Fuentes MD Hosp [facility] Ector Fuentes MD Hosp [facility]U: H is updated medication list for this problem includes: Aspirin 81 Mg Tabs (Aspirin) ..... One tab. daily Metoprolol Succinate 50 Mg Tb24 (Metoprolol succinate) ..... One tab. daily Amlodipine Besylate 10 Mg Tabs (Amlodipine besylate) ..... 1 tablet by mouth daily Ector Fuentes MD Hosp FU: H is updated medication list for this problem includes: Plavix 75 Mg Tabs (Clopidogrel bisulfate) ..... 1 tabelt by mouth daily Aspirin 81 Mg Tabs (Aspirin) ..... One tab. daily Metoprolol Succinate 50 Mg Tb24 (Metoprolol succinate) ..... One tab. daily Amlodipine Besylate 10 Mg Tabs (Amlodipine besylate) ..... 1 tablet by mouth daily h e had a cc because of an abnormal stress test but had non-obstructive cad on cath. i s clear for surgery and is low risk Ector Fuentes MD 6 month follow-up: H is updated medication list for this problem includes: Plavix 75 Mg Tabs (Clopidogrel bisulfate) ..... 1 tabelt by mouth daily Aspirin 81 Mg Tabs (Aspirin) ..... One tab. daily Metoprolol Succinate 50 Mg Tb24 (Metoprolol succinate) ..... One tab. daily Simvastatin 40 Mg Tabs (Simvastatin) ..... One tablet daily Amlodipine Besylate 10 Mg Tabs (Amlodipine besylate) ..... 1 tablet by mouth daily BP today: 146/81 Prior BP: 144/81 (12/09/2008) N uclear Stress Findings: Normal myocardial perfusion SPECT imaging showing no area of infarction or ischemia. (07/30/2007) C ardiac Cath: Elevated LVDP. Normal LV function. The infarcted artery was the LAD with mid 90% lesion, BOZENA II flow. EF 65-70%. PTCA and stent of mid LAD. (04/05/2006) Cardiac Cath Comments: 3.0 x 20mm Taxus stent LAD (04/05/2006) C arotid Doppler/Duplex: No evidence of hemodynamically significant stenosis in the ICA bilaterally. The flow in the vertebral arteries is antegrade bilaterally. (04/30/2006) Ector Fuentes MD 6 month follow-up: H is updated medication list for this problem includes: Simvastatin 40 Mg Tabs (Simvastatin) ..... One tablet daily BP today: 146/81 Prior BP: 144/81 (12/09/2008) Orders: [place] Test - Nuclear ([id number]) Ector Fuentes MD 6 month follow-up: O rders: S tress Test - Nuclear ([id number]) Ector Fuentes MD 6 month follow-up: H is updated medication list for this problem includes: Aspirin 81 Mg Tabs (Aspirin) ..... One tab. daily Metoprolol Succinate 50 Mg Tb24 (Metoprolol succinate) ..... One tab. daily Amlodipine Besylate 10 Mg Tabs (Amlodipine besylate) ..... 1 tablet by mouth daily BP today: 146/81 P rior BP: 144/81 (12/09/2008) Ector Fuentes MD post kidney surgery : H is updated medication list for this problem includes: Plavix 75 Mg Tabs (Clopidogrel bisulfate) ..... Od Aspirin 81 Mg Tabs (Aspirin) ..... One tab. daily Simvastatin 40 Mg Tabs (Simvastatin) ..... One tablet daily Metoprolol Succinate 25 Mg Tb24 (Metoprolol succinate) ..... 1 tablet by mouth twice daily Amlodipine Besylate 10 Mg Tabs (Amlodipine besylate) ..... 1 tablet by mouth daily BP today: 144/81 Prior BP: 155/89 (11/19/2008) N uclear Stress Findings: Normal myocardial perfusion SPECT imaging showing no area of infarction or ischemia. (07/30/2007) C ardiac Cath: Elevated LVDP. Normal LV function. The infarcted artery was the LAD with mid 90% lesion, BOZENA II flow. EF 65-70%. PTCA and stent of mid LAD. (04/05/2006) C ardiac Cath Comments: 3.0 x 20mm Taxus stent LAD (04/05/2006) C arotid Doppler/Duplex: No evidence of hemodynamically significant stenosis in the ICA bilaterally. The flow in the vertebral arteries is antegrade bilaterally. 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 he had an echo which showed normal fx. he is feeling fine and no chest pains. could just have been a type 2 [place]. Ector Fuentes MD post kidney surgery : T he following medications were removed from the medication list: Tekturna 300 Mg Tabs (Aliskiren fumarate) ..... 1 tablet by mouth once daily His updated medication list for this problem includes: Aspirin 81 Mg Tabs (Aspirin) ..... One tab. daily Metoprolol Succinate 25 Mg Tb24 (Metoprolol succinate) ..... 1 tablet by mouth twice daily Amlodipine Besylate 10 Mg Tabs (Amlodipine besylate) ..... 1 tablet by mouth daily BP today: 144/81 P rior BP: 155/89 (11/19/2008) Ector Fuentes MD post kidney surgery : H is updated medication list for this problem includes: Simvastatin 40 Mg Tabs (Simvastatin) ..... One tablet daily BP today: 144/81 Prior BP: 155/89 (11/19/2008) Ector Fuentes MD post kidney surgery : H is updated medication list for this problem includes: Plavix 75 Mg Tabs (Clopidogrel bisulfate) ..... Od Aspirin 81 Mg Tabs (Aspirin) ..... One tab. daily Metoprolol Succinate 25 Mg Tb24 (Metoprolol succinate) ..... 1 tablet by mouth twice daily Amlodipine Besylate 10 Mg Tabs (Amlodipine besylate) ..... 1 tablet by mouth daily BP today: 144/81 Prior BP: 155/89 (11/19/2008) N uclear Stress Findings: Normal myocardial perfusion SPECT imaging showing no area of infarction or ischemia. (07/30/2007) C ardiac Cath: Elevated LVDP. Normal LV function. The infarcted artery was the LAD with mid 90% lesion, BOZENA II flow. EF 65-70%. PTCA and stent of mid LAD. (04/05/2006) C ardiac Cath Comments: 3.0 x 20mm Taxus stent LAD (04/05/2006) Carotid Doppler/Duplex: No evidence of hemodynamically significant stenosis in the ICA bilaterally. The flow in the vertebral arteries is antegrade bilaterally. (04/30/2006) E chocardiogram: Normal left ventricular wall thickness.The left ventricle is mildly enlarged. Normal left ventricular function. LV EF is estimated at 60% There is E: A reversal of mitral inflow velocities consistent with diastolic dysfunction. Mild left atrial enlargement.The mitral valve leaflets appear (sclerotic) thickened. The aortic valve appears mildly thickened (sclerotic). Minimal mitral regurgitation. ( 1+) Mild aortic regurgitation. No evidence of tricuspid valve regurgitation. No evidence of pulmonic valve regurgitation. (07/21/2008) Ector Fuentes MD post kidney surgery : T he following medications were removed from the medication list: Tekturna 300 Mg Tabs (Aliskiren fumarate) ..... 1 tablet by mouth once daily His updated medication list for this problem includes: Aspirin 81 Mg Tabs (Aspirin) ..... One tab. daily Metoprolol Succinate 25 Mg Tb24 (Metoprolol succinate) ..... 1 tablet by mouth twice daily Amlodipine Besylate 10 Mg Tabs (Amlodipine besylate) ..... 1 tablet by mouth daily BP today: 144/81 P rior BP: 155/89 (11/19/2008) Ector Fuentes MD post kidney surgery : T he following medications were removed from the medication list: Tekturna 300 Mg Tabs (Aliskiren fumarate) ..... 1 tablet by mouth once daily His updated medication list for this problem includes: Aspirin 81 Mg Tabs (Aspirin) ..... One tab. daily Metoprolol Succinate 25 Mg Tb24 (Metoprolol succinate) ..... 1 tablet by mouth twice daily Amlodipine Besylate 10 Mg Tabs (Amlodipine besylate) ..... 1 tablet by mouth daily BP today: 144/81 P rior BP: 155/89 (11/19/2008) Ector Fuentes MD problem with Coreg-p re surg: T he following medications were removed from the medication list: Coreg 6.25 Mg Tabs (Carvedilol) ..... One tab. twice daily His updated medication list for this problem includes: Plavix 75 Mg Tabs (Clopidogrel bisulfate) ..... Od Aspirin 81 Mg Tabs (Aspirin) ..... One tab. daily Metoprolol Succinate 25 Mg Tb24 (Metoprolol succinate) ..... 1 tablet by mouth twice daily Amlodipine Besylate 10 Mg Tabs (Amlodipine besylate) ..... 1 tablet by mouth daily BP today: 155/89 Prior BP: 164/94 (11/04/2008) N uclear Stress Findings: Normal myocardial perfusion SPECT imaging showing no area of infarction or ischemia. (07/30/2007) C ardiac Cath: Elevated LVDP. Normal LV function. The infarcted artery was the LAD with mid 90% lesion, BOZENA II flow. EF 65-70%. PTCA and stent of mid LAD. (04/05/2006) C ardiac Cath Comments: 3.0 x 20mm Taxus stent LAD (04/05/2006) C arotid Doppler/Duplex: No evidence of hemodynamically significant stenosis in the ICA bilaterally. The flow in the vertebral arteries is antegrade bilaterally. (04/30/2006) E chocardiogram: Normal left ventricular wall thickness.The left ventricle is mildly enlarged. Normal left ventricular function. LV EF is estimated at 60% There is E: A reversal of mitral inflow velocities consistent with diastolic dysfunction. Mild left atrial enlargement.The mitral valve leaflets appear (sclerotic) thickened. The aortic valve appears mildly thickened (sclerotic). Minimal mitral regurgitation. ( 1+) Mild aortic regurgitation. No evidence of tricuspid valve regurgitation. No evidence of pulmonic valve regurgitation. (07/21/2008) Ector Fuentes MD problem with Coreg-pre surg Dee Fuentes MD problem with Coreg-p re surg: T he following medications were removed from the medication list: Coreg 6.25 Mg Tabs (Carvedilol) ..... One tab. twice daily Hyzaar 100-12.5 Mg Tabs (Losartan potassium-hctz) ..... One tab. daily His updated medication list for this problem includes: Aspirin 81 Mg Tabs (Aspirin) ..... One tab. daily Tekturna 300 Mg Tabs (Aliskiren fumarate) ..... 1 tablet by mouth once daily Metoprolol Succinate 25 Mg Tb24 (Metoprolol succinate) ..... 1 tablet by mouth twice daily Amlodipine Besylate 10 Mg Tabs (Amlodipine besylate) ..... 1 tablet by mouth daily BP today: 155/89 P rior BP: 164/94 (11/04/2008) w ill wait till he has surgery and re-evaluate the bp. Ector Fuentes MD problem with Coreg-p re surg: T he following medications were removed from the medication list: Coreg 6.25 Mg Tabs (Carvedilol) ..... One tab. twice daily Hyzaar 100-12.5 Mg Tabs (Losartan potassium-hctz) ..... One tab. daily His updated medication list for this problem includes: Aspirin 81 Mg Tabs (Aspirin) ..... One tab. daily Tekturna 300 Mg Tabs (Aliskiren fumarate) ..... 1 tablet by mouth once daily Metoprolol Succinate 25 Mg Tb24 (Metoprolol succinate) ..... 1 tablet by mouth twice daily Amlodipine Besylate 10 Mg Tabs (Amlodipine besylate) ..... 1 tablet by mouth daily BP today: 155/89 P rior BP: 164/94 (11/04/2008) Ector Fuentes MD 3 month follow-up: T he following medications were removed from the medication list: Zocor 20 Mg Tabs (Simvastatin) ..... One tab. at bedtime His updated medication list for this problem includes: Plavix 75 Mg Tabs (Clopidogrel bisulfate) ..... Od Aspirin 81 Mg Tabs (Aspirin) ..... One tab. daily Toprol Xl 25 Mg Tb24 (Metoprolol succinate) ..... 1 tablet by mouth twice daily Simvastatin 40 Mg Tabs (Simvastatin) ..... One tablet daily BP today: 164/94 Prior BP: 147/85 (08/05/2008) N uclear Stress Findings: Normal myocardial perfusion SPECT imaging showing no area of infarction or ischemia. (07/30/2007) C ardiac Cath: Elevated LVDP. Normal LV function. The infarcted artery was the LAD with mid 90% lesion, BOZENA II flow. EF 65-70%. PTCA and stent of mid LAD. (04/05/2006) C ardiac Cath Comments: 3.0 x 20mm Taxus stent LAD (04/05/2006) C arotid Doppler/Duplex: No evidence of hemodynamically significant stenosis in the ICA bilaterally. The flow in the vertebral arteries is antegrade bilaterally. (04/30/2006) Ector Fuentes MD 3 month follow-up: H is updated medication list for this problem includes: Aspirin 81 Mg Tabs (Aspirin) ..... One tab. daily Toprol Xl 25 Mg Tb24 (Metoprolol succinate) ..... 1 tablet by mouth twice daily Hyzaar 100-12.5 Mg Tabs (Losartan potassium-hctz) ..... One tab. daily Tekturna 300 Mg Tabs (Aliskiren fumarate) ..... 1 tablet by mouth once daily BP today: 164/94 P rior BP: 147/85 (08/05/2008) s till high.sometimes kidney tumors can lead to htn and so will treat with more meds post surgery if still high. Ector Fuentes MD 3 month follow-up: T he following medications were removed from the medication list: Zocor 20 Mg Tabs (Simvastatin) ..... One tab. at bedtime His updated medication list for this problem includes: Simvastatin 40 Mg Tabs (Simvastatin) ..... One tablet daily Ector Fuentes MD 3 month follow-up: H is updated medication list for this problem includes: Plavix 75 Mg Tabs (Clopidogrel bisulfate) ..... Od Aspirin 81 Mg Tabs (Aspirin) ..... One tab. daily Toprol Xl 25 Mg Tb24 (Metoprolol succinate) ..... 1 tablet by mouth twice daily BP today: 164/94 Prior BP: 147/85 (08/05/2008) N uclear Stress Findings: Normal myocardial perfusion SPECT imaging showing no area of infarction or ischemia. (07/30/2007) C ardiac Cath: Elevated LVDP. Normal LV function. The infarcted artery was the LAD with mid 90% lesion, BOZENA II flow. EF 65-70%. PTCA and stent of mid LAD. (04/05/2006) C ardiac Cath Comments: 3.0 x 20mm Taxus stent LAD (04/05/2006) C arotid Doppler/Duplex: No evidence of hemodynamically significant stenosis in the ICA bilaterally. The flow in the vertebral arteries is antegrade bilaterally. (04/30/2006) E chocardiogram: Normal left ventricular wall thickness.The left ventricle is mildly enlarged. Normal left ventricular function. LV EF is estimated at 60% There is E: A reversal of mitral inflow velocities consistent with diastolic dysfunction. Mild left atrial enlargement.The mitral valve leaflets appear (sclerotic) thickened. The aortic valve appears mildly thickened (sclerotic). Minimal mitral regurgitation. ( 1+) Mild aortic regurgitation. No evidence of tricuspid valve regurgitation. No evidence of pulmonic valve regurgitation. (07/21/2008) h e is feeling fine. he is low risk for surgery and to proceed with the partial nephrectomy. Ector Fuentes MD office visit: H is updated medication list for this problem includes: Plavix 75 Mg Tabs (Clopidogrel bisulfate) ..... Od Simvastatin 40 Mg Tabs (Simvastatin) ..... One tablet daily Aspirin 81 Mg Tabs (Aspirin) ..... One tab. daily Toprol Xl 25 Mg Tb24 (Metoprolol succinate) ..... Daily Zocor 20 Mg Tabs (Simvastatin) ..... One tab. at bedtime BP today: 147/85 Prior BP: 138/80 (07/08/2008) N uclear Stress Findings: Normal myocardial perfusion SPECT imaging showing no area of infarction or ischemia. (07/30/2007) C ardiac Cath: Elevated LVDP. Normal LV function. The infarcted artery was the LAD with mid 90% lesion, BOZENA II flow. EF 65-70%. PTCA and stent of mid LAD. (04/05/2006) C ardiac Cath Comments: 3.0 x 20mm Taxus stent LAD (04/05/2006) C arotid Doppler/Duplex: No evidence of hemodynamically significant stenosis in the ICA bilaterally. The flow in the vertebral arteries is antegrade bilaterally. (04/30/2006) Ector Fuentes MD office visit: H is updated medication list for this problem includes: Plavix 75 Mg Tabs (Clopidogrel bisulfate) ..... Od Simvastatin 40 Mg Tabs (Simvastatin) ..... One tablet daily Aspirin 81 Mg Tabs (Aspirin) ..... One tab. daily Toprol Xl 25 Mg Tb24 (Metoprolol succinate) ..... Daily Zocor 20 Mg Tabs (Simvastatin) ..... One tab. at bedtime BP today: 147/85 Prior BP: 138/80 (07/08/2008) N uclear Stress Findings: Normal myocardial perfusion SPECT imaging showing no area of infarction or ischemia. (07/30/2007) C ardiac Cath: Elevated LVDP. Normal LV function. The infarcted artery was the LAD with mid 90% lesion, BOZENA II flow. EF 65-70%. PTCA and stent of mid LAD. (04/05/2006) C ardiac Cath Comments: 3.0 x 20mm Taxus stent LAD (04/05/2006) C arotid Doppler/Duplex: No evidence of hemodynamically significant stenosis in the ICA bilaterally. The flow in the vertebral arteries is antegrade bilaterally. (04/30/2006) Ector Fuentes MD office visit: H is updated medication list for this problem includes: Aspirin 81 Mg Tabs (Aspirin) ..... One tab. daily Toprol Xl 25 Mg Tb24 (Metoprolol succinate) ..... Daily Hyzaar 100-12.5 Mg Tabs (Losartan potassium-hctz) ..... One tab. daily BP today: 147/85 P rior BP: 138/80 (07/08/2008) Ector Fuentes MD office visit: H is updated medication list for this problem includes: Simvastatin 40 Mg Tabs (Simvastatin) ..... One tablet daily Zocor 20 Mg Tabs (Simvastatin) ..... One tab. at bedtime BP today: 147/85 Prior BP: 138/80 (07/08/2008) Ector Fuentes MD office visit: H is updated medication list for this problem includes: Plavix 75 Mg Tabs (Clopidogrel bisulfate) ..... Od Aspirin 81 Mg Tabs (Aspirin) ..... One tab. daily Toprol Xl 25 Mg Tb24 (Metoprolol succinate) ..... Daily BP today: 147/85 Prior BP: 138/80 (07/08/2008) N uclear Stress Findings: Normal myocardial perfusion SPECT imaging showing no area of infarction or ischemia. (07/30/2007) C ardiac Cath: Elevated LVDP. Normal LV function. The infarcted artery was the LAD with mid 90% lesion, BOZENA II flow. EF 65-70%. PTCA and stent of mid LAD. (04/05/2006) Cardiac Cath Comments: 3.0 x 20mm Taxus stent LAD (04/05/2006) C arotid Doppler/Duplex: No evidence of hemodynamically significant stenosis in the ICA bilaterally. The flow in the vertebral arteries is antegrade bilaterally. (04/30/2006) E chocardiogram: Normal left ventricular wall thickness.The left ventricle is mildly enlarged. Normal left ventricular function. LV EF is estimated at 60% There is E: A reversal of mitral inflow velocities consistent with diastolic dysfunction. Mild left atrial enlargement.The mitral valve leaflets appear (sclerotic) thickened. The aortic valve appears mildly thickened (sclerotic). Minimal mitral regurgitation. ( 1+) Mild aortic regurgitation. No evidence of tricuspid valve regurgitation. No evidence of pulmonic valve regurgitation. (07/21/2008) Ector Fuentes MD routine:weight loss. Ector gauthier MD routine: H is updated medication list for this problem includes: Plavix 75 Mg Tabs (Clopidogrel bisulfate) ..... Od Simvastatin 40 Mg Tabs (Simvastatin) ..... One tablet daily Aspirin 81 Mg Tabs (Aspirin) ..... One tab. daily Toprol Xl 25 Mg Tb24 (Metoprolol succinate) ..... Daily Norvasc 10 Mg Tabs (Amlodipine besylate) ..... Once daily Zocor 20 Mg Tabs (Simvastatin) ..... One tab. at bedtime BP today: 138/80 Prior BP: / () N uclear Stress Findings: Normal myocardial perfusion SPECT imaging showing no area of infarction or ischemia. (07/30/2007) Cardiac Cath: Elevated LVDP. Normal LV function. The infarcted artery was the LAD with mid 90% lesion, BOZENA II flow. EF 65-70%. PTCA and stent of mid LAD. (04/05/2006) C ardiac Cath Comments: 3.0 x 20mm Taxus stent LAD (04/05/2006) C arotid Doppler/Duplex: No evidence of hemodynamically significant stenosis in the ICA bilaterally. The flow in the vertebral arteries is antegrade bilaterally. (04/30/2006) Ector Fuentes MD routine: H is updated medication list for this problem includes: Plavix 75 Mg Tabs (Clopidogrel bisulfate) ..... Od Simvastatin 40 Mg Tabs (Simvastatin) ..... One tablet daily Aspirin 81 Mg Tabs (Aspirin) ..... One tab. daily Toprol Xl 25 Mg Tb24 (Metoprolol succinate) ..... Daily Norvasc 10 Mg Tabs (Amlodipine besylate) ..... Once daily Zocor 20 Mg Tabs (Simvastatin) ..... One tab. at bedtime BP today: 138/80 Prior BP: / () N uclear Stress Findings: Normal myocardial perfusion SPECT imaging showing no area of infarction or ischemia. (07/30/2007) Cardiac Cath: Elevated LVDP. Normal LV function. The infarcted artery was the LAD with mid 90% lesion, BOZENA II flow. EF 65-70%. PTCA and stent of mid LAD. (04/05/2006) C ardiac Cath Comments: 3.0 x 20mm Taxus stent LAD (04/05/2006) C arotid Doppler/Duplex: No evidence of hemodynamically significant stenosis in the ICA bilaterally. The flow in the vertebral arteries is antegrade bilaterally. (04/30/2006) Ector Fuentes MD Date Name BASIC METABOLIC PANE L W/EGFR PROBNP, N TERMINAL Complete Echo Stress Regadenoson Holter Monitor 24 Hr Complete Echo Complete Echo Stress Regadenoson Complete Echo Complete Echo Complete Echo BASIC METABOLIC PANE L W/EGFR Complete Echo Complete Echo Mobile Cardiac Tele LIPID PANEL Complete Echo Carotid Duplex Bilat eral Complete Echo Complete Echo Complete Echo Complete Echo Stress Test - Nuclea r Complete Echo AST ALT LIPID PANEL Complete Echo HISTORY OF PROCEDURES Procedure Date Procedure Name Provider Procedure Notes S tatus EKG Ector Fuentes MD completed Complex e/m visit add on Ector Fuentes MD completed Complex e/m visit add on Ector Fuentes MD completed Complex e/m visit add on Ector Fuentes MD completed EKG Ector Fuentes MD completed EKG Ector Fuentes MD completed Regadenoson, 4 units Ector Fuentes MD completed Cardiolite, 2 units Ector Fuentes MD completed SPECT Images Ector Fuentes MD complet ed Stress EKG Ector Fuentes MD completed EKG Ector Fuentes MD completed EKG Ector Fuentes MD completed SNOMED-CT: [id number] Physical Exam, Performed: Pulse Exam of Foot Ector Fuentes MD completed EKG Ector Fuentes MD completed SNOMED-CT: [id number] Current Medications Documented Ector Fuentes MD completed SNOMED-CT: 73402084 Physical Exam, Performed: Pulse Exam of Foot Ector Fuentes MD completed EKG Ector Fuentes MD completed SNOMED-CT: [id number] Current Medications Documented Ector Fuentes MD completed SNOMED-CT: [id number] Physical Exam, Performed: Pulse Exam of Foot Ector Fuentes MD completed SNOMED-CT: 740950180 [id number] Current Medications Documented Ector Fuentes MD completed SNOMED-CT: [id number] Physical Exam, Performed: Pulse Exam of Foot Ector Fuentes MD completed SNOMED-CT: [id number] Current Medications Documented Ector Fuentes MD completed SNOMED-CT: [id number] Smoking Cessation Counseling Ector Fuentes MD completed SNOMED-CT: [id number] Current Medications Documented Ector Fuentes MD completed EKG Ector Fuentes MD completed EKG Ector Fuentes MD completed EKG Ector Fuentes MD completed
--- OUTSIDE RECORDS SUMMARY | 2025-03-16 14:11 | XMS_ITS | Clinical Summary ---
Author Organization [facility] Address [address] [place] [phone] Phone Care Team Providers Care Forming Machine Operator Name Role Phone Jorge Luis Morales MD Primary Care Provider [phone] Allergies Active Allergy Reactions Criticality Noted Date Comments Azithromycin Rash,Hives,Swelling, Othe r (see comments) High 06/08/2009 Other reaction(s): Other Lumps in neck, distorted hearing, rash from head to toe Other reaction(s): Redness Lumps in neck, distorted hearing, rash from head to toe Carvedilol Irregular Heart Rate,Other (see comments) High 06/08/2009 Other reaction(s): Other BETA ABEL Reaction: Arrhythmia, Reaction: Arrhythmia, Erythromycin Other (see comments),Rash,Hives High 11/29/2021 Other reaction(s): Flushing (skin) Reaction: Rash, Veronica syndrome, Reaction: Rash, Other, Veronica syndrome, Etodolac Diarrhea Low 11/29/2021 Lisinopril Cough Medium 06/22/2015 SUZANNE INHIBITOR Losartan Other (see comments),Unknown Low 11/29/2021 [employer]NE IN[employer] Medications Eliquis 5 MG tablet Take 5 mg by mouth 2 (two) times a day 2 Active aspirin (ST DINH) 81 MG EC tablet Aspir-81 mg tablet,delayed release Take 1 tablet every day by oral route for 90 days. 9 Active atorvastatin (LIPITOR) 10 MG tablet Take 5 mg by mouth 1 (one) time each day 2 Active furosemide (LASIX) 40 MG tablet Take 40 mg by mouth 1 (one) time each day 2 Active Glucosamine Sulfate 500 MG tablet every 12 hours Activ e Magnesium Oxide 500 MG tablet magnesium oxide 500 mg tablet Take 1 tablet every day by oral route. 8 Active Multiple Vitamin (multivitamin) capsule Take 1 capsule by mouth daily Active venlafaxine (EFFEXOR) 37.5 MG tablet Take 37.5 mg by mouth 1 (one) time each day with food 2 Active Calcium Citrate 250 MG tablet Take by mouth 2 (two) times a day Active amLODIPine (NORVASC) 2.5 MG tablet Take 2.5 mg by mouth in the morning and 2.5 mg in the evening. Active Lutein 20 MG tablet Take by mouth 1 (one) time each day Active Active Problems Problem Noted Date Diagnosed Date Palpitations 07/04/2022 Proteinuria 07/04/2022 History of malignant neoplasm of kidney 05/08/20 Backache 05/08/2022 Coronary arteriosclerosis 05/08/2022 Depressive disorder 05/08/2022 Disorder of bone 05/08/2022 Dysuria 05/08/2022 Essential hypertension 05/08/2022 Essential (primary) hypertension 05/08/2022 Iritis 05/08/2022 Lipoma (clinical) 05/08/2022 Malignant tumor of kidney 05/08/2022 Prostatitis 05/08/2022 Scrotal mass 05/08/2022 Tomography - chest abnormal 05/08/2022 Urinary tract infectious disease 05/08/2022 Chronic renal failure 03/27/2022 Serum creatinine raised 02/16/2022 Anti-nuclear factor positive 02/05/2022 Multiple nodules of lung 02/05/2022 Deep venous thrombosis 01/31/2022 Deep venous thrombosis of lower extremity 2021 Localized swelling of right lower leg 12/19/2021 Inguinal hernia 06/13/2021 Common peroneal neuropathy 02/14/2021 Dyspnea on exertion 10/22/2019 Anxiety disorder 11/11/2018 Arthritis 11/11/2018 Disorder of kidney 11/11/2018 Excessive sweating 11/11/2018 Gout 11/11/2018 Obesity 11/11/2018 Pain of toe of left foot 11/11/2018 Aortic valve regurgitation 10/31/2018 Insomnia with sleep apnea 06/27/2017 Nocturia 06/27/2017 Body mass index 40+ - severely obese 06/27/2017 Sleep apnea 12/14/2015 Tobacco use and exposure - finding 09/28/2015 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 Edema 06/22/2015 Chronic kidney disease stage 2 05/05/2014 Nonrheumatic aortic valve insufficiency 05/05/20 14 Aortic valve sclerosis 05/05/2014 ST elevation (STEMI) myocard ial infarction involving other coronary artery of anterior wall 05/05/2014 Lung mass 03/10/2014 Renal cell carcinoma 01/05/2009 Atherosclerotic heart diseas e of 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 angina pectoris 10/20/1959 Overview (05/08/2022): STENT - CORONARY-03/26 TAXUS LAD, open in 13 for complete Hyperlipidemia 10/20/1959 Immunizations Immunization Administration Dates Next Due Influenza (IM) Preservative Free 09/23/2013 Influenza Split High Dose Pr eservative Free IM 08/21/2016 Influenza TIV (IM) 08/19/2014 Influenza, Injectable, Quadrivalent 08/03/2021 Influenza, Unspecified 08/26/2018,08/26/2017,10/2015 Pneumococcal Conjugate 13-Valent 11/08/2014 Pneumococcal Polysaccharide 05/10/2015 Sars-cov-2, Unspecified 08/03/2021,01/31/2021, Family History Medical History Relation Comments Diabetes mellitus Brother Hypertension Brother Heart disease Father Cancer Mother Diabetes mellitus Mother Heart disease Mother Hypertension Mother Diabetes mellitus Sister Hypertension Sister Relation Status Comments Brother Father Mother Sister Social History Tobacco Use Types Packs/Day Years Used Date Smoking Tobacco: Former Cigarettes Q uit: 1956 Smokeless Tobacco: Never Tobacco Cessation:Counseling Given: Not Answered Alcohol Use Standard Drinks/Week Comments Never 0 (1 standard drink = 0.6 oz pur e alcohol) Sex and Gender Information Value Date Recorded Sex Assigned at Male 04/30/2022 1:36 PM MDT Legal Sex Male 9:50 AM MDT Gender Identity Male 04/30/2022 1:36 PM MDT Sexual Orientation Not on file Last Filed Vital Signs Vital Sign Reading Time Taken Comments Blood Pressure 132/74 09/10/2022 2:02 PM DOUBLE ENDING MACHINE OPERATOR Pulse - - Temperature 36.7 C (98 F) 09/10/2022 2:02 PM DOUBLE ENDING MACHINE OPERATOR Respiratory Rate 18 09/10/2022 2:02 PM DOUBLE ENDING MACHINE OPERATOR Oxygen Saturation - - Inhaled Oxygen Concentration - - Weight 117 kg (257 lb) 09/10/2022 2:02 PM DOUBLE ENDING MACHINE OPERATOR Height 167.6 cm (5' 6) 09/10/2022 2:02 PM DOUBLE ENDING MACHINE OPERATOR Body Mass Index 41.48 09/10/2022 2:02 PM DOUBLE ENDING MACHINE OPERATOR Plan of Treatment Health Maintenance Due Date Last Done Comments Influenza Vaccine (Season Ended) 2025 08/26/2018, 08/26/2017, 08/21/2016, Additional history exists Pneumococcal PPSV23/PCV13 65 + Years / Low and Medium Risk Completed 05/10/2015, 11/08/2014 Insurance [place] [address] Care Teams Forming Machine Operator Relationship Specialty Start Date End Date Jorge Luis Morales MD [address] [address] PCP - General Internal Medicine 04/09/22
--- OUTSIDE RECORDS SUMMARY | 2025-03-16 14:11 | XMS_ITS | Continuity of Care Document ---
Author Organization [facility] Address [address] [place] [address] Phone Care Team Providers Care Exhaust Equipment Operator Name Role Phone Rogers OD, Jacobo Unavailable Unavailable Procedures Procedure Date Eye Exam & Treatment No Script Office/outpatient Visit, Est Eye Exam & Treatment Eye Exam Established Pt Eye Exam Established Pt Advance Directives Directive Yes / No Effective Date File Name No Information Encounters Encounter Description Practice Location Reason(s) For Visit Diagnoses Date Provider Providers Copied on Encounter [facility], [address] [place] [address] [address], [place], [place], [id number], [place] tel:[phone] [facility] No Information 8-200 9 Rogers OD Jacobo. [address] [facility] , [address], [place], [place], [facility], [place]. tel:[phone] Office/outpat ient Visit, Est [facility], [address] [place] [address] [address], [place], [place], [id number], [place] tel:[phone] [facility] No Information 4[address] 8 Krishnasamy Jose. [address] [facility] [address], [place], [place], [facility], [place]. tel:[phone] [facility], [address], [place], [place], [id number], [place] tel:[phone] [facility] No Information 6-200 8 Rogers OD Jacobo. [address] [facility] , [address], [place], [address], [place]. tel:[phone] [facility], [address], [place], [place], [id number], tel:[phone] [facility] No Information 6200 7 Rogers OD Jacobo. [address] [facility] , [address], [place], [place], [facility], [place]. tel:[phone] [facility], [address], [place], [place], [id number], [place] tel:[phone] [facility] No Information 9-200 6 Rogers OD Jacobo. [address] [facility] , [address], [place], [address], [place]. tel:[phone] Family History Family Member Type Diagnosis Age At Onset No Information Payers Payer name Insurance type Covered democrat ID Authoriza tion(s) [place] [id number] [facility] Custom Care [id number] Social History Type Description Quantity Date Captured Comments Sex Male Smoking Status No Information Chief Complaint And Reason For Visit No Information Reason For Referral Reason For Referral No Information History Of Present Illness Encounter Date Complaint History Of Prese nt Illness No Information Functional Status Date Functional Assessmen t No Information Instructions Date Instruction Additional Infor mation No Information Assessments Type Assessment Date No Information Patient Care Teams Name Effective Dates (start - stop) Status Members No Information
[2025-03-16 14:49] LABS: Albumin Level 4.1 g/dL (3.5-5.1); Anion Gap 8 mmol/L (4-12); Blood Urea Nitrogen 24 mg/dL (9-20); Calcium 9.6 mg/dL (8.4-10.2); Carbon Dioxide 26 mmol/L (22-30); Chloride 101 mmol/L (98-107); Estimated Glomerular Filt Rate 51; Glucose 97 mg/dL (65-110); Phosphorus 3.1 mg/dL (2.5-4.5); Potassium 4.1 mmol/L (3.4-5.0); Sodium 135 mmol/L (137-145)
[2025-03-16 14:56] LABS: Creatinine Urine 54.3 mg/dL; Total Protein Urine Random 29 mg/dL; Ur Ttl Prot Creatinine Ratio 0.53 mg/mg (0-0.20)
== END 2025-03-16 14:04 | disposition home or self-care (01) ==
LOC: ANHLAB 14:04
PROVIDERS: PCP Internal Medicine; Visit Provider Internal Medicine Nephrology
DX: I12.9 Hypertensive chronic kidney disease with stage 1 through stage 4 chronic kidney disease, or unspecified chronic kidney disease (principal); N18.31 Chronic kidney disease, stage 3a; Z90.5 Acquired absence of kidney
CPT/HCPCS: 36415; 80069; 82570; 84156

== ENCOUNTER 2025-08-30 14:51 | Outpatient (CLI) | payer MEDICARE, SELFPAY ==
--- NOTE | ~2025-08-30 | CT_ITS ---
CT diagnostic chest wo con HISTORY:multiple lung nodules COMPARISON: None. TECHNIQUE: Axial images of the chest were obtained without infusion of intravenous contrast. Dose optimization technique was utilized. FINDINGS: The examination demonstrates a 6.9 and 6.3 mm pulmonary nodule within please right middle lobe. There are several pleural-based nodules within the right upper lobe and right lower lobe measuring up to 9.4 mm. Cardiac size and mediastinal configuration are normal in appearance. No hilar or mediastinal lymphadenopathy is seen. The thoracic aorta is normal in caliber. Osseous structures are intact. IMPRESSION: Multiple pulmonary nodules within the right lung as above. Short-term follow-up CT in 6 months is recommended. All CT scans at this facility are performed using low dose modulation techniques as appropriate to perform exam including the following: automated exposure control; use of iterative reconstruction technique; adjustment of the mA and/or kV according to patient size (this includes techniques or standardized protocols for targeted exams where dose is matched to indication/reason for exam). Reviewed, dictated and finalized at location S. TAILOR IMPRESSION: Multiple pulmonary nodules within the right lung as above. Short-term follow-up CT in 6 months is recommended. All CT scans at this facility are performed using low dose modulation techniqu es as appropriate to perform exam including the following: automated exposure c ontrol; use of iterative reconstruction technique; adjustment of the mA and/or kV according to patient size (this includes techniques or standardized protocol s for targeted exams where dose is matched to indication/reason for exam).
== END 2025-08-30 14:52 | disposition home or self-care (01) ==
LOC: MICIMG 14:52
PROVIDERS: PCP Internal Medicine; Visit Provider Internal Medicine Pulmonary Disease
DX: R91.8 Other nonspecific abnormal finding of lung field (principal)
CPT/HCPCS: 71250